=== PATIENT | female | born 1970 | race Caucasian/White ===

== ENCOUNTER 2021-12-05 17:36 | Inpatient (IN) ==
[2021-12-05] MEDS ORDERED: IOPAMIDOL 100 ML BOTTLE IV ONE (17:37)
[2021-12-05] MEDS ORDERED: 0.9 % SODIUM CHLORIDE 1,000 ML IV ONE (17:59)
[2021-12-05] MEDS ORDERED: ONDANSETRON 4 MG/2 ML VIAL IV ONE (17:59)
--- NOTE | 2021-12-05 18:01 | Emergency Department Note ---
Abdominal Pain HPI General Chief Complaint: Abdominal Pain Stated Complaint: cold flu Time Seen by Provider: 12/05/21 17:58 Source: patient Mode of arrival: ambulatory Limitations: no limitations History of Present Illness HPI Narrative: Narrative: Patient is a 51-year-old female that comes into the emergency department today accompanied with her son. Patient reports that 2 weeks ago she started to notice abdominal bloating, diffuse abdominal pain that she describes as aching sensation, nausea, and diarrhea of loose brown stool. She denies melena or hematochezia. She has not had any vomiting. She denies fevers or chills. She has not had chest pain, cough, shortness of breath, or difficulty breathing. Over the last week she has noticed that her skin and eyes have turned yellow. She denies any changes with urine output. She denies any headache, weakness, or confusion. She does report taking all of her regular medications. She does drink 3 hard alcohol drinks a day. She reports her last drink was 2 days ago. She denies having any alcohol withdrawal symptoms, however her family reports that she does have alcohol withdrawal symptoms when she does not drink. Related Data Home Medications Medication Instructions Recorded Confirmed Krill Oil 300 mg PO QDAY 12/06/17 04/08/21 bupropion HCl 150 mg tablet,12 hr 150 mg PO BID tab 12/06/17 04/08/21 sustained-release ibuprofen 200 mg tablet 200 mg PO .COMPLEX 12/06/17 04/08/21 lansoprazole 30 mg capsule,delayed 30 mg PO QDAY cap 12/06/17 04/08/21 release losartan 50 mg-hydrochlorothiazide 1 tab PO QDAY 12/06/17 04/08/21 12.5 mg tablet magnesium oxide 500 mg capsule See Rx Instructions PO QDAY cap 12/06/17 04/08/21 multivitamin See Rx Instructions PO .COMPLEX 12/06/17 04/08/21 folic acid 400 mcg tablet 400 mcg PO QDAY 12/26/17 04/08/21 cyclobenzaprine 10 mg tablet 10 mg PO QDAY tab 03/10/21 04/08/21 diclofenac sodium 1 % topical gel 2 g TOPICAL QID 03/10/21 04/08/21 (Arthritis Pain (diclofenac)) hydrochlorothiazide 12.5 mg tablet 12.5 mg PO QAM 03/10/21 04/08/21 metoprolol succinate 50 mg 50 mg PO QDAY 03/10/21 04/08/21 tablet,extended release 24 hr naproxen sodium 220 mg capsule 440 mg PO BID PRN cap 03/10/21 04/08/21 (Aleve) soy isofla-blk cohosh-mag bark PO 03/10/21 04/08/21 [Estroven] tramadol 50 mg tablet 50 mg PO Q6H PRN 03/10/21 04/08/21 trazodone 50 mg tablet 50 mg PO QHS PRN 03/10/21 04/08/21 turmeric PO BID 03/10/21 04/08/21 Previous Rx's Medication Instructions Recorded ondansetron 4 mg disintegrating 4 mg PO Q4-6HP PRN #10 tab 07/09/20 tablet prednisone 20 mg tablet 40 mg PO QDAY #10 tab 07/21/21 Allergies Allergy/AdvReac Type Severity Reaction Status Date / Time rizatriptan [From Maxalt] AdvReac Mild felt weird Verified 12/06/21 07:38 Review of Systems ROS ROS Narrative: Narrative: All systems ED: reviewed and negative except as stated. [facility] Narrative Patient History Narrative: Narrative: Medical/Surgical/Family History All Active Problems (Updated 12/05/21 @ 20:31 by NYA Bradley) Alcoholic cirrhosis of liver with ascites (Acute) Hyponatremia (Acute) History of tobacco use (Chronic) Insomnia (Chronic) Lumbar radiculopathy (Chronic) Chronic pain (Chronic) Disorder of gallbladder (Chronic) Gastroenteritis (Acute) Acute dehydration (Acute) Elevated aldolase level (Acute) Paresthesia (Acute) Back pain (Acute) Polyarthralgia (Chronic) Rheumatoid factor positive (Chronic) Elevated liver enzymes (Chronic) Steatosis of liver (Chronic) Arthritis (Chronic) Arthralgia (Chronic) Hormonal disorder (Chronic) Anxiety (Chronic) Heartburn (Chronic) Weight loss (Chronic) Indigestion (Chronic) Abdominal pain (Chronic) HTN (hypertension) (Chronic) GERD without esophagitis (Chronic) Generalized anxiety disorder (Chronic) Depression (Chronic) Fatigue (Chronic) Feeling poorly (Chronic) Dysphagia (Chronic) Headache (Chronic) Joint pain (Chronic) Lack of appetite (Chronic) Nausea & vomiting (Acute) Rheumatoid arthritis (Chronic) Medical History Abdominal pain Acute dehydration Anxiety Arthralgia Arthritis Back pain Chronic pain Depression Disorder of gallbladder Dysphagia Elevated aldolase level Elevated liver enzymes Fatigue Feeling poorly Gastroenteritis Generalized anxiety disorder GERD without esophagitis Headache Heartburn History of tobacco use 30 year use - quit 2014 Hormonal disorder hormonal changes HTN (hypertension) Indigestion Insomnia Joint pain Lack of appetite Low back pain Lumbar radiculopathy Nausea & vomiting Paresthesia Polyarthralgia Rheumatoid arthritis Rheumatoid factor positive Steatosis of liver Weight loss Surgical History History of esophagogastroduodenoscopy (EGD) (11/22/17) History of laparoscopic cholecystectomy (02/09/18) Family History Mother Malignant neoplasm of lung Hypertension Alcohol abuse Sister Malignant neoplasm of lung Alcohol abuse Hypertension Father Alcohol abuse Social History Smoking Status: Former smoker Alcohol Intake Frequency: holiday/special occasion only Substance Use: does not use Exam Narrative Narrative: Narrative: General Limitations: no limitations General appearance: Present alert and in no apparent distress Eye Eye: Present EOMI and scleral icterus ENT ENT: Present normal oropharynx and mucous membranes moist Neck Neck: Present normal inspection and full ROM; Absent lymphadenopathy Chest Chest: Present normal inspection and symmetric chest wall rise Respiratory Respiratory: Present normal lung sounds bilaterally; Absent respiratory distress , rales/crackles or accessory muscle use Cardiovascular Cardiovascular: Present regular rate, normal rhythm and normal heart sounds; Absent systolic murmur or diastolic murmur Adbominal Abdominal: Present soft, distention, tenderness (Diffuse mild abdominal tenderness in all 4 quadrants.), normal bowel sounds, organomegaly (Hepatomegaly.) and ascites; Absent rebound, rigidity, mass, pulsatile mass or hernia Extremities Extremities: Present normal inspection, full ROM and normal capillary refill; Absent tenderness or cyanosis Back Back: Present normal inspection and full ROM Neurological Neurological: Present alert and oriented X3 Psychiatric Psychiatric: Present normal affect and normal mood Skin Skin: Present warm (WNL), dry and other (Jaundiced skin to the face and upper extremities.) Course Vital Signs Vital signs: Vital Signs Temperature 97.9 F 12/05/21 17:37 Pulse Rate 128 H 12/05/21 17:37 Respiratory Rate 18 02/05/22 17:37 Blood Pressure 100/68 02/05/22 17:37 Pulse Oximetry (%) 98 12/05/21 17:37 Temperature 98.3 F 12/06/21 08:01 Pulse Rate 122 H 12/06/21 08:01 Respiratory Rate 16 12/06/21 08:01 Blood Pressure 114/96 12/06/21 08:01 Pulse Oximetry (%) 97 12/06/21 08:01 MDM MDM Narrative Medical decision making narrative: Narrative: 51-year-old female that comes into the emergency department today with abdominal distention, pain, and jaundiced. She does drink alcohol. Her alcohol level today is elevated. Acetaminophen level normal. She does have tachycardia and received 1 L normal saline today. Creatinine level 1.6 and bilirubin is 10.8. AST 117. Alkaline phos 755. Patient's sodium is 116. Patient's white count today 17.9. Hemoglobin 11.1 and hematocrit 30.1. Concern of SBP and patient will need to have paracentesis. Ordered blood cultures today. Ordered 1 g Rocephin today in the emergency department to be given. Alcohol level today 0.244. Patient does not appear to show any signs of alcohol withdrawal syndrome. Acetaminophen level is normal. Hepatitis panel negative. Abdominal CT of abdomen and pelvis with contrast was read by direct radiology today and impression shows: 1. Fatty infiltration of liver. Slight nodularity of liver consistent with cirrhosis. Hypoattenuation in the lateral right lobe of liver which could represent a mass. This is not fully evaluated. Recommend perhaps an MRI or multiphase CT. 2. Moderate ascites in the abdomen and pelvis. 3. No evidence of intestinal obstruction. No ileus or enteritis. Moderate fecal debris in colon. Cholecystectomy was noted with no significant dilation of common bile duct. I was able to speak with hospitalist, Dr. Rhodes today about this patient. He does agree to admit patient to [facility] to the PCU. He did recommend drawing a CBC manual differential and a procalcitonin. Will order the urinalysis as this has not been collected yet. Patient will be admitted to [facility] today for the liver cirrhosis, hyponatremia, and concern of potential SBP. Lab Data Lab results reviewed: Yes I reviewed the patient's lab results. Result diagrams: 12/06/21 05:56 12/06/21 05:56 Labs: Lab Results 12/05/21 12/05/21 12/05/21 Range/Units 17:58 17:58 17:59 WBC 17.9 H (4.5-11.0) K/mcL RBC 3.33 L (3.59-5.38) M/mcL Hgb 11.1 L (11.2-15.7) g/dL Hct 30.1 L (34.1-44.9) % POC Hct (36-48) % MCV 90.4 (80.0-100.0) fL MCH 33.3 (26.0-34.0) pg MCHC 36.9 H (31.0-36.0) g/dL RDW 14.7 H (11.5-14.5) % Plt Count 214 (140-440) K/mcL MPV 9.8 (7.4-10.4) fL Neut % (Auto) 70.3 (38.0-78.0) % Lymph % (Auto) 21.1 (15.5-49.0) % [place] % (Auto) 7.9 (1.0-12.0) % Eos % (Auto) 0.4 (0.0-7.0) % Baso % (Auto) 0.3 (0.0-2.0) % Lymph # (Auto) 3.78 (1.50-4.80) K/mcL [place] # (Auto) 1.41 H (0.10-0.90) K/mcL Eos # (Auto) 0.07 (0.00-0.70) K/mcL Baso # (Auto) 0.06 (0.00-0.30) K/mcL Seg Neutrophils % (38-78) % Band Neutrophils % (0-10) % Lymphocytes % (15-49) % Monocytes % (Manual) (1-12) % Eosinophils % (Manual) (0-7) % Absolute Neutrophils 12.58 H (1.80-8.00) K/mcL Nucleated RBCs (0-0) % Platelet Estimate (Normal) RBC Morphology (Normal) Anisocytosis (None Seen) PT 18.0 H (11.9-14.5) sec INR 1.4 H (0.9-1.1) VBG Lactic Acid (0.5-2.0) mmol/L POC Sodium (133-145) mEq/L Sodium 116 L* (133-145) mmol/L POC Potassium (3.3-5.1) mEql/L Potassium 3.2 L (3.3-5.1) mmol/L POC Chloride (96-108) mEq/L Chloride 73 L (96-108) mmol/L Carbon Dioxide 24 (22-30) mmol/L POC Total CO2 (22-30) mmol/L Anion Gap 19.0 H (8.0-16.0) POC BUN (6-20) mg/dL BUN 6 (6-20) mg/dL Creatinine TNP POC Creatinine 1.6 H (0.6-1.2) mg/dL GFR Calculation TNP Glucose 105 (70-105) mg/dL POC Glucose (70-105) mg/dL Osmolality (280-300) mOSM/kg Uric Acid (2.5-8.0) mg/dL Calcium 7.9 L (8.6-10.4) mg/dL POC WB Ioniz Calcium (1.16-1.32) mmEq/L Total Bilirubin 10.8 H (0.1-1.0) mg/dL Direct Bilirubin (<0.3) mg/dL AST 117 H (<32) U/L ALT 33 (<40) U/L Alkaline Phosphatase 755 H (39-117) U/L Ammonia (11-51) umol/L Total Protein 5.9 (5.9-8.4) gm/dL Albumin 2.4 L (3.2-5.2) gm/dL Globulin 3.5 (2.2-3.7) gm/dL Albumin/Globulin Ratio 0.7 L (1.0-2.3) Procalcitonin (<0.10) ng/mL Urine Color Urine Appearance (Clear) Urine pH (5.0-9.0) Ur Specific [place] (1.000-1.035) Urine Protein (Negative) mg/dL Urine Glucose (UA) (Negative) mg/dL Urine Ketones (Negative) mg/dL Urine Occult Blood (Negative) tevin/mcL Urine Nitrate (Negative) Urine Bilirubin (Negative) mg/dL Urine Urobilinogen mg/dL Ur Leukocyte Esterase (Negative) /uL Urine RBC (0-3) /hpf Urine WBC (0-4) /hpf Ur Squamous Epith Cells (0-4) /hpf Urine Bacteria (0) /hpf Urine Mucus (None) /hpf Urine Yeast (Budding) (None) /hpf Ur Culture Indicated? Urine Osmolality (80-1000) mOSM/kg Ur Random Sodium mmol/L Acetaminophen ug/mL Ethyl Alcohol (<0.010) gm/dL Hepatitis A IgM Ab (Non-Reactive) Hep Bs Antigen (Negative) Hep B Core IgM Ab (Non-Reactive) Hepatitis C Antibody (Non-Reactive) 12/05/21 12/05/21 12/05/21 Range/Units 17:59 17:59 18:00 WBC (4.5-11.0) K/mcL RBC (3.59-5.38) M/mcL Hgb (11.2-15.7) g/dL Hct (34.1-44.9) % POC Hct (36-48) % MCV (80.0-100.0) fL MCH (26.0-34.0) pg MCHC (31.0-36.0) g/dL RDW (11.5-14.5) % Plt Count (140-440) K/mcL MPV (7.4-10.4) fL Neut % (Auto) (38.0-78.0) % Lymph % (Auto) (15.5-49.0) % [place] % (Auto) (1.0-12.0) % Eos % (Auto) (0.0-7.0) % Baso % (Auto) (0.0-2.0) % Lymph # (Auto) (1.50-4.80) K/mcL [place] # (Auto) (0.10-0.90) K/mcL Eos # (Auto) (0.00-0.70) K/mcL Baso # (Auto) (0.00-0.30) K/mcL Seg Neutrophils % (38-78) % Band Neutrophils % (0-10) % Lymphocytes % (15-49) % Monocytes % (Manual) (1-12) % Eosinophils % (Manual) (0-7) % Absolute Neutrophils (1.80-8.00) K/mcL Nucleated RBCs (0-0) % Platelet Estimate (Normal) RBC Morphology (Normal) Anisocytosis (None Seen) PT (11.9-14.5) sec INR (0.9-1.1) VBG Lactic Acid (0.5-2.0) mmol/L POC Sodium (133-145) mEq/L Sodium (133-145) mmol/L POC Potassium (3.3-5.1) mEql/L Potassium (3.3-5.1) mmol/L POC Chloride (96-108) mEq/L Chloride (96-108) mmol/L Carbon Dioxide (22-30) mmol/L POC Total CO2 (22-30) mmol/L Anion Gap (8.0-16.0) POC BUN (6-20) mg/dL BUN (6-20) mg/dL Creatinine POC Creatinine (0.6-1.2) mg/dL GFR Calculation Glucose (70-105) mg/dL POC Glucose (70-105) mg/dL Osmolality (280-300) mOSM/kg Uric Acid (2.5-8.0) mg/dL Calcium (8.6-10.4) mg/dL POC WB Ioniz Calcium (1.16-1.32) mmEq/L Total Bilirubin (0.1-1.0) mg/dL Direct Bilirubin (<0.3) mg/dL AST (<32) U/L ALT (<40) U/L Alkaline Phosphatase (39-117) U/L Ammonia 173 H (11-51) umol/L Total Protein (5.9-8.4) gm/dL Albumin (3.2-5.2) gm/dL Globulin (2.2-3.7) gm/dL Albumin/Globulin Ratio (1.0-2.3) Procalcitonin (<0.10) ng/mL Urine Color Urine Appearance (Clear) Urine pH (5.0-9.0) Ur Specific [place] (1.000-1.035) Urine Protein (Negative) mg/dL Urine Glucose (UA) (Negative) mg/dL Urine Ketones (Negative) mg/dL Urine Occult Blood (Negative) tevin/mcL Urine Nitrate (Negative) Urine Bilirubin (Negative) mg/dL Urine Urobilinogen mg/dL Ur Leukocyte Esterase (Negative) /uL Urine RBC (0-3) /hpf Urine WBC (0-4) /hpf Ur Squamous Epith Cells (0-4) /hpf Urine Bacteria (0) /hpf Urine Mucus (None) /hpf Urine Yeast (Budding) (None) /hpf Ur Culture Indicated? Urine Osmolality (80-1000) mOSM/kg Ur Random Sodium mmol/L Acetaminophen ug/mL Ethyl Alcohol 0.244 H (<0.010) gm/dL Hepatitis A IgM Ab Non-reactive (Non-Reactive) Hep Bs Antigen Negative (Negative) Hep B Core IgM Ab Non-reactive (Non-Reactive) Hepatitis C Antibody Non-reactive (Non-Reactive) 12/05/21 12/05/21 12/05/21 Range/Units 18:00 18:00 18:01 WBC TNP (4.5-11.0) K/mcL RBC TNP (3.59-5.38) M/mcL Hgb TNP (11.2-15.7) g/dL Hct TNP (34.1-44.9) % POC Hct (36-48) % MCV TNP (80.0-100.0) fL MCH TNP (26.0-34.0) pg MCHC TNP (31.0-36.0) g/dL RDW TNP (11.5-14.5) % Plt Count TNP (140-440) K/mcL MPV TNP (7.4-10.4) fL Neut % (Auto) (38.0-78.0) % Lymph % (Auto) (15.5-49.0) % [place] % (Auto) (1.0-12.0) % Eos % (Auto) (0.0-7.0) % Baso % (Auto) (0.0-2.0) % Lymph # (Auto) (1.50-4.80) K/mcL [place] # (Auto) (0.10-0.90) K/mcL Eos # (Auto) (0.00-0.70) K/mcL Baso # (Auto) (0.00-0.30) K/mcL Seg Neutrophils % 73 (38-78) % Band Neutrophils % 1 (0-10) % Lymphocytes % 16 (15-49) % Monocytes % (Manual) 9 (1-12) % Eosinophils % (Manual) 1 (0-7) % Absolute Neutrophils (1.80-8.00) K/mcL Nucleated RBCs 1 H (0-0) % Platelet Estimate Normal (Normal) RBC Morphology Abnormal A (Normal) Anisocytosis 1+ A (None Seen) PT (11.9-14.5) sec INR (0.9-1.1) VBG Lactic Acid (0.5-2.0) mmol/L POC Sodium (133-145) mEq/L Sodium (133-145) mmol/L POC Potassium (3.3-5.1) mEql/L Potassium (3.3-5.1) mmol/L POC Chloride (96-108) mEq/L Chloride (96-108) mmol/L Carbon Dioxide (22-30) mmol/L POC Total CO2 (22-30) mmol/L Anion Gap (8.0-16.0) POC BUN (6-20) mg/dL BUN (6-20) mg/dL Creatinine POC Creatinine (0.6-1.2) mg/dL GFR Calculation Glucose (70-105) mg/dL POC Glucose (70-105) mg/dL Osmolality (280-300) mOSM/kg Uric Acid (2.5-8.0) mg/dL Calcium (8.6-10.4) mg/dL POC WB Ioniz Calcium (1.16-1.32) mmEq/L Total Bilirubin (0.1-1.0) mg/dL Direct Bilirubin (<0.3) mg/dL AST (<32) U/L ALT (<40) U/L Alkaline Phosphatase (39-117) U/L Ammonia (11-51) umol/L Total Protein (5.9-8.4) gm/dL Albumin (3.2-5.2) gm/dL Globulin (2.2-3.7) gm/dL Albumin/Globulin Ratio (1.0-2.3) Procalcitonin 0.53 H (<0.10) ng/mL Urine Color Urine Appearance (Clear) Urine pH (5.0-9.0) Ur Specific [place] (1.000-1.035) Urine Protein (Negative) mg/dL Urine Glucose (UA) (Negative) mg/dL Urine Ketones (Negative) mg/dL Urine Occult Blood (Negative) tevin/mcL Urine Nitrate (Negative) Urine Bilirubin (Negative) mg/dL Urine Urobilinogen mg/dL Ur Leukocyte Esterase (Negative) /uL Urine RBC (0-3) /hpf Urine WBC (0-4) /hpf Ur Squamous Epith Cells (0-4) /hpf Urine Bacteria (0) /hpf Urine Mucus (None) /hpf Urine Yeast (Budding) (None) /hpf Ur Culture Indicated? Urine Osmolality (80-1000) mOSM/kg Ur Random Sodium mmol/L Acetaminophen < 5.0 ug/mL Ethyl Alcohol (<0.010) gm/dL Hepatitis A IgM Ab (Non-Reactive) Hep Bs Antigen (Negative) Hep B Core IgM Ab (Non-Reactive) Hepatitis C Antibody (Non-Reactive) 12/05/21 12/05/21 12/05/21 Range/Units 21:40 21:40 21:40 WBC (4.5-11.0) K/mcL RBC (3.59-5.38) M/mcL Hgb (11.2-15.7) g/dL Hct (34.1-44.9) % POC Hct 38 (36-48) % MCV (80.0-100.0) fL MCH (26.0-34.0) pg MCHC (31.0-36.0) g/dL RDW (11.5-14.5) % Plt Count (140-440) K/mcL MPV (7.4-10.4) fL Neut % (Auto) (38.0-78.0) % Lymph % (Auto) (15.5-49.0) % [place] % (Auto) (1.0-12.0) % Eos % (Auto) (0.0-7.0) % Baso % (Auto) (0.0-2.0) % Lymph # (Auto) (1.50-4.80) K/mcL [place] # (Auto) (0.10-0.90) K/mcL Eos # (Auto) (0.00-0.70) K/mcL Baso # (Auto) (0.00-0.30) K/mcL Seg Neutrophils % (38-78) % Band Neutrophils % (0-10) % Lymphocytes % (15-49) % Monocytes % (Manual) (1-12) % Eosinophils % (Manual) (0-7) % Absolute Neutrophils (1.80-8.00) K/mcL Nucleated RBCs (0-0) % Platelet Estimate (Normal) RBC Morphology (Normal) Anisocytosis (None Seen) PT (11.9-14.5) sec INR (0.9-1.1) VBG Lactic Acid (0.5-2.0) mmol/L POC Sodium 120 L (133-145) mEq/L Sodium (133-145) mmol/L POC Potassium 3.2 L (3.3-5.1) mEql/L Potassium (3.3-5.1) mmol/L POC Chloride 78 L (96-108) mEq/L Chloride (96-108) mmol/L Carbon Dioxide (22-30) mmol/L POC Total CO2 27 (22-30) mmol/L Anion Gap (8.0-16.0) POC BUN 4 L (6-20) mg/dL BUN (6-20) mg/dL Creatinine POC Creatinine 1.6 H (0.6-1.2) mg/dL GFR Calculation Glucose (70-105) mg/dL POC Glucose 84 (70-105) mg/dL Osmolality 311 H (280-300) mOSM/kg Uric Acid 6.1 (2.5-8.0) mg/dL Calcium (8.6-10.4) mg/dL POC WB Ioniz Calcium 0.89 L (1.16-1.32) mmEq/L Total Bilirubin (0.1-1.0) mg/dL Direct Bilirubin (<0.3) mg/dL AST (<32) U/L ALT (<40) U/L Alkaline Phosphatase (39-117) U/L Ammonia (11-51) umol/L Total Protein (5.9-8.4) gm/dL Albumin (3.2-5.2) gm/dL Globulin (2.2-3.7) gm/dL Albumin/Globulin Ratio (1.0-2.3) Procalcitonin (<0.10) ng/mL Urine Color Yellow Urine Appearance Clear (Clear) Urine pH 6.0 (5.0-9.0) Ur Specific [place] <= 1.005 (1.000-1.035) Urine Protein Negative (Negative) mg/dL Urine Glucose (UA) Negative (Negative) mg/dL Urine Ketones Negative (Negative) mg/dL Urine Occult Blood Moderate A (Negative) tevin/mcL Urine Nitrate Negative (Negative) Urine Bilirubin Negative (Negative) mg/dL Urine Urobilinogen Normal mg/dL Ur Leukocyte Esterase Negative (Negative) /uL Urine RBC 0 (0-3) /hpf Urine WBC 0 (0-4) /hpf Ur Squamous Epith Cells 2 (0-4) /hpf Urine Bacteria None (0) /hpf Urine Mucus Few A (None) /hpf Urine Yeast (Budding) Few A (None) /hpf Ur Culture Indicated? Yes Urine Osmolality 26 L (80-1000) mOSM/kg Ur Random Sodium 10 mmol/L Acetaminophen ug/mL Ethyl Alcohol (<0.010) gm/dL Hepatitis A IgM Ab (Non-Reactive) Hep Bs Antigen (Negative) Hep B Core IgM Ab (Non-Reactive) Hepatitis C Antibody (Non-Reactive) 12/05/21 12/05/21 Range/Units 21:40 22:16 WBC (4.5-11.0) K/mcL RBC (3.59-5.38) M/mcL Hgb (11.2-15.7) g/dL Hct (34.1-44.9) % POC Hct (36-48) % MCV (80.0-100.0) fL MCH (26.0-34.0) pg MCHC (31.0-36.0) g/dL RDW (11.5-14.5) % Plt Count (140-440) K/mcL MPV (7.4-10.4) fL Neut % (Auto) (38.0-78.0) % Lymph % (Auto) (15.5-49.0) % [place] % (Auto) (1.0-12.0) % Eos % (Auto) (0.0-7.0) % Baso % (Auto) (0.0-2.0) % Lymph # (Auto) (1.50-4.80) K/mcL [place] # (Auto) (0.10-0.90) K/mcL Eos # (Auto) (0.00-0.70) K/mcL Baso # (Auto) (0.00-0.30) K/mcL Seg Neutrophils % (38-78) % Band Neutrophils % (0-10) % Lymphocytes % (15-49) % Monocytes % (Manual) (1-12) % Eosinophils % (Manual) (0-7) % Absolute Neutrophils (1.80-8.00) K/mcL Nucleated RBCs (0-0) % Platelet Estimate (Normal) RBC Morphology (Normal) Anisocytosis (None Seen) PT (11.9-14.5) sec INR (0.9-1.1) VBG Lactic Acid 5.8 H* (0.5-2.0) mmol/L POC Sodium (133-145) mEq/L Sodium (133-145) mmol/L POC Potassium (3.3-5.1) mEql/L Potassium (3.3-5.1) mmol/L POC Chloride (96-108) mEq/L Chloride (96-108) mmol/L Carbon Dioxide (22-30) mmol/L POC Total CO2 (22-30) mmol/L Anion Gap (8.0-16.0) POC BUN (6-20) mg/dL BUN (6-20) mg/dL Creatinine POC Creatinine (0.6-1.2) mg/dL GFR Calculation Glucose (70-105) mg/dL POC Glucose (70-105) mg/dL Osmolality (280-300) mOSM/kg Uric Acid (2.5-8.0) mg/dL Calcium (8.6-10.4) mg/dL POC WB Ioniz Calcium (1.16-1.32) mmEq/L Total Bilirubin (0.1-1.0) mg/dL Direct Bilirubin 7.1 H (<0.3) mg/dL AST (<32) U/L ALT (<40) U/L Alkaline Phosphatase (39-117) U/L Ammonia (11-51) umol/L Total Protein (5.9-8.4) gm/dL Albumin (3.2-5.2) gm/dL Globulin (2.2-3.7) gm/dL Albumin/Globulin Ratio (1.0-2.3) Procalcitonin (<0.10) ng/mL Urine Color Urine Appearance (Clear) Urine pH (5.0-9.0) Ur Specific [place] (1.000-1.035) Urine Protein (Negative) mg/dL Urine Glucose (UA) (Negative) mg/dL Urine Ketones (Negative) mg/dL Urine Occult Blood (Negative) tevin/mcL Urine Nitrate (Negative) Urine Bilirubin (Negative) mg/dL Urine Urobilinogen mg/dL Ur Leukocyte Esterase (Negative) /uL Urine RBC (0-3) /hpf Urine WBC (0-4) /hpf Ur Squamous Epith Cells (0-4) /hpf Urine Bacteria (0) /hpf Urine Mucus (None) /hpf Urine Yeast (Budding) (None) /hpf Ur Culture Indicated? Urine Osmolality (80-1000) mOSM/kg Ur Random Sodium mmol/L Acetaminophen ug/mL Ethyl Alcohol (<0.010) gm/dL Hepatitis A IgM Ab (Non-Reactive) Hep Bs Antigen (Negative) Hep B Core IgM Ab (Non-Reactive) Hepatitis C Antibody (Non-Reactive) ED POC Tests ED POC Tests: SEGUN - SARS Antigen Negative EKG Data EKG #1: EKG attestation: Yes I reviewed and interpreted this EKG. and Yes There are no EKG findings of acute coronary syndrome EKG shows normal: sinus rhythm Rate: tachycardia Discharge Plan Patient/Caregiver Discharge Instructions Pt seen by HYDROGEN TREATER/PA only: No Clinical Impression: Alcoholic cirrhosis of liver with ascites, Hyponatremia Patient Disposition: Xfer As Inpt ([facility] [place] Condition: Fair Discharge Date/Time: 12/05/21 23:26 Discharge Location: [facility]
[2021-12-05 18:21] LABS: POC Creatinine 1.6 mg/dL (0.6-1.2)
[2021-12-05 19:18] LABS: Alcohol,Blood 0.244 gm/dL (<0.010); INR 1.4 (0.9-1.1)
[2021-12-05 19:30] LABS: Basophils # (Auto) 0.06 K/mcL (0.00-0.30); Basophils % (Auto) 0.3 % (0.0-2.0); Eosinophils # (Auto) 0.07 K/mcL (0.00-0.70); Eosinophils % (Auto) 0.4 % (0.0-7.0); Hematocrit 30.1 % (34.1-44.9); Hemoglobin 11.1 g/dL (11.2-15.7); Lymphocytes # (Auto) 3.78 K/mcL (1.50-4.80); Lymphocytes % (Auto) 21.1 % (15.5-49.0); Mean Cell Volume 90.4 fL (80.0-100.0); Mean Corpuscular HGB Conc 36.9 g/dL (31.0-36.0); Mean Platelet Volume 9.8 fL (7.4-10.4); Monocytes # (Auto) 1.41 K/mcL (0.10-0.90); Monocytes % (Auto) 7.9 % (1.0-12.0); Neutrophils % (Auto) 70.3 % (38.0-78.0); Platelet Count 214 K/mcL (140-440); RBC 3.33 M/mcL (3.59-5.38); Red Cell Distribution Width 14.7 % (11.5-14.5); WBC 17.9 K/mcL (4.5-11.0)
[2021-12-05 19:33] LABS: ALT/SGPT 33 U/L (<40); AST/SGOT 117 U/L (<32); Albumin 2.4 gm/dL (3.2-5.2); Albumin/Globulin Ratio 0.7 (1.0-2.3); Alkaline Phosphatase 755 U/L (39-117); Bilirubin,Total 10.8 mg/dL (0.1-1.0); Blood Urea Nitrogen 6 mg/dL (6-20); Calcium 7.9 mg/dL (8.6-10.4); Carbon Dioxide 24 mmol/L (22-30); Chloride 73 mmol/L (96-108); Globulin 3.5 gm/dL (2.2-3.7); Glucose 105 mg/dL (70-105)
[2021-12-05 19:48] LABS: Hepatitis B Surface Antigen Negative (Negative); Hepatitis C Virus Antibody Non-Reactive (Non-Reactive)
[2021-12-05] MEDS ORDERED: cefTRIAXone 1 GM VIAL IV ONE (20:04)
[2021-12-05] MEDS ORDERED: THIAMINE 100 MG in 0.9 % SODIUM CHLORIDE 50 ML IV ONE (22:02)
--- NOTE | 2021-12-05 22:07 | Internal Med History&Physical ---
HPI History of Present Illness Patient information: Note initiated : 12/05/21 at 9:49 pm Service Date, if different from initiated Date: [] Patient: Berkley Elizalde a 51 y/o F admitted on for cold flu. Chief Complaint: [] History of present illness: Ms. Elizalde is a 51 year old F To the hospital with generalized malaise and weakness and abdominal bloating over the past couple weeks. She had some headaches nausea and loose stools. Denies hematemesis or melena. No vomiting. Denies fever chills. No cough shortness of breath or chest pain. Per family has noticed her distended abdomen and more significantly her skin color change in eye color change to yellow. She is a chronic alcohol user and admitted to 3 hard drinks per day to the PA in the ED but family says she drinks more than that. Family also reported that she does have withdrawal symptoms when she does not drink. She does not carry a diagnosis of cirrhosis. In the ED her bilirubin was 10. CT abdomen pelvis did not show any biliary dilation but did show fatty infiltration and nodularity, moderate ascites. INR was 1.4 Sodium was 116 Leukocytosis. Alcohol level 244 Ammonia 173 and an elevated AST Review of Systems: Pertinent positives as above. Denies fever/chills//vomiting/chest pain/cough/dyspnea. Remaining 10 point review of system reviewed negative PFSH PFSH All Active Problems (Updated 12/05/21 @ 20:31 by NYA Bradley) Alcoholic cirrhosis of liver with ascites (Acute) Hyponatremia (Acute) History of tobacco use (Chronic) Insomnia (Chronic) Lumbar radiculopathy (Chronic) Chronic pain (Chronic) Disorder of gallbladder (Chronic) Gastroenteritis (Acute) Acute dehydration (Acute) Elevated aldolase level (Acute) Paresthesia (Acute) Back pain (Acute) Polyarthralgia (Chronic) Rheumatoid factor positive (Chronic) Elevated liver enzymes (Chronic) Steatosis of liver (Chronic) Arthritis (Chronic) Arthralgia (Chronic) Hormonal disorder (Chronic) Anxiety (Chronic) Heartburn (Chronic) Weight loss (Chronic) Indigestion (Chronic) Abdominal pain (Chronic) HTN (hypertension) (Chronic) GERD without esophagitis (Chronic) Generalized anxiety disorder (Chronic) Depression (Chronic) Fatigue (Chronic) Feeling poorly (Chronic) Dysphagia (Chronic) Headache (Chronic) Joint pain (Chronic) Lack of appetite (Chronic) Nausea & vomiting (Acute) Rheumatoid arthritis (Chronic) Medical History Abdominal pain Acute dehydration Anxiety Arthralgia Arthritis Back pain Chronic pain Depression Disorder of gallbladder Dysphagia Elevated aldolase level Elevated liver enzymes Fatigue Feeling poorly Gastroenteritis Generalized anxiety disorder GERD without esophagitis Headache Heartburn History of tobacco use 30 year use - quit 2014 Hormonal disorder hormonal changes HTN (hypertension) Indigestion Insomnia Joint pain Lack of appetite Low back pain Lumbar radiculopathy Nausea & vomiting Paresthesia Polyarthralgia Rheumatoid arthritis Rheumatoid factor positive Steatosis of liver Weight loss Surgical History History of esophagogastroduodenoscopy (EGD) (11/22/17) History of laparoscopic cholecystectomy (02/09/18) Family History Mother Malignant neoplasm of lung Hypertension Alcohol abuse Sister Malignant neoplasm of lung Alcohol abuse Hypertension Father Alcohol abuse Social History (Updated 03/27/21 @ 11:21 by Corin Hackett) marital status: education level: college occupational status: 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: 2 children smoking status: Former smoker alcohol intake frequency: holiday/special occasion only substance use type: does not use MEDS/ALLERGIES Home Medications and Allergies Home Medications Medication Instructions Recorded Confirmed Type Krill Oil 300 mg PO QDAY 12/06/17 04/08/21 History bupropion HCl 150 mg tablet,12 hr 150 mg PO BID tab 12/06/17 04/08/21 History sustained-release ibuprofen 200 mg tablet 200 mg PO .COMPLEX 12/06/17 04/08/21 History lansoprazole 30 mg capsule,delayed 30 mg PO QDAY cap 12/06/17 04/08/21 History release losartan 50 mg-hydrochlorothiazide 1 tab PO QDAY 12/06/17 04/08/21 History 12.5 mg tablet magnesium oxide 500 mg capsule See Rx Instructions PO QDAY cap 12/06/17 04/08/21 History multivitamin See Rx Instructions PO .COMPLEX 12/06/17 04/08/21 History folic acid 400 mcg tablet 400 mcg PO QDAY 12/26/17 04/08/21 History ondansetron 4 mg disintegrating 4 mg PO Q4-6HP PRN #10 tab 07/09/20 04/08/21 Rx tablet cyclobenzaprine 10 mg tablet 10 mg PO QDAY tab 03/10/21 04/08/21 History diclofenac sodium 1 % topical gel 2 g TOPICAL QID 03/10/21 04/08/21 History (Arthritis Pain (diclofenac)) hydrochlorothiazide 12.5 mg tablet 12.5 mg PO QAM 03/10/21 04/08/21 History metoprolol succinate 50 mg 50 mg PO QDAY 03/10/21 04/08/21 History tablet,extended release 24 hr naproxen sodium 220 mg capsule 440 mg PO BID PRN cap 03/10/21 04/08/21 History (Aleve) soy isofla-blk cohosh-mag bark PO 03/10/21 04/08/21 History [Estroven] tramadol 50 mg tablet 50 mg PO Q6H PRN 03/10/21 04/08/21 History trazodone 50 mg tablet 50 mg PO QHS PRN 03/10/21 04/08/21 History turmeric PO BID 03/10/21 04/08/21 History prednisone 20 mg tablet 40 mg PO QDAY #10 tab 07/21/21 Rx Allergies Allergy/AdvReac Type Severity Reaction Status Date / Time rizatriptan [From [facility]] Allergy Unknown felt weird Verified 04/08/21 10:39 EXAM Constitutional Vitals: Temp Pulse Resp BP Pulse Ox 97.9 F 117 H 18 111/83 97 12/05/21 17:37 12/05/21 21:28 12/05/21 17:37 12/05/21 21:15 12/05/21 21:28 Exam: General: Alert, Awake, No acute Distress Eyes/N/T: EOMI, PERRL, scleral icterus Head/Neck: neck supple, normocephalic atraumatic CV: Tacky but regular, No murmurs, normal s1/s2 Pulm: Clear b/l, no wheezing/rhonchi/rales Abd: soft, mildly distended and mild tenderness to palpation analyzed, +BS x4 Ext: no clubbing/cyanosis/edema Neuro: Alert, no focal deficits, moves all extremities, CN 2-12 grossly intact, symmetrical strength b/l upper/lower, sensations intact b/l upper/lower Skin: warm/dry DATA Data Completed and Pending Labs: Labs from last 24 hours 12/05/21 12/05/21 12/05/21 18:01 18:00 18:00 WBC Pending RBC Pending Hgb Pending Hct Pending MCV Pending MCH Pending MCHC Pending RDW Pending Plt Count Pending MPV Pending Neut % (Auto) Lymph % (Auto) Republic % (Auto) Eos % (Auto) Baso % (Auto) Lymph # (Auto) Republic # (Auto) Eos # (Auto) Baso # (Auto) Absolute Neutrophils Platelet Estimate Pending RBC Morphology Pending PT INR Sodium Potassium Chloride Carbon Dioxide Anion Gap BUN Creatinine POC Creatinine GFR Calculation Glucose Calcium Total Bilirubin AST ALT Alkaline Phosphatase Ammonia Total Protein Albumin Globulin Albumin/Globulin Ratio Procalcitonin Pending Acetaminophen < 5.0 Ethyl Alcohol Hepatitis A IgM Ab Hep Bs Antigen Hep B Core IgM Ab Hepatitis C Antibody 12/05/21 12/05/21 12/05/21 18:00 17:59 17:59 WBC RBC Hgb Hct MCV MCH MCHC RDW Plt Count MPV Neut % (Auto) Lymph % (Auto) Republic % (Auto) Eos % (Auto) Baso % (Auto) Lymph # (Auto) Republic # (Auto) Eos # (Auto) Baso # (Auto) Absolute Neutrophils Platelet Estimate RBC Morphology PT INR Sodium Potassium Chloride Carbon Dioxide Anion Gap BUN Creatinine POC Creatinine GFR Calculation Glucose Calcium Total Bilirubin AST ALT Alkaline Phosphatase Ammonia 173 H Total Protein Albumin Globulin Albumin/Globulin Ratio Procalcitonin Acetaminophen Ethyl Alcohol 0.244 H Hepatitis A IgM Ab Non-reactive Hep Bs Antigen Negative Hep B Core IgM Ab Non-reactive Hepatitis C Antibody Non-reactive 12/05/21 12/05/21 12/05/21 17:59 17:58 17:58 WBC 17.9 H RBC 3.33 L Hgb 11.1 L Hct 30.1 L MCV 90.4 MCH 33.3 MCHC 36.9 H RDW 14.7 H Plt Count 214 MPV 9.8 Neut % (Auto) 70.3 Lymph % (Auto) 21.1 Republic % (Auto) 7.9 Eos % (Auto) 0.4 Baso % (Auto) 0.3 Lymph # (Auto) 3.78 Republic # (Auto) 1.41 H Eos # (Auto) 0.07 Baso # (Auto) 0.06 Absolute Neutrophils 12.58 H Platelet Estimate RBC Morphology PT 18.0 H INR 1.4 H Sodium 116 L* Potassium 3.2 L Chloride 73 L Carbon Dioxide 24 Anion Gap 19.0 H BUN 6 Creatinine TNP POC Creatinine 1.6 H GFR Calculation TNP Glucose 105 Calcium 7.9 L Total Bilirubin 10.8 H AST 117 H ALT 33 Alkaline Phosphatase 755 H Ammonia Total Protein 5.9 Albumin 2.4 L Globulin 3.5 Albumin/Globulin Ratio 0.7 L Procalcitonin Acetaminophen Ethyl Alcohol Hepatitis A IgM Ab Hep Bs Antigen Hep B Core IgM Ab Hepatitis C Antibody A/P Narrative A/P Narrative: A: *Hyponatremia: 2/2 cirrhosis *Acute alcoholic hepatitis: Diminished function score = 34 *Cirrhosis, alcoholic: w/mild coagulopathy & hyperbilirubinemia & elevated ammonia -MELD=27(20%mortality), Child-Mendez=class C (45%/35%) *Alcohol abuse: High risk for withdrawal *Leukocytosis: No source of infection found yet, versus reactive *Hypokalemia: *Coagulopathy *Depression: *GERD: *Chronic pain: P: -3%/desmopressin, f/u sodium -paracentesis in AM -prednisolone 40mg x28 days, followed by 16-day taper -CIWA protocol, vitamins, prn benzo -liver u/s with doppler -lactulose, f/u ammonia -UA/pct pending, f/u wbc -lasix/aldactone prior to d/c -f/u closely with GI/prescription benefit specialist -Home medication reconciliation -ppx: Lovenox(after paracentesis)/home PPI Full code Time Spent With Patient Time: Total time spent is greater than 50% in coordination of care (as documented) at patient's floor/unit and/or counseling patient:
[2021-12-05 22:08] LABS: Anisocytosis 1+ (None Seen); Band Neutrophils % 1 % (0-10); Eosinophils % (Manual) 1 % (0-7); Lymphocytes % 16 % (15-49); Monocytes % (Manual) 9 % (1-12); Nucleated Red Blood Cells 1 % (0-0); Platelet Estimate NORMAL (Normal); RBC Morphology ABNORMAL (Normal); Segmented Neutrophils % 73 % (38-78)
[2021-12-05 22:41] LABS: Appearance,Urine Clear (Clear); Bilirubin,Urine Negative (Negative); Color,Urine Yellow; Culture Indicated,Urine Yes; Glucose,Urine (UA) Negative (Negative); Ketones,Urine Negative (Negative); Leukocyte Esterase,Urine Negative /uL (Negative); Mucus,Urine FEW /hpf; Nitrate,Urine Negative (Negative); Osmolality,Urine 26 mOSM/kg (80-1000); Protein,Urine Negative (Negative); Specific Gravity,Urine <= 1.005 (1.000-1.035); Urine Blood Moderate ery/mcL (Negative); Urine Budding Yeast FEW /hpf; Urine RBC 0 /hpf (0-3); Urine Squamous Epithelial Cell 2 /hpf (0-4); Urine WBC 0 /hpf (0-4); Urobilinogen,Urine Normal
[2021-12-05 22:44] LABS: POC Calcium, Ionized 0.89 mmEq/L (1.16-1.32); POC Creatinine 1.6 mg/dL (0.6-1.2); POC Potassium 3.2 mEql/L (3.3-5.1)
[2021-12-05] MEDS ORDERED: 0.9 % SODIUM CHLORIDE 500 ML IV ONE (22:52)
[2021-12-05 22:59] LABS: Uric Acid 6.1 mg/dL (2.5-8.0)
[2021-12-05 23:00] LABS: Sodium, Urine Random 10 mmol/L
[2021-12-05] MEDS ORDERED: cefTRIAXone 2 GM in DEXTROSE 5% IN WATER 50 ML IV SCH (23:00)
[2021-12-05] MEDS: 0.9 % SODIUM CHLORIDE 10 ML SYRINGE IV SCH (23:30)
[2021-12-05] MEDS ORDERED: SODIUM CHLORIDE 3 % 500 ML IV SCH (23:32)
[2021-12-05] MEDS ORDERED: LORazepam 2 MG/ML VIAL IV PRN (23:32)
[2021-12-05] MEDS ORDERED: MAGNESIUM SULFATE 2 GM/50 ML BAG IV PRN (23:32)
[2021-12-05] MEDS ORDERED: LACTULOSE 20 GM/30 ML ORAL.SOL PO SCH (23:32)
[2021-12-05] MEDS ORDERED: POTASSIUM CHLORIDE 20 MEQ TABLET PO PRN ×2 (23:32)
[2021-12-05] MEDS ORDERED: ONDANSETRON 4 MG/2 ML VIAL IV PRN (23:32)
[2021-12-05] MEDS ORDERED: METOCLOPRAMIDE 10 MG/2 ML VIAL IV PRN (23:32)
[2021-12-05] MEDS ORDERED: IPRATROPIUM/ALBUTEROL 3 ML AMPUL.NEB NEB PRN (23:32)
[2021-12-05] MEDS ORDERED: POTASSIUM CHLORIDE 20 MEQ TABLET PO ONE (23:32)
[2021-12-05] MEDS ORDERED: POTASSIUM CHLORIDE 40 MEQ in DEXTROSE 5% IN WATER 500 ML IV PRN (23:32)
[2021-12-06] MEDS ORDERED: POTASSIUM CHLORIDE 20 MEQ TABLET PO ONE (00:23)
[2021-12-06] MEDS ORDERED: cefTRIAXone 2 GM VIAL ONE (00:23)
[2021-12-06] MEDS ORDERED: LACTULOSE 20 GM/30 ML ORAL.SOL ONE (00:24)
[2021-12-06] MEDS ORDERED: cefTRIAXone 1 GM VIAL ONE (01:01)
[2021-12-06] MEDS: 0.9 % SODIUM CHLORIDE 10 ML SYRINGE IV SCH ×7 (01:15→20:26)
[2021-12-06] MEDS: DESMOPRESSIN ACETATE 1 MCG in 0.9 % SODIUM CHLORIDE 50 ML IV SCH ×3 (01:21→13:45)
[2021-12-06] MEDS: prednisoLONE 15 MG/5 ML ORAL SOL PO SCH ×2 (02:09→09:00)
[2021-12-06] MEDS ORDERED: ONDANSETRON 4 MG/2 ML VIAL ONE (02:26)
[2021-12-06 02:30] LABS: POC Blood Urea Nitrogen 5 mg/dL (6-20); POC CO2 25 mmol/L (22-30); POC Calcium, Ionized 0.78 mmEq/L (1.16-1.32); POC Chloride 80 mEq/L (96-108); POC Creatinine 1.4 mg/dL (0.6-1.2); POC Glucose, Random 79 mg/dL (70-105); POC Hematocrit 37 % (36-48); POC Potassium 2.9 mEql/L (3.3-5.1); POC Sodium 122 mEq/L (133-145)
[2021-12-06] MEDS ORDERED: POTASSIUM CHLORIDE 20 MEQ/10 ML VIAL IV ONE (03:24)
--- NOTE | 2021-12-06 03:33 | Cat Scan Report ---
CLINICAL INFORMATION: Abdominal pain, bloating and jaundice COMPARISON: None. TECHNIQUE: Following enteric contrast, 80 cc of Isovue-370 were injected intravenously, and 60 seconds later, 0.625 mm helical slices were obtained from the mid heart through the subtrochanteric regions. Following reconstruction, 2.5 mm sagittal, coronal and axial reformatted images were processed and reviewed at bone, lung and soft tissue windows. Five minutes later, 0.625 mm helical slices were obtained from the mid heart through the kidneys and viewed at soft tissue windows.The exam was performed using radiation dose optimization techniques including, but not limited to, automated exposure control, adjustment of the mA and/or kV according to patient size and use of iterative reconstruction technique. FINDINGS: The lung bases show small left pleural effusion and scattered subsegmental atelectasis and/or scarring. No nodules. The visualized heart is grossly normal. Abdominal images show severe diffuse fatty infiltration of the liver which is moderately enlarged-18 cm in vertical dimension at midclavicular line. The attenuation pattern is also inhomogeneous with slight cortical irregularity suggestive of cirrhosis. Multiple extraordinarily vague low-attenuation lesions scattered throughout the periphery of the liver which are difficult to characterize given the fatty background. The largest is 3.5 cm in the inferior hepatic lobe. There is a 3 cm homogeneous fat-containing lesion in the man hepatis region. These could potentially represent metastases from unknown primary carcinoma. The infrahepatic IVC is markedly constricted suggesting surrounding fibrosis from hepatic cirrhosis. Moderate varices are seen in the periesophageal and perigastric region with mild varices in the splenic region. Moderate ascites is predominantly located in the pelvic region. The gallbladder is surgically absent. The intrahepatic and common hepatic ducts are normal caliber. The common bile duct is mildly dilated-8 mm. A extremely vague 22 mm low-attenuation lesion in the medial pancreatic head may represent a cyst or mass. The pancreatic duct is normal caliber. Both kidneys, adrenal glands, spleen and aorta including aortic branches are normal in size configuration and attenuation without focal lesion. There is no free air or adenopathy. Pelvic images show urinary bladder is collapsed due to ascites. Slightly retroverted uterus is normal postmenopausal size 6.7 x 3.1 cm. There is moderate thickening of the endometrium measures 14 mm. Bone windows show no focal osseous lesions. There is congestion of the anterior epidural veins throughout the lumbar spine. IMPRESSION: 1. Hepatomegaly with severe hepatic steatosis. Probable cirrhosis featuring extrinsic compression infrahepatic IVC, moderate varices in the paraesophageal and gastric region with mild varices in the perisplenic region. There is also moderate ascites. 2. Scattered vague low-attenuation foci in the periphery of the liver are difficult to characterize given the severe fatty background. This may merely represent more concentrated region of fat or metastatic disease from unknown primary carcinoma. A 2.9 cm lipoma is seen in the man hepatis region. Suggest abdominal MRI/MRCP to better characterize the liver. 3. Straightly magnetic 2.2 cm low-attenuation lesion in the medial pancreatic head may represent a cyst or mass or mass. This will also be best evaluated with abdominal MRI. 4. Mild endometrial thickening. If the patient is premenopausal, this may be within normal limits. If postmenopausal, this would be considered abnormal. Please correlate with pelvic ultrasound. 5. Small left pleural effusion. Interpreted and Authenticated by: Adam Meehan 12/06/21
[2021-12-06] MEDS: chlordiazePOXIDE 25 MG CAPSULE PO PRN ×2 (05:41→10:29)
[2021-12-06] MEDS ORDERED: chlordiazePOXIDE 25 MG CAPSULE PO ONE ×2 (05:43→05:44)
[2021-12-06 08:04] LABS: Hemoglobin 10.1 g/dL (11.2-15.7); Mean Corpuscular HGB Conc 36.1 g/dL (31.0-36.0); Mean Platelet Volume 10.1 fL (7.4-10.4); Platelet Count 192 K/mcL (140-440); RBC 2.98 M/mcL (3.59-5.38); Red Cell Distribution Width 15.4 % (11.5-14.5); WBC 15.5 K/mcL (4.5-11.0)
[2021-12-06] MEDS ORDERED: ALBUMIN HUMAN 25 GM/100 ML BAG IV ONE (08:08)
--- NOTE | 2021-12-06 08:12 | Internal Med Progress Note ---
SUBJECTIVE Subjective Patient information: Note initiated : 12/06/21 at 8:03 am Service Date, if different from initiated Date: [] Patient: Berkley Elizalde 51 y/o F admitted on 12/05/21 for cold flu. Chief Complaint: [] Interval history: History of present illness: Ms. Elizalde is a 51 year old F To the hospital with generalized malaise and weakness and abdominal bloating over the past couple weeks. She had some headaches nausea and loose stools. Denies hematemesis or melena. No vomiting. Denies fever chills. No cough shortness of breath or chest pain. Per family has noticed her distended abdomen and more significantly her skin color change in eye color change to yellow. She is a chronic alcohol user and admitted to 3 hard drinks per day to the PA in the ED but family says she drinks more than that. Family also reported that she does have withdrawal symptoms when she does not drink. She does not carry a diagnosis of cirrhosis. In the ED her bilirubin was 10. CT abdomen pelvis did not show any biliary dilation but did show fatty infiltration and nodularity, moderate ascites. INR was 1.4 Sodium was 116 Leukocytosis. Alcohol level 244 Ammonia 173 and an elevated AST 2/6 No overnight event or new complaints. Patient denies any vomiting overnight. Does have some diarrhea. Headache Leukocytosis but no bandemia. Procalcitonin mildly elevated but difficult to interpret in liver failure, same with lactate level. INR stable Continue antibiotics until paracentesis done. Review of Systems: denies fever/chills/vomiting/chest pain/cough/dyspnea. Otherwise see above. Constitutional Vitals: Vital Signs Temp Pulse Resp BP Pulse Ox 98.2 F 119 H 13 119/89 96 12/06/21 04:01 12/06/21 06:01 12/06/21 06:01 12/06/21 06:01 12/06/21 06:01 Period Temp Pulse Resp BP Sys/Hutton Pulse Ox Last 24 Hr 97.6 F-98.2 F 113-128 13-21 97-121/68-90 91-100 Intake and Output 12/05/21 12/06/21 12/06/21 21:59 05:59 13:59 Intake Total 1864.25 Output Total 275 Balance 1589.25 Weight 58.967 kg 68.719 kg Intake & Output: Intake & Output 12/05/21 12/06/21 12/06/21 21:59 05:59 13:59 Intake Total 1864.25 Output Total 275 Balance 1589.25 Weight 58.967 kg 68.719 kg Intake: IV 1644.25 Sodium Chloride 0.9% 1,000 ml @ 1000 Wide Open IV BOLUS ONE Rx#: [id number] Sodium Chloride 0.9% 500 ml @ 500 Wide Open IV BOLUS ONE Rx#: [id number] Ddavp 1 Mcg In Sodium Chloride 50.25 0.9% 50 ml @ 200 mls/hr IV Q6 DAVID Rx#:[id number] Potassium Chloride 40 Meq In 43 Dextrose 5% in Water 500 ml @ 130 mls/hr IV UD PRN Rx#: [id number] Vitamin B1 100 mg In Sodium 51 Chloride 0.9% 50 ml @ 50 mls/hr IV ONCE ONE Rx#:[id number] Oral 220 Output: Void Amount 75 Urine/Stool Mix 200 Other: Urine Appearance Clear Urine Color [place] Stool Size Small Small Stool Color Yellow Yellow Green Green Pale Stool Consistency Watery Watery # Bowel Movements 1 1 # of times incontinent of 1 0 Bowels Exam: General: Alert, Awake, No acute Distress Eyes/N/T: EOMI, scleral icterus Head/Neck: neck supple, CV: Tacky but regular, No murmurs, Pulm: Clear b/l, no wheezing/rhonchi/rales Abd: soft, mildly distended and mild tenderness to palpation generalized, +BS x4 Ext: no clubbing/cyanosis/edema Neuro: Alert, no focal deficits, moves all extremities, Skin: warm/dry OBJ DATA Labs CBC & Chem 7: 12/06/21 05:56 12/06/21 05:56 Labs: Abnormal Lab Results 12/06/21 12/06/21 12/06/21 06:05 06:05 02:15 WBC RBC Hgb Hct MCHC RDW Thomas # (Auto) Absolute Neutrophils Nucleated RBCs RBC Morphology Anisocytosis PT INR VBG Lactic Acid 5.0 H* POC Sodium 122 L Sodium POC Potassium 2.9 L* Potassium POC Chloride 80 L Chloride Anion Gap POC BUN 5 L POC Creatinine 1.4 H Osmolality Calcium POC WB Ioniz Calcium 0.78 L Total Bilirubin Direct Bilirubin AST Alkaline Phosphatase Ammonia 64 H Albumin Albumin/Globulin Ratio Procalcitonin Urine Occult Blood Urine Mucus Urine Yeast (Budding) Urine Osmolality Ethyl Alcohol 12/05/21 12/05/21 12/05/21 22:16 21:40 21:40 WBC RBC Hgb Hct MCHC RDW Thomas # (Auto) Absolute Neutrophils Nucleated RBCs RBC Morphology Anisocytosis PT INR VBG Lactic Acid 5.8 H* POC Sodium 120 L Sodium POC Potassium 3.2 L Potassium POC Chloride 78 L Chloride Anion Gap POC BUN 4 L POC Creatinine 1.6 H Osmolality 311 H Calcium POC WB Ioniz Calcium 0.89 L Total Bilirubin Direct Bilirubin 7.1 H AST Alkaline Phosphatase Ammonia Albumin Albumin/Globulin Ratio Procalcitonin Urine Occult Blood Urine Mucus Urine Yeast (Budding) Urine Osmolality Ethyl Alcohol 12/05/21 12/05/21 12/05/21 21:40 21:40 18:00 WBC RBC Hgb Hct MCHC RDW Thomas # (Auto) Absolute Neutrophils Nucleated RBCs RBC Morphology Anisocytosis PT INR VBG Lactic Acid POC Sodium Sodium POC Potassium Potassium POC Chloride Chloride Anion Gap POC BUN POC Creatinine Osmolality Calcium POC WB Ioniz Calcium Total Bilirubin Direct Bilirubin AST Alkaline Phosphatase Ammonia Albumin Albumin/Globulin Ratio Procalcitonin 0.53 H Urine Occult Blood Moderate A Urine Mucus Few A Urine Yeast (Budding) Few A Urine Osmolality 26 L Ethyl Alcohol 12/05/21 12/05/21 12/05/21 18:00 17:59 17:59 WBC RBC Hgb Hct MCHC RDW Thomas # (Auto) Absolute Neutrophils Nucleated RBCs 1 H RBC Morphology Abnormal A Anisocytosis 1+ A PT INR VBG Lactic Acid POC Sodium Sodium POC Potassium Potassium POC Chloride Chloride Anion Gap POC BUN POC Creatinine Osmolality Calcium POC WB Ioniz Calcium Total Bilirubin Direct Bilirubin AST Alkaline Phosphatase Ammonia 173 H Albumin Albumin/Globulin Ratio Procalcitonin Urine Occult Blood Urine Mucus Urine Yeast (Budding) Urine Osmolality Ethyl Alcohol 0.244 H 12/05/21 12/05/21 12/05/21 17:59 17:58 17:58 WBC 17.9 H RBC 3.33 L Hgb 11.1 L Hct 30.1 L MCHC 36.9 H RDW 14.7 H Thomas # (Auto) 1.41 H Absolute Neutrophils 12.58 H Nucleated RBCs RBC Morphology Anisocytosis PT 18.0 H INR 1.4 H VBG Lactic Acid POC Sodium Sodium 116 L* POC Potassium Potassium 3.2 L POC Chloride Chloride 73 L Anion Gap 19.0 H POC BUN POC Creatinine 1.6 H Osmolality Calcium 7.9 L POC WB Ioniz Calcium Total Bilirubin 10.8 H Direct Bilirubin AST 117 H Alkaline Phosphatase 755 H Ammonia Albumin 2.4 L Albumin/Globulin Ratio 0.7 L Procalcitonin Urine Occult Blood Urine Mucus Urine Yeast (Budding) Urine Osmolality Ethyl Alcohol Meds: Medications Albuterol/Ipratropium (Ipratropium/Albuterol 3 Ml Ampul.Neb) 3 ml NEB Q4HP PRN PRN Reason: Shortness Of Breath Chlordiazepoxide HCl (Chlordiazepoxide 25 Mg Capsule) 50 mg PO Q4HP PRN PRN Reason: Alcohol Withdrawal Last Admin: 12/06/21 05:41 Dose: 50 mg Documented by: Folic Acid (Folic Acid 1 Mg Tablet) 1 mg PO DAILY DAVID Potassium Chloride 40 meq/ (Dextrose) 520 mls @ 130 mls/hr IV UD PRN PRN Reason: Potassium < 3 Last Infusion: 12/06/21 03:40 Dose: 75 mls/hr Documented by: Magnesium Sulfate (Magnesium Sulfate) 2 gm in 50 mls @ 50 mls/hr IV UD PRN PRN Reason: Magnesium </= 1.6 Thiamine HCl 100 mg/ Sodium (Chloride) 51 mls @ 50 mls/hr IV DAILY DAVID Sodium Chloride (Sodium Chloride 3%) 500 mls @ 20 mls/hr IV ONCE DAVID Desmopressin Acetate 1 mcg/ (Sodium Chloride) 50.25 mls @ 200 mls/hr IV Q6 DAVID Stop: 12/06/21 18:16 Last Infusion: 12/06/21 01:57 Dose: Infused Documented by: Ceftriaxone Sodium 2 gm/ (Dextrose) 50 mls @ 100 mls/hr IV Q24H DAVID; Protocol Iron Carb/Multivit/Benson/Folic Acid (Multivit,Ther Iron,Ca,Fa & Min 1 Tablet) 1 tab PO DAILY DAVID Lactulose (Lactulose 20 Gm/30 Ml Oral.Josefina) 30 gm PO TID DAVID Last Admin: 12/06/21 01:10 Dose: 30 gm Documented by: Lorazepam (Lorazepam 2 Mg/Ml Vial) 0 mg IV Q4HP PRN; Protocol PRN Reason: Alcohol Withdrawal Metoclopramide HCl (Metoclopramide 10 Mg/2 Ml Vial) 10 mg IV Q6HP PRN PRN Reason: Nausea And Vomiting Ondansetron HCl (Ondansetron 4 Mg/2 Ml Vial) 4 mg IV Q4HP PRN PRN Reason: Nausea And Vomiting Last Admin: 12/06/21 02:21 Dose: 4 mg Documented by: Oxycodone HCl (Oxycodone Hcl 5 Mg Tablet) 5 mg PO Q4HP PRN; Protocol PRN Reason: Per Pain Protocol Pantoprazole Sodium (Pantoprazole 40 Mg Tablet) 40 mg PO QAMAC DAVID Potassium Chloride (Potassium Chloride 20 Meq Tablet) 40 meq PO UD PRN PRN Reason: Potssium is 3-3.5 Potassium Chloride (Potassium Chloride 20 Meq Tablet) 40 meq PO UD PRN PRN Reason: Potassium < 3 Prednisone (Prednisolone 15 Mg/5 Ml Oral Josefina) 40 mg PO DAILY [facility] Last Admin: 12/06/21 02:09 Dose: 40 mg Documented by: Sodium Chloride (0.9 % Sodium Chloride 10 Ml Syringe) 10 ml IV Q8 DAVID Last Admin: 12/06/21 06:42 Dose: Not Given Documented by: Sodium Chloride (0.9 % Sodium Chloride 10 Ml Syringe) 10 ml IV Q8 DAVID A/P Narrative A/P Narrative: A: *Hyponatremia: suspect intravascularly dry, but underlying cirrhosis *Acute alcoholic hepatitis: Diminished function score = 34 -INR 1.4 stable *Cirrhosis, alcoholic: w/mild coagulopathy & hyperbilirubinemia & elevated ammonia -MELD=27(20%mortality), Child-Mendez=class C (45%/35%) -LAcate and Procalcitonin not reliable in Liver dz *Alcohol abuse: High risk for withdrawal *Volume depletion: *Leukocytosis: No Bandemia, No source of infection found yet, versus reactive. cont abx until paracentesis *Hypokalemia: *Coagulopathy *Depression: *GERD: *Chronic pain: P: -3%(hold)/desmopressin, f/u sodium -paracentesis & liver u/s with doppler -Abx until peritoneal fluid analysis and Gram stain done -prednisolone 40mg x28 days, followed by 16-day taper -CIWA protocol, vitamins, prn benzo -MRCP on tuesday -f/u wbc, BC -lasix/aldactone prior to d/c -f/u closely with GI/automation qtp tester and needs EGD -Home medication reconciliation -ppx: Lovenox(after paracentesis)/home PPI Full code Time Spent With Patient Time: Total time spent is greater than 50% in coordination of care (as documented) at patient's floor/unit and/or counseling patient: QUALITY VTE Deep Vein Thrombosis/Pulmonary Embolism Present on Admission: No
[2021-12-06 08:13] LABS: INR 1.4 (0.9-1.1)
[2021-12-06 08:44] LABS: ALT/SGPT 32 U/L (<40); AST/SGOT 114 U/L (<32); Albumin 2.4 gm/dL (3.2-5.2); Albumin/Globulin Ratio 0.9 (1.0-2.3); Alkaline Phosphatase 681 U/L (39-117); Bilirubin,Direct 6.9 mg/dL (<0.3); Bilirubin,Total 9.6 mg/dL (0.1-1.0); Blood Urea Nitrogen 6 mg/dL (6-20); Calcium 7.5 mg/dL (8.6-10.4); Carbon Dioxide 20 mmol/L (22-30); Chloride 83 mmol/L (96-108); Globulin 2.8 gm/dL (2.2-3.7); Glomerular Filtration Rate 74; Glucose 110 mg/dL (70-105); Lactate Dehydrogenase 441 U/L (135-225); Phosphorous 2.6 mg/dL (2.5-4.5); Triglycerides 169 mg/dL (<150); Uric Acid 5.9 mg/dL (2.5-8.0)
[2021-12-06] MEDS: THIAMINE 100 MG in 0.9 % SODIUM CHLORIDE 50 ML IV SCH (09:00)
[2021-12-06] MEDS: oxyCODONE HCL 5 MG TABLET PO PRN (09:50)
[2021-12-06] MEDS: LACTULOSE 20 GM/30 ML ORAL.SOL PO SCH ×3 (10:00→20:11)
[2021-12-06] MEDS: METOPROLOL TARTRATE 25 MG TABLET PO SCH ×2 (10:30→20:12)
[2021-12-06] MEDS: PANTOPRAZOLE 40 MG TABLET PO SCH (10:30)
[2021-12-06] MEDS: MULTIVIT,THER IRON,CA,FA & MIN 1 TABLET PO SCH (10:30)
[2021-12-06] MEDS: FOLIC ACID 1 MG TABLET PO SCH (10:30)
[2021-12-06 12:06] LABS: Anisocytosis 1+ (None Seen); Basophilic Stippling RARE (None Seen); Lymphocytes % 5 % (15-49); Monocytes % (Manual) 1 % (1-12); Platelet Estimate NORMAL (Normal); Polychromasia FEW (None Seen); RBC Morphology ABNORMAL (Normal); Segmented Neutrophils % 94 % (38-78)
[2021-12-06 12:39] LABS: POC Blood Urea Nitrogen 4 mg/dL (6-20); POC CO2 25 mmol/L (22-30); POC Calcium, Ionized 0.95 mmEq/L (1.16-1.32); POC Chloride 83 mEq/L (96-108); POC Creatinine 1.1 mg/dL (0.6-1.2); POC Glucose, Random 171 mg/dL (70-105); POC Hematocrit 32 % (36-48); POC Potassium 3.8 mEql/L (3.3-5.1); POC Sodium 122 mEq/L (133-145)
[2021-12-06] MEDS ORDERED: SODIUM CHLORIDE 3 % 500 ML IV SCH (13:00)
--- NOTE | 2021-12-06 13:59 | Ultrasound Report ---
Ultrasound-guided paracentesis CLINICAL INFORMATION: Moderate ascites likely related cirrhosis Technique: The procedure and risks including possibility of bleeding, infection, bowel and parenchymal organ perforation were explained the patient. He understood and wished to proceed. Multiple Coil Winder scanning demonstrated Ascites in the right lower quadrant which was free of bowel. The skin was marked, prepped and locally anesthetized 1% lidocaine to the level of the parietal peritoneum using a 25-gauge needle. A 18-gauge ReferBrighteh needle was then placed under sonographic guidance into the ascites and 1.8 mm of simple appearing ascites was aspirated and sent for requested studies. The needle was removed. Postprocedure scanning shows minimal residual ascites. No apparent complication - patient tolerated procedure well. IMPRESSION: Successful ultrasound-guided paracentesis yielding 1.8 mm of simple appearing transudative ascites. Fluid was sent to the laboratory for requested studies. Postprocedure scanning shows only minimal residual fluid. Patient tolerated procedure well without apparent complication Interpreted and Authenticated by: Adam Meehan 12/06/21
[2021-12-06] MEDS ORDERED: LORazepam 1 MG TABLET PO PRN (14:07)
[2021-12-06] MEDS ORDERED: NAPROXEN 250 MG TABLET PO PRN (14:09)
[2021-12-06 14:38] LABS: LDH,Peritoneal Fluid 43 U/L; Total Protein,Peritoneal Fluid 0.4 gm/dL
--- NOTE | 2021-12-06 15:32 | Ultrasound Report ---
CLINICAL INFORMATION: Cirrhosis COMPARISON: None. FINDINGS: The liver is markedly enlarged with a vertical measured 21 cm. It is severely hyperechoic compatible with fatty change. Severe hyperechogenicity precludes evaluation of discrete focal lesions. Moderate ascites noted IMPRESSION: Moderate hepatomegaly with marked fatty change in the liver. No definite lesions in the peripheral liver although sensitivity is quite limited. Suggest: abdominal MRI with gadolinium for better liver evaluation including excluding metastases Interpreted and Authenticated by: Adam Meehan 12/06/21
[2021-12-06] MEDS: cefTRIAXone 2 GM in DEXTROSE 5% IN WATER 50 ML IV SCH (16:00)
[2021-12-06 16:14] LABS: POC Blood Urea Nitrogen 5 mg/dL (6-20); POC CO2 27 mmol/L (22-30); POC Chloride 83 mEq/L (96-108); POC Glucose, Random 141 mg/dL (70-105); POC Hematocrit 33 % (36-48); POC Potassium 3.8 mEql/L (3.3-5.1); POC Sodium 123 mEq/L (133-145)
[2021-12-06] MEDS ORDERED: SODIUM CHLORIDE 3 % 500 ML IV ONE (17:15)
[2021-12-06] MEDS: traZODone HCL 50 MG TABLET PO SCH (20:27)
[2021-12-06 20:47] LABS: Mesothelial,Peritoneal Fluid 36 %; Monocyte,Peritoneal Fluid 21 %; Neutrophils,Peritoneal Fluid 1 %; Nucleated Cel,Peritoneal Fluid 63 /cumm; RBC,Peritoneal Fluid <50,000 /cumm
[2021-12-06 22:35] LABS: POC Blood Urea Nitrogen 5 mg/dL (6-20); POC CO2 29 mmol/L (22-30); POC Calcium, Ionized 0.97 mmEq/L (1.16-1.32); POC Chloride 82 mEq/L (96-108); POC Creatinine 0.9 mg/dL (0.6-1.2); POC Glucose, Random 135 mg/dL (70-105); POC Hematocrit 34 % (36-48); POC Potassium 3.4 mEql/L (3.3-5.1); POC Sodium 125 mEq/L (133-145)
[2021-12-07 00:29] LABS: POC Blood Urea Nitrogen 6 mg/dL (6-20); POC CO2 29 mmol/L (22-30); POC Calcium, Ionized 0.91 mmEq/L (1.16-1.32); POC Chloride 83 mEq/L (96-108); POC Creatinine 0.9 mg/dL (0.6-1.2); POC Glucose, Random 145 mg/dL (70-105); POC Hematocrit 35 % (36-48); POC Potassium 3.8 mEql/L (3.3-5.1); POC Sodium 125 mEq/L (133-145)
[2021-12-07] MEDS: 0.9 % SODIUM CHLORIDE 10 ML SYRINGE IV SCH ×5 (04:24→20:19)
[2021-12-07 06:56] LABS: Basophils # (Auto) 0.02 K/mcL (0.00-0.30); Basophils % (Auto) 0.1 % (0.0-2.0); Eosinophils # (Auto) 0 K/mcL (0.00-0.70); Eosinophils % (Auto) 0 % (0.0-7.0); Hematocrit 28.2 % (34.1-44.9); Hemoglobin 10.2 g/dL (11.2-15.7); Lymphocytes # (Auto) 1.71 K/mcL (1.50-4.80); Lymphocytes % (Auto) 9.3 % (15.5-49.0); Mean Cell Volume 95.9 fL (80.0-100.0); Mean Corpuscular HGB Conc 36.2 g/dL (31.0-36.0); Mean Platelet Volume 9.8 fL (7.4-10.4); Monocytes # (Auto) 1.53 K/mcL (0.10-0.90); Monocytes % (Auto) 8.3 % (1.0-12.0); Neutrophils % (Auto) 82.3 % (38.0-78.0); Platelet Count 179 K/mcL (140-440); RBC 2.94 M/mcL (3.59-5.38); Red Cell Distribution Width 15.9 % (11.5-14.5); WBC 18.4 K/mcL (4.5-11.0)
[2021-12-07 07:09] LABS: INR 1.7 (0.9-1.1); Prothrombin Time 20.3 sec (11.9-14.5)
[2021-12-07 07:18] LABS: ALT/SGPT 29 U/L (<40); AST/SGOT 99 U/L (<32); Albumin 2.5 gm/dL (3.2-5.2); Albumin/Globulin Ratio 0.8 (1.0-2.3); Alkaline Phosphatase 652 U/L (39-117); Bilirubin,Direct 6.3 mg/dL (<0.3); Bilirubin,Total 9.9 mg/dL (0.1-1.0); Blood Urea Nitrogen 6 mg/dL (6-20); Calcium 7.7 mg/dL (8.6-10.4); Carbon Dioxide 26 mmol/L (22-30); Chloride 84 mmol/L (96-108); Globulin 3.2 gm/dL (2.2-3.7); Glomerular Filtration Rate 100; Glucose 128 mg/dL (70-105); Lactate Dehydrogenase 494 U/L (135-225); Phosphorous 1.6 mg/dL (2.5-4.5); Triglycerides 159 mg/dL (<150); Uric Acid 5.3 mg/dL (2.5-8.0)
--- NOTE | 2021-12-07 07:42 | Internal Med Progress Note ---
SUBJECTIVE Subjective Patient information: Note initiated : 12/07/21 at 7:37 am Service Date, if different from initiated Date: [] Patient: Berkley Elizalde 51 y/o F admitted on 12/05/21 for cold flu. Chief Complaint: [] Interval history: History of present illness: Ms. Elizalde is a 51 year old F To the hospital with generalized malaise and weakness and abdominal bloating over the past couple weeks. She had some headaches nausea and loose stools. Denies hematemesis or melena. No vomiting. Denies fever chills. No cough shortness of breath or chest pain. Per family has noticed her distended abdomen and more significantly her skin color change in eye color change to yellow. She is a chronic alcohol user and admitted to 3 hard drinks per day to the PA in the ED but family says she drinks more than that. Family also reported that she does have withdrawal symptoms when she does not drink. She does not carry a diagnosis of cirrhosis. In the ED her bilirubin was 10. CT abdomen pelvis did not show any biliary dilation but did show fatty infiltration and nodularity, moderate ascites. INR was 1.4 Sodium was 116 Leukocytosis. Alcohol level 244 Ammonia 173 and an elevated AST 2/6 No overnight event or new complaints. Patient denies any vomiting overnight. Does have some diarrhea. Headache Leukocytosis but no bandemia. Procalcitonin mildly elevated but difficult to interpret in liver failure, same with lactate level. INR stable Continue antibiotics until paracentesis done. 12/07 Abdomen feels better after the paracentesis. Fluid analysis indicative of portal hypertension Still working on hyponatremia. Increased WBC likely secondary to steroids. Review of Systems: denies fever/chills/vomiting/chest pain/cough/dyspnea. Otherwise see above. Constitutional Vitals: Vital Signs Temp Pulse Resp BP Pulse Ox 97.6 F 122 H 11 L 95/69 97 12/07/21 04:34 12/06/21 08:01 12/07/21 06:03 12/07/21 06:03 12/07/21 06:03 Period Temp Pulse Resp BP Sys/Hutton Pulse Ox Last 24 Hr 97.3 F-98.9 F 122 6-30 94-114/63-96 92-98 Intake and Output 12/06/21 12/07/21 12/07/21 21:59 05:59 13:59 Intake Total 50 44 Output Total 250 100 Balance -200 -56 Weight 72.121 kg Intake & Output: Intake & Output 12/06/21 12/07/21 12/07/21 21:59 05:59 13:59 Intake Total 50 44 Output Total 250 100 Balance -200 -56 Weight 72.121 kg Intake: IV 50 44 Sodium Chloride 3% 500 ml @ 20 44 mls/hr IV ONCE ONE Rx#: [id number] Rocephin 2 gm In Dextrose 5% in 50 Water 50 ml @ 100 mls/hr IV Q24H [facility] Rx#:[id number] Output: Urine/Stool Mix 250 100 Other: Meal Dinner Percent of Meal Consumed 25% Feeding Ability Independent Stool Color Brown Stool Consistency Liquid # Bowel Movements 1 # of times incontinent of 0 Bowels Exam: General: Alert, Awake, No acute Distress Eyes/N/T: EOMI, scleral icterus Head/Neck: neck supple, CV: Tacky but regular, No murmurs, Pulm: Clear b/l, no wheezing/rhonchi/rales Abd: soft, less distended, +BS x4 Ext: no clubbing/cyanosis/edema Neuro: Alert, no focal deficits, moves all extremities, Skin: warm/dry OBJ DATA Labs CBC & Chem 7: 12/07/21 05:34 12/07/21 05:33 Labs: Abnormal Lab Results 12/07/21 12/07/21 12/07/21 05:34 05:34 05:33 WBC 18.4 H RBC 2.94 L Hgb 10.2 L Hct 28.2 L POC Hct MCH 34.7 H MCHC 36.2 H RDW 15.9 H Neut % (Auto) 82.3 H Lymph % (Auto) 9.3 L Woods # (Auto) 1.53 H Seg Neutrophils % Lymphocytes % Absolute Neutrophils 15.16 H Nucleated RBCs RBC Morphology Polychromasia Basophilic Stippling Anisocytosis PT 20.3 H INR 1.7 H VBG Lactic Acid POC Sodium Sodium 122 L POC Potassium Potassium POC Chloride Chloride 84 L Carbon Dioxide Anion Gap POC BUN POC Creatinine Glucose 128 H POC Glucose Osmolality Calcium 7.7 L POC WB Ioniz Calcium Phosphorus 1.6 L Total Bilirubin 9.9 H Direct Bilirubin 6.3 H GGT 654 H AST 99 H Alkaline Phosphatase 652 H Ammonia Lactate Dehydrogenase 494 H Total Protein 5.7 L Albumin 2.5 L Albumin/Globulin Ratio 0.8 L Triglycerides 159 H Procalcitonin Urine Occult Blood Urine Mucus Urine Yeast (Budding) Urine Osmolality Ethyl Alcohol 12/07/21 12/06/21 12/06/21 00:16 22:23 16:05 WBC RBC Hgb Hct POC Hct 35 L 34 L 33 L MCH MCHC RDW Neut % (Auto) Lymph % (Auto) Woods # (Auto) Seg Neutrophils % Lymphocytes % Absolute Neutrophils Nucleated RBCs RBC Morphology Polychromasia Basophilic Stippling Anisocytosis PT INR VBG Lactic Acid POC Sodium 125 L 125 L 123 L Sodium POC Potassium Potassium POC Chloride 83 L 82 L 83 L Chloride Carbon Dioxide Anion Gap POC BUN 5 L 5 L POC Creatinine Glucose POC Glucose 145 H 135 H 141 H Osmolality Calcium POC WB Ioniz Calcium 0.91 L 0.97 L 0.90 L Phosphorus Total Bilirubin Direct Bilirubin GGT AST Alkaline Phosphatase Ammonia Lactate Dehydrogenase Total Protein Albumin Albumin/Globulin Ratio Triglycerides Procalcitonin Urine Occult Blood Urine Mucus Urine Yeast (Budding) Urine Osmolality Ethyl Alcohol 12/06/21 12/06/21 12/06/21 12:18 06:05 06:05 WBC RBC Hgb Hct POC Hct 32 L MCH MCHC RDW Neut % (Auto) Lymph % (Auto) Woods # (Auto) Seg Neutrophils % Lymphocytes % Absolute Neutrophils Nucleated RBCs RBC Morphology Polychromasia Basophilic Stippling Anisocytosis PT INR VBG Lactic Acid 5.0 H* POC Sodium 122 L Sodium POC Potassium Potassium POC Chloride 83 L Chloride Carbon Dioxide Anion Gap POC BUN 4 L POC Creatinine Glucose POC Glucose 171 H Osmolality Calcium POC WB Ioniz Calcium 0.95 L Phosphorus Total Bilirubin Direct Bilirubin GGT AST Alkaline Phosphatase Ammonia Lactate Dehydrogenase Total Protein Albumin Albumin/Globulin Ratio Triglycerides Procalcitonin 0.43 H Urine Occult Blood Urine Mucus Urine Yeast (Budding) Urine Osmolality Ethyl Alcohol 12/06/21 12/06/21 12/06/21 06:05 06:05 05:56 WBC RBC Hgb Hct POC Hct MCH MCHC RDW Neut % (Auto) Lymph % (Auto) Woods # (Auto) Seg Neutrophils % Lymphocytes % Absolute Neutrophils Nucleated RBCs RBC Morphology Polychromasia Basophilic Stippling Anisocytosis PT 18.0 H INR 1.4 H VBG Lactic Acid POC Sodium Sodium 120 L POC Potassium Potassium POC Chloride Chloride 83 L Carbon Dioxide 20 L Anion Gap 17.0 H POC BUN POC Creatinine Glucose 110 H POC Glucose Osmolality Calcium 7.5 L POC WB Ioniz Calcium Phosphorus Total Bilirubin 9.6 H Direct Bilirubin 6.9 H GGT 681 H AST 114 H Alkaline Phosphatase 681 H Ammonia 64 H Lactate Dehydrogenase 441 H Total Protein 5.2 L Albumin 2.4 L Albumin/Globulin Ratio 0.9 L Triglycerides 169 H Procalcitonin Urine Occult Blood Urine Mucus Urine Yeast (Budding) Urine Osmolality Ethyl Alcohol 12/06/21 12/06/21 12/05/21 05:56 02:15 22:16 WBC 15.5 H RBC 2.98 L Hgb 10.1 L Hct 28.0 L POC Hct MCH MCHC 36.1 H RDW 15.4 H Neut % (Auto) Lymph % (Auto) Woods # (Auto) Seg Neutrophils % 94 H Lymphocytes % 5 L Absolute Neutrophils Nucleated RBCs RBC Morphology Abnormal A Polychromasia Few A Basophilic Stippling Rare A Anisocytosis 1+ A PT INR VBG Lactic Acid 5.8 H* POC Sodium 122 L Sodium POC Potassium 2.9 L* Potassium POC Chloride 80 L Chloride Carbon Dioxide Anion Gap POC BUN 5 L POC Creatinine 1.4 H Glucose POC Glucose Osmolality Calcium POC WB Ioniz Calcium 0.78 L Phosphorus Total Bilirubin Direct Bilirubin GGT AST Alkaline Phosphatase Ammonia Lactate Dehydrogenase Total Protein Albumin Albumin/Globulin Ratio Triglycerides Procalcitonin Urine Occult Blood Urine Mucus Urine Yeast (Budding) Urine Osmolality Ethyl Alcohol 12/05/21 12/05/21 12/05/21 21:40 21:40 21:40 WBC RBC Hgb Hct POC Hct MCH MCHC RDW Neut % (Auto) Lymph % (Auto) Woods # (Auto) Seg Neutrophils % Lymphocytes % Absolute Neutrophils Nucleated RBCs RBC Morphology Polychromasia Basophilic Stippling Anisocytosis PT INR VBG Lactic Acid POC Sodium 120 L Sodium POC Potassium 3.2 L Potassium POC Chloride 78 L Chloride Carbon Dioxide Anion Gap POC BUN 4 L POC Creatinine 1.6 H Glucose POC Glucose Osmolality 311 H Calcium POC WB Ioniz Calcium 0.89 L Phosphorus Total Bilirubin Direct Bilirubin GGT AST Alkaline Phosphatase Ammonia Lactate Dehydrogenase Total Protein Albumin Albumin/Globulin Ratio Triglycerides Procalcitonin Urine Occult Blood Moderate A Urine Mucus Few A Urine Yeast (Budding) Few A Urine Osmolality 26 L Ethyl Alcohol 12/05/21 12/05/21 12/05/21 18:00 18:00 17:59 WBC RBC Hgb Hct POC Hct MCH MCHC RDW Neut % (Auto) Lymph % (Auto) Woods # (Auto) Seg Neutrophils % Lymphocytes % Absolute Neutrophils Nucleated RBCs 1 H RBC Morphology Abnormal A Polychromasia Basophilic Stippling Anisocytosis 1+ A PT INR VBG Lactic Acid POC Sodium Sodium POC Potassium Potassium POC Chloride Chloride Carbon Dioxide Anion Gap POC BUN POC Creatinine Glucose POC Glucose Osmolality Calcium POC WB Ioniz Calcium Phosphorus Total Bilirubin Direct Bilirubin GGT AST Alkaline Phosphatase Ammonia Lactate Dehydrogenase Total Protein Albumin Albumin/Globulin Ratio Triglycerides Procalcitonin 0.53 H Urine Occult Blood Urine Mucus Urine Yeast (Budding) Urine Osmolality Ethyl Alcohol 0.244 H 12/05/21 12/05/21 12/05/21 17:59 17:59 17:58 WBC RBC Hgb Hct POC Hct MCH MCHC RDW Neut % (Auto) Lymph % (Auto) Woods # (Auto) Seg Neutrophils % Lymphocytes % Absolute Neutrophils Nucleated RBCs RBC Morphology Polychromasia Basophilic Stippling Anisocytosis PT 18.0 H INR 1.4 H VBG Lactic Acid POC Sodium Sodium 116 L* POC Potassium Potassium 3.2 L POC Chloride Chloride 73 L Carbon Dioxide Anion Gap 19.0 H POC BUN POC Creatinine 1.6 H Glucose POC Glucose Osmolality Calcium 7.9 L POC WB Ioniz Calcium Phosphorus Total Bilirubin 10.8 H Direct Bilirubin GGT AST 117 H Alkaline Phosphatase 755 H Ammonia 173 H Lactate Dehydrogenase Total Protein Albumin 2.4 L Albumin/Globulin Ratio 0.7 L Triglycerides Procalcitonin Urine Occult Blood Urine Mucus Urine Yeast (Budding) Urine Osmolality Ethyl Alcohol 12/05/21 12/05/21 17:58 10:36 WBC 17.9 H RBC 3.33 L Hgb 11.1 L Hct 30.1 L POC Hct MCH MCHC 36.9 H RDW 14.7 H Neut % (Auto) Lymph % (Auto) Woods # (Auto) 1.41 H Seg Neutrophils % Lymphocytes % Absolute Neutrophils 12.58 H Nucleated RBCs RBC Morphology Polychromasia Basophilic Stippling Anisocytosis PT INR VBG Lactic Acid POC Sodium Sodium POC Potassium Potassium POC Chloride Chloride Carbon Dioxide Anion Gap POC BUN POC Creatinine Glucose POC Glucose Osmolality Calcium POC WB Ioniz Calcium Phosphorus Total Bilirubin Direct Bilirubin 7.1 H GGT AST Alkaline Phosphatase Ammonia Lactate Dehydrogenase Total Protein Albumin Albumin/Globulin Ratio Triglycerides Procalcitonin Urine Occult Blood Urine Mucus Urine Yeast (Budding) Urine Osmolality Ethyl Alcohol Meds: Medications Albuterol/Ipratropium (Ipratropium/Albuterol 3 Ml Ampul.Neb) 3 ml NEB Q4HP PRN PRN Reason: Shortness Of Breath Chlordiazepoxide HCl (Chlordiazepoxide 25 Mg Capsule) 50 mg PO Q4HP PRN PRN Reason: Alcohol Withdrawal Last Admin: 12/06/21 10:29 Dose: 50 mg Documented by: Duloxetine HCl (Duloxetine 30 Mg Capsule) 60 mg PO DAILY [facility] Folic Acid (Folic Acid 1 Mg Tablet) 1 mg PO DAILY [facility] Last Admin: 12/06/21 10:30 Dose: 1 mg Documented by: Potassium Chloride 40 meq/ (Dextrose) 520 mls @ 130 mls/hr IV UD PRN PRN Reason: Potassium < 3 Last Infusion: 12/06/21 10:20 Dose: Infused Documented by: Magnesium Sulfate (Magnesium Sulfate) 2 gm in 50 mls @ 50 mls/hr IV UD PRN PRN Reason: Magnesium </= 1.6 Thiamine HCl 100 mg/ Sodium (Chloride) 51 mls @ 50 mls/hr IV DAILY [facility] Last Infusion: 12/06/21 10:05 Dose: Infused Documented by: Ceftriaxone Sodium 2 gm/ (Dextrose) 50 mls @ 100 mls/hr IV Q24H [facility]; Protocol Last Infusion: 12/06/21 16:30 Dose: Infused Documented by: Sodium Chloride (Sodium Chloride 3%) 500 mls @ 20 mls/hr IV ONCE ONE Stop: 12/07/21 18:14 Last Infusion: 12/06/21 22:38 Dose: 0 mls/hr Documented by: Iron Carb/Multivit/[place]/Folic Acid (Multivit,Ther Iron,Ca,Fa & Min 1 Tablet) 1 tab PO DAILY [facility] Last Admin: 12/06/21 10:30 Dose: 1 tab Documented by: Lactulose (Lactulose 20 Gm/30 Ml Oral.Josefina) 20 gm PO TID [facility] Last Admin: 12/06/21 20:11 Dose: Not Given Documented by: Lorazepam (Lorazepam 2 Mg/Ml Vial) 0 mg IV Q4HP PRN; Protocol PRN Reason: Alcohol Withdrawal Lorazepam (Lorazepam 1 Mg Tablet) 1 mg PO BIDP PRN PRN Reason: Anxiety Metoclopramide HCl (Metoclopramide 10 Mg/2 Ml Vial) 10 mg IV Q6HP PRN PRN Reason: Nausea And Vomiting Metoprolol Tartrate (Metoprolol Tartrate 25 Mg Tablet) 25 mg PO BID [facility] Last Admin: 12/06/21 20:12 Dose: Not Given Documented by: Naproxen (Naproxen 250 Mg Tablet) 250 mg PO BIDP PRN PRN Reason: Pain Ondansetron HCl (Ondansetron 4 Mg/2 Ml Vial) 4 mg IV Q4HP PRN PRN Reason: Nausea And Vomiting Last Admin: 12/06/21 02:21 Dose: 4 mg Documented by: Oxycodone HCl (Oxycodone Hcl 5 Mg Tablet) 5 mg PO Q4HP PRN; Protocol PRN Reason: Per Pain Protocol Last Admin: 12/06/21 09:50 Dose: 5 mg Documented by: Pantoprazole Sodium (Pantoprazole 40 Mg Tablet) 40 mg PO QAMAC [facility] Last Admin: 12/06/21 10:30 Dose: 40 mg Documented by: Pneumococcal Polyvalent Vaccine (Pneumococcal 23-Paloma P-Sac Vac 0.5 Ml Syringe) 0.5 ml IM .ONCE ONE Stop: 12/07/21 10:01 Potassium Chloride (Potassium Chloride 20 Meq Tablet) 40 meq PO UD PRN PRN Reason: Potssium is 3-3.5 Last Admin: 12/06/21 22:40 Dose: 40 meq Documented by: Potassium Chloride (Potassium Chloride 20 Meq Tablet) 40 meq PO UD PRN PRN Reason: Potassium < 3 Prednisone (Prednisolone 15 Mg/5 Ml Oral Josefina) 40 mg PO DAILY [facility] Last Admin: 12/06/21 09:00 Dose: 40 mg Documented by: Sodium Chloride (0.9 % Sodium Chloride 10 Ml Syringe) 10 ml IV Q8 [facility] Last Admin: 12/07/21 04:24 Dose: Not Given Documented by: Sodium Chloride (0.9 % Sodium Chloride 10 Ml Syringe) 10 ml IV Q8 [facility] Last Admin: 12/07/21 04:24 Dose: Not Given Documented by: Trazodone HCl (Trazodone Hcl 50 Mg Tablet) 50 mg PO QHS [facility] Last Admin: 12/06/21 20:27 Dose: 50 mg Documented by: A/P Narrative A/P Narrative: A: *Hyponatremia: suspect intravascularly dry, but underlying cirrhosis *Acute alcoholic hepatitis: Diminished function score = 34 - *Cirrhosis, alcoholic: w/mild coagulopathy & hyperbilirubinemia & elevated ammonia & Ascites -MELD=27(20%mortality), Child-Mendez=class C (45%/35%) -LAcate and Procalcitonin not reliable in Liver dz -paracentesis (2/6) of 1.8L, SAAG consistent with portal HTN. *Alcohol abuse: High risk for withdrawal *Volume depletion: resolved *Leukocytosis: No Bandemia, No source of infection found. 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
[2021-12-07] MEDS: cefTRIAXone 2 GM in DEXTROSE 5% IN WATER 50 ML IV SCH (09:00)
[2021-12-07] MEDS: THIAMINE 100 MG in 0.9 % SODIUM CHLORIDE 50 ML IV SCH (09:00)
[2021-12-07] MEDS: NEUTRA PHOS 1 PACKET PO SCH ×2 (09:33→20:16)
[2021-12-07] MEDS: ENOXAPARIN 40 MG/0.4 ML SYRINGE SQ SCH (09:33)
[2021-12-07] MEDS: prednisoLONE 15 MG/5 ML ORAL SOL PO SCH (09:33)
[2021-12-07] MEDS: FOLIC ACID 1 MG TABLET PO SCH (09:34)
[2021-12-07] MEDS: LACTULOSE 20 GM/30 ML ORAL.SOL PO SCH ×2 (09:34→20:17)
[2021-12-07] MEDS: MULTIVIT,THER IRON,CA,FA & MIN 1 TABLET PO SCH (09:34)
[2021-12-07] MEDS: PANTOPRAZOLE 40 MG TABLET PO SCH (09:39)
[2021-12-07] MEDS: DULoxetine 30 MG CAPSULE PO SCH (09:42)
[2021-12-07] MEDS: METOPROLOL TARTRATE 25 MG TABLET PO SCH (09:47)
[2021-12-07] MEDS ORDERED: PNEUMOCOCCAL 23-VAL P-SAC VAC 0.5 ML SYRINGE IM ONE (10:00)
--- NOTE | 2021-12-07 12:04 | EKG ---
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 Measurements Intervals [place] Rate: 116 P: 31 NM: 127 QRS: -10 QRSD: 98 T: -5 QT: 377 QTc: 524 Interpretive Statements Sinus tachycardia Delayed R wave progression Borderline T abnormalities, anterior leads Prolonged QT interval Electronically Signed On 12-07-2021 12:03:50 PST by Bindu Jessica D.O. /[id number]/[id number]
--- NOTE | 2021-12-07 12:32 | Internal Med Progress Note ---
SUBJECTIVE Subjective Patient information: Note initiated : 12/08/21 at 12:27 pm Service Date, if different from initiated Date: [] Patient: Berkley Elizalde a 51 y/o F admitted on 12/05/21 for cold flu. Chief Complaint: [] Interval history: History of present illness: Ms. Elizalde is a 51 year old F To the hospital with generalized malaise and weakness and abdominal bloating over the past couple weeks. She had some headaches nausea and loose stools. Denies hematemesis or melena. No vomiting. Denies fever chills. No cough shortness of breath or chest pain. Per family has noticed her distended abdomen and more significantly her skin color change in eye color change to yellow. She is a chronic alcohol user and admitted to 3 hard drinks per day to the PA in the ED but family says she drinks more than that. Family also reported that she does have withdrawal symptoms when she does not drink. She does not carry a diagnosis of cirrhosis. In the ED her bilirubin was 10. CT abdomen pelvis did not show any biliary dilation but did show fatty infiltration and nodularity, moderate ascites. INR was 1.4 Sodium was 116 Leukocytosis. Alcohol level 244 Ammonia 173 and an elevated AST 2/ No overnight event or new complaints. Patient denies any vomiting overnight. Does have some diarrhea. Headache Leukocytosis but no bandemia. Procalcitonin mildly elevated but difficult to interpret in liver failure, same with lactate level. INR stable Continue antibiotics until paracentesis done. 12/07 Abdomen feels better after the paracentesis. Fluid analysis indicative of portal hypertension Still working on hyponatremia. Increased WBC likely secondary to steroids. 12/08 Alert and oriented, sodium level about the same, INR and bilirubin also about the same. Awaiting MRI abdomen report. Physical exam Head: Atraumatic, normal inspection. Eyes: scleral icterus Neck: full ROM Respiratory: no respiratory distress. Cardiovascular: normal rate and rhythm, S1, S2. GI/Abdominal: soft, nontender, no guarding. Extremities: full range of motion, nontender. Neurological: CN II-XII intact, intact motor, intact sensation. Psychiatric: normal mood. Skin: warm, normal color Constitutional Vitals: Vital Signs Temp Pulse Resp BP Pulse Ox 97 F 122 H 14 96/71 95 12/07/21 08:01 12/06/21 08:01 12/07/21 10:11 12/07/21 10:01 12/07/21 10:11 Period Temp Pulse Resp BP Sys/Hutton Pulse Ox Last 24 Hr 97 F-98.9 F 6-30 93-109/63-81 92-98 Intake and Output 12/06/21 12/07/21 12/07/21 21:59 05:59 13:59 Intake Total 50 44 101 Output Total 250 100 Balance -200 -56 101 Weight 72.121 kg Intake & Output: Intake & Output 12/06/21 12/07/21 12/07/21 21:59 05:59 13:59 Intake Total 50 44 101 Output Total 250 100 Balance -200 -56 101 Weight 72.121 kg Intake: IV 50 44 101 Sodium Chloride 3% 500 ml @ 20 44 0 mls/hr IV ONCE ONE Rx#: [id number] Vitamin B1 100 mg In Sodium 51 Chloride 0.9% 50 ml @ 50 mls/hr IV DAILY [facility] Rx#:[id number] Rocephin 2 gm In Dextrose 5% in 50 50 Water 50 ml @ 100 mls/hr IV Q24H [facility] Rx#:[id number] Output: Urine/Stool Mix 250 100 Other: Meal Dinner Percent of Meal Consumed 25% Feeding Ability Independent Stool Color Brown Stool Consistency Liquid # Bowel Movements 1 # of times incontinent of 0 Bowels OBJ DATA Labs CBC & Chem 7: 12/08/21 04:04 12/08/21 07:54 Labs: Abnormal Lab Results 12/07/21 12/07/21 12/07/21 10:56 05:34 05:34 WBC 18.4 H RBC 2.94 L Hgb 10.2 L Hct 28.2 L POC Hct MCH 34.7 H MCHC 36.2 H RDW 15.9 H Neut % (Auto) 82.3 H Lymph % (Auto) 9.3 L [place] # (Auto) 1.53 H Seg Neutrophils % Lymphocytes % Absolute Neutrophils 15.16 H Nucleated RBCs RBC Morphology Polychromasia Basophilic Stippling Anisocytosis PT 20.3 H INR 1.7 H VBG Lactic Acid POC Sodium Sodium 126 L POC Potassium Potassium POC Chloride Chloride Carbon Dioxide Anion Gap POC BUN POC Creatinine Glucose POC Glucose Osmolality Calcium POC WB Ioniz Calcium Phosphorus Total Bilirubin Direct Bilirubin GGT AST Alkaline Phosphatase Ammonia Lactate Dehydrogenase Total Protein Albumin Albumin/Globulin Ratio Triglycerides Procalcitonin Urine Occult Blood Urine Mucus Urine Yeast (Budding) Urine Osmolality Ethyl Alcohol 12/07/21 12/07/21 12/06/21 05:33 00:16 22:23 WBC RBC Hgb Hct POC Hct 35 L 34 L MCH MCHC RDW Neut % (Auto) Lymph % (Auto) [place] # (Auto) Seg Neutrophils % Lymphocytes % Absolute Neutrophils Nucleated RBCs RBC Morphology Polychromasia Basophilic Stippling Anisocytosis PT INR VBG Lactic Acid POC Sodium 125 L 125 L Sodium 122 L POC Potassium Potassium POC Chloride 83 L 82 L Chloride 84 L Carbon Dioxide Anion Gap POC BUN 5 L POC Creatinine Glucose 128 H POC Glucose 145 H 135 H Osmolality Calcium 7.7 L POC WB Ioniz Calcium 0.91 L 0.97 L Phosphorus 1.6 L Total Bilirubin 9.9 H Direct Bilirubin 6.3 H GGT 654 H AST 99 H Alkaline Phosphatase 652 H Ammonia Lactate Dehydrogenase 494 H Total Protein 5.7 L Albumin 2.5 L Albumin/Globulin Ratio 0.8 L Triglycerides 159 H Procalcitonin Urine Occult Blood Urine Mucus Urine Yeast (Budding) Urine Osmolality Ethyl Alcohol 12/06/21 12/06/21 12/06/21 16:05 12:18 06:05 WBC RBC Hgb Hct POC Hct 33 L 32 L MCH MCHC RDW Neut % (Auto) Lymph % (Auto) [place] # (Auto) Seg Neutrophils % Lymphocytes % Absolute Neutrophils Nucleated RBCs RBC Morphology Polychromasia Basophilic Stippling Anisocytosis PT INR VBG Lactic Acid 5.0 H* POC Sodium 123 L 122 L Sodium POC Potassium Potassium POC Chloride 83 L 83 L Chloride Carbon Dioxide Anion Gap POC BUN 5 L 4 L POC Creatinine Glucose POC Glucose 141 H 171 H Osmolality Calcium POC WB Ioniz Calcium 0.90 L 0.95 L Phosphorus Total Bilirubin Direct Bilirubin GGT AST Alkaline Phosphatase Ammonia Lactate Dehydrogenase Total Protein Albumin Albumin/Globulin Ratio Triglycerides Procalcitonin Urine Occult Blood Urine Mucus Urine Yeast (Budding) Urine Osmolality Ethyl Alcohol 12/06/21 12/06/21 12/06/21 06:05 06:05 06:05 WBC RBC Hgb Hct POC Hct MCH MCHC RDW Neut % (Auto) Lymph % (Auto) [place] # (Auto) Seg Neutrophils % Lymphocytes % Absolute Neutrophils Nucleated RBCs RBC Morphology Polychromasia Basophilic Stippling Anisocytosis PT 18.0 H INR 1.4 H VBG Lactic Acid POC Sodium Sodium POC Potassium Potassium POC Chloride Chloride Carbon Dioxide Anion Gap POC BUN POC Creatinine Glucose POC Glucose Osmolality Calcium POC WB Ioniz Calcium Phosphorus Total Bilirubin Direct Bilirubin GGT AST Alkaline Phosphatase Ammonia 64 H Lactate Dehydrogenase Total Protein Albumin Albumin/Globulin Ratio Triglycerides Procalcitonin 0.43 H Urine Occult Blood Urine Mucus Urine Yeast (Budding) Urine Osmolality Ethyl Alcohol 12/06/21 12/06/21 12/06/21 05:56 05:56 02:15 WBC 15.5 H RBC 2.98 L Hgb 10.1 L Hct 28.0 L POC Hct MCH MCHC 36.1 H RDW 15.4 H Neut % (Auto) Lymph % (Auto) [place] # (Auto) Seg Neutrophils % 94 H Lymphocytes % 5 L Absolute Neutrophils Nucleated RBCs RBC Morphology Abnormal A Polychromasia Few A Basophilic Stippling Rare A Anisocytosis 1+ A PT INR VBG Lactic Acid POC Sodium 122 L Sodium 120 L POC Potassium 2.9 L* Potassium POC Chloride 80 L Chloride 83 L Carbon Dioxide 20 L Anion Gap 17.0 H POC BUN 5 L POC Creatinine 1.4 H Glucose 110 H POC Glucose Osmolality Calcium 7.5 L POC WB Ioniz Calcium 0.78 L Phosphorus Total Bilirubin 9.6 H Direct Bilirubin 6.9 H GGT 681 H AST 114 H Alkaline Phosphatase 681 H Ammonia Lactate Dehydrogenase 441 H Total Protein 5.2 L Albumin 2.4 L Albumin/Globulin Ratio 0.9 L Triglycerides 169 H Procalcitonin Urine Occult Blood Urine Mucus Urine Yeast (Budding) Urine Osmolality Ethyl Alcohol 12/05/21 12/05/21 12/05/21 22:16 21:40 21:40 WBC RBC Hgb Hct POC Hct MCH MCHC RDW Neut % (Auto) Lymph % (Auto) [place] # (Auto) Seg Neutrophils % Lymphocytes % Absolute Neutrophils Nucleated RBCs RBC Morphology Polychromasia Basophilic Stippling Anisocytosis PT INR VBG Lactic Acid 5.8 H* POC Sodium 120 L Sodium POC Potassium 3.2 L Potassium POC Chloride 78 L Chloride Carbon Dioxide Anion Gap POC BUN 4 L POC Creatinine 1.6 H Glucose POC Glucose Osmolality 311 H Calcium POC WB Ioniz Calcium 0.89 L Phosphorus Total Bilirubin Direct Bilirubin GGT AST Alkaline Phosphatase Ammonia Lactate Dehydrogenase Total Protein Albumin Albumin/Globulin Ratio Triglycerides Procalcitonin Urine Occult Blood Urine Mucus Urine Yeast (Budding) Urine Osmolality 26 L Ethyl Alcohol 12/05/21 12/05/21 12/05/21 21:40 18:00 18:00 WBC RBC Hgb Hct POC Hct MCH MCHC RDW Neut % (Auto) Lymph % (Auto) [place] # (Auto) Seg Neutrophils % Lymphocytes % Absolute Neutrophils Nucleated RBCs 1 H RBC Morphology Abnormal A Polychromasia Basophilic Stippling Anisocytosis 1+ A PT INR VBG Lactic Acid POC Sodium Sodium POC Potassium Potassium POC Chloride Chloride Carbon Dioxide Anion Gap POC BUN POC Creatinine Glucose POC Glucose Osmolality Calcium POC WB Ioniz Calcium Phosphorus Total Bilirubin Direct Bilirubin GGT AST Alkaline Phosphatase Ammonia Lactate Dehydrogenase Total Protein Albumin Albumin/Globulin Ratio Triglycerides Procalcitonin 0.53 H Urine Occult Blood Moderate A Urine Mucus Few A Urine Yeast (Budding) Few A Urine Osmolality Ethyl Alcohol 12/05/21 12/05/21 12/05/21 17:59 17:59 17:59 WBC RBC Hgb Hct POC Hct MCH MCHC RDW Neut % (Auto) Lymph % (Auto) [place] # (Auto) Seg Neutrophils % Lymphocytes % Absolute Neutrophils Nucleated RBCs RBC Morphology Polychromasia Basophilic Stippling Anisocytosis PT 18.0 H INR 1.4 H VBG Lactic Acid POC Sodium Sodium POC Potassium Potassium POC Chloride Chloride Carbon Dioxide Anion Gap POC BUN POC Creatinine Glucose POC Glucose Osmolality Calcium POC WB Ioniz Calcium Phosphorus Total Bilirubin Direct Bilirubin GGT AST Alkaline Phosphatase Ammonia 173 H Lactate Dehydrogenase Total Protein Albumin Albumin/Globulin Ratio Triglycerides Procalcitonin Urine Occult Blood Urine Mucus Urine Yeast (Budding) Urine Osmolality Ethyl Alcohol 0.244 H 12/05/21 12/05/21 12/05/21 17:58 17:58 10:36 WBC 17.9 H RBC 3.33 L Hgb 11.1 L Hct 30.1 L POC Hct MCH MCHC 36.9 H RDW 14.7 H Neut % (Auto) Lymph % (Auto) [place] # (Auto) 1.41 H Seg Neutrophils % Lymphocytes % Absolute Neutrophils 12.58 H Nucleated RBCs RBC Morphology Polychromasia Basophilic Stippling Anisocytosis PT INR VBG Lactic Acid POC Sodium Sodium 116 L* POC Potassium Potassium 3.2 L POC Chloride Chloride 73 L Carbon Dioxide Anion Gap 19.0 H POC BUN POC Creatinine 1.6 H Glucose POC Glucose Osmolality Calcium 7.9 L POC WB Ioniz Calcium Phosphorus Total Bilirubin 10.8 H Direct Bilirubin 7.1 H GGT AST 117 H Alkaline Phosphatase 755 H Ammonia Lactate Dehydrogenase Total Protein Albumin 2.4 L Albumin/Globulin Ratio 0.7 L Triglycerides Procalcitonin Urine Occult Blood Urine Mucus Urine Yeast (Budding) Urine Osmolality Ethyl Alcohol Meds: Medications Albuterol/Ipratropium (Ipratropium/Albuterol 3 Ml Ampul.Neb) 3 ml NEB Q4HP PRN PRN Reason: Shortness Of Breath Chlordiazepoxide HCl (Chlordiazepoxide 25 Mg Capsule) 50 mg PO Q4HP PRN PRN Reason: Alcohol Withdrawal Last Admin: 12/06/21 10:29 Dose: 50 mg Documented by: Duloxetine HCl (Duloxetine 30 Mg Capsule) 60 mg PO DAILY [facility] Last Admin: 12/07/21 09:42 Dose: 60 mg Documented by: Enoxaparin Sodium (Enoxaparin 40 Mg/0.4 Ml Syringe) 40 mg SQ DAILY [facility] Last Admin: 12/07/21 09:33 Dose: 40 mg Documented by: Famotidine (Famotidine 20 Mg Tablet) 40 mg PO [facility] Folic Acid (Folic Acid 1 Mg Tablet) 1 mg PO DAILY [facility] Last Admin: 12/07/21 09:34 Dose: 1 mg Documented by: Potassium Chloride 40 meq/ (Dextrose) 520 mls @ 130 mls/hr IV UD PRN PRN Reason: Potassium < 3 Last Infusion: 12/06/21 10:20 Dose: Infused Documented by: Magnesium Sulfate (Magnesium Sulfate) 2 gm in 50 mls @ 50 mls/hr IV UD PRN PRN Reason: Magnesium </= 1.6 Thiamine HCl 100 mg/ Sodium (Chloride) 51 mls @ 50 mls/hr IV DAILY [facility] Last Infusion: 12/07/21 10:00 Dose: Infused Documented by: Ceftriaxone Sodium 2 gm/ (Dextrose) 50 mls @ 100 mls/hr IV Q24H [facility]; Protocol Stop: 12/07/21 17:00 Last Infusion: 12/07/21 09:35 Dose: Infused Documented by: Sodium Chloride (Sodium Chloride 3%) 500 mls @ 20 mls/hr IV ONCE ONE Stop: 12/07/21 18:14 Last Infusion: 12/07/21 07:30 Dose: 20 mls/hr Documented by: Iron Carb/Multivit/[place]/Folic Acid (Multivit,Ther Iron,Ca,Fa & Min 1 Tablet) 1 tab PO DAILY [facility] Last Admin: 12/07/21 09:34 Dose: 1 tab Documented by: Lactulose (Lactulose 20 Gm/30 Ml Oral.Josefina) 20 gm PO BID [facility] Last Admin: 12/07/21 09:34 Dose: 20 gm Documented by: Lorazepam (Lorazepam 2 Mg/Ml Vial) 0 mg IV Q4HP PRN; Protocol PRN Reason: Alcohol Withdrawal Lorazepam (Lorazepam 1 Mg Tablet) 1 mg PO BIDP PRN PRN Reason: Anxiety Metoclopramide HCl (Metoclopramide 10 Mg/2 Ml Vial) 10 mg IV Q6HP PRN PRN Reason: Nausea And Vomiting Naproxen (Naproxen 250 Mg Tablet) 250 mg PO BIDP PRN PRN Reason: Pain Ondansetron HCl (Ondansetron 4 Mg/2 Ml Vial) 4 mg IV Q4HP PRN PRN Reason: Nausea And Vomiting Last Admin: 12/06/21 02:21 Dose: 4 mg Documented by: Oxycodone HCl (Oxycodone Hcl 5 Mg Tablet) 5 mg PO Q4HP PRN; Protocol PRN Reason: Per Pain Protocol Last Admin: 12/06/21 09:50 Dose: 5 mg Documented by: Potassium Chloride (Potassium Chloride 20 Meq Tablet) 40 meq PO UD PRN PRN Reason: Potssium is 3-3.5 Last Admin: 12/06/21 22:40 Dose: 40 meq Documented by: Potassium Chloride (Potassium Chloride 20 Meq Tablet) 40 meq PO UD PRN PRN Reason: Potassium < 3 Potassium/Phosphorus/Sodium (Neutra Phos 1 Packet) 2 packet PO BID [facility] Stop: 12/07/21 21:01 Last Admin: 12/07/21 09:33 Dose: 2 packet Documented by: Prednisone (Prednisolone 15 Mg/5 Ml Oral Josefina) 40 mg PO DAILY [facility] Last Admin: 12/07/21 09:33 Dose: 40 mg Documented by: Sodium Chloride (0.9 % Sodium Chloride 10 Ml Syringe) 10 ml IV Q8 [facility] Last Admin: 12/07/21 04:24 Dose: Not Given Documented by: Sodium Chloride (0.9 % Sodium Chloride 10 Ml Syringe) 10 ml IV Q8 [facility] Last Admin: 12/07/21 04:24 Dose: Not Given Documented by: Trazodone HCl (Trazodone Hcl 50 Mg Tablet) 50 mg PO QHS [facility] Last Admin: 12/06/21 20:27 Dose: 50 mg Documented by: A/P Narrative A/P Narrative: Assessment: 51-year-old female with a history of alcohol use disorder admitted for hyponatremia, acute alcoholic hepatitis and new diagnosis of decompensated liver cirrhosis. *Hyponatremia: suspect intravascularly dry, but underlying cirrhosis *Acute alcoholic hepatitis: Diminished function score = 34 - *Cirrhosis, alcoholic: w/mild coagulopathy & hyperbilirubinemia & elevated ammonia & Ascites -MELD=27(20%mortality), Child-Mendez=class C (45%/35%) -LAcate and Procalcitonin not reliable in Liver dz -paracentesis (2/6) of 1.8L, SAAG consistent with portal HTN. *Concern for liver and pancreas masses *Alcohol abuse: High risk for withdrawal *Volume depletion: resolved *Leukocytosis: No Bandemia, No source of infection found. 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
[2021-12-07] MEDS ORDERED: GADOBENATE DIMEGLUMINE 15 ML/VIAL IV ONE (16:24)
[2021-12-07] MEDS: FAMOTIDINE 20 MG TABLET PO SCH (20:17)
[2021-12-07] MEDS: traZODone HCL 50 MG TABLET PO SCH (20:17)
[2021-12-07] MEDS ORDERED: SODIUM CHLORIDE 3 % 500 ML IV PRN (20:20)
[2021-12-08] MEDS ORDERED: SODIUM CHLORIDE 3 % 500 ML IV ONE (02:12)
[2021-12-08 04:51] LABS: Hematocrit 27.9 % (34.1-44.9); Mean Cell Volume 94.6 fL (80.0-100.0); Mean Corpuscular HGB Conc 35.8 g/dL (31.0-36.0); Mean Platelet Volume 10.6 fL (7.4-10.4); Platelet Count 137 K/mcL (140-440); RBC 2.95 M/mcL (3.59-5.38); WBC 14.4 K/mcL (4.5-11.0)
[2021-12-08 04:56] LABS: INR 1.8 (0.9-1.1); Prothrombin Time 21.3 sec (11.9-14.5)
[2021-12-08 05:03] LABS: ALT/SGPT 28 U/L (<40); AST/SGOT 99 U/L (<32); Albumin 2.3 gm/dL (3.2-5.2); Albumin/Globulin Ratio 0.8 (1.0-2.3); Alkaline Phosphatase 623 U/L (39-117); Bilirubin,Direct 6.8 mg/dL (<0.3); Bilirubin,Total 9.9 mg/dL (0.1-1.0); Blood Urea Nitrogen 6 mg/dL (6-20); Calcium 7.7 mg/dL (8.6-10.4); Carbon Dioxide 26 mmol/L (22-30); Chloride 90 mmol/L (96-108); Globulin 2.9 gm/dL (2.2-3.7); Glomerular Filtration Rate 105; Glucose 132 mg/dL (70-105); Lactate Dehydrogenase 426 U/L (135-225); Triglycerides 132 mg/dL (<150)
[2021-12-08 05:28] LABS: Anisocytosis 1+ (None Seen); Band Neutrophils % 2 % (0-10); Hypochromasia 1+ (None Seen); Lymphocytes % 4 % (15-49); Monocytes % (Manual) 3 % (1-12); Platelet Estimate DECREASED (Normal); RBC Morphology ABNORMAL (Normal); Reactive Lymphocytes 1 % (0-2); Segmented Neutrophils % 90 % (38-78); Target Cells 1+ (None Seen)
[2021-12-08] MEDS: 0.9 % SODIUM CHLORIDE 10 ML SYRINGE IV SCH ×4 (06:07→20:57)
[2021-12-08] MEDS: THIAMINE 100 MG in 0.9 % SODIUM CHLORIDE 50 ML IV SCH (09:00)
[2021-12-08] MEDS: LACTULOSE 20 GM/30 ML ORAL.SOL PO SCH ×2 (09:22→20:56)
[2021-12-08] MEDS: prednisoLONE 15 MG/5 ML ORAL SOL PO SCH (09:22)
[2021-12-08] MEDS: MULTIVIT,THER IRON,CA,FA & MIN 1 TABLET PO SCH (09:22)
[2021-12-08] MEDS: FOLIC ACID 1 MG TABLET PO SCH (09:22)
[2021-12-08] MEDS: ENOXAPARIN 40 MG/0.4 ML SYRINGE SQ SCH (09:22)
[2021-12-08] MEDS: DULoxetine 30 MG CAPSULE PO SCH (09:28)
--- NOTE | 2021-12-08 15:00 | Magnetic Resonance Report ---
INDICATION: liver/pancreatic lesions COMPARISON: CT abdomen 12/05/2021. Ultrasound-guided liver 12/06/2021 FINDINGS: Multiplanar multisequence MR images of the liver were performed before and after administration of gadolinium. Thin cut T2 imaging through the biliary tree with 3-D rendering of the biliary tree with MRCP protocol. The liver is enlarged and fatty infiltrated. There are several foci of focal fatty sparing in the periphery of the liver as well as adjacent to the winter hepatis. Winter hepatis focal fatty sparing measures 27 mm. No abnormal enhancement within the liver. Small amount of ascites is seen. The visualized kidneys, adrenals, spleen are within normal limits. The patient status post cholecystectomy. Common duct is 8 mm and there is no biliary dilatation. The pancreas itself is normal. The questionable lesion noted on prior CT probably represented partial volume of peripancreatic fat and duodenum. It is not suspicious. IMPRESSION: Fatty liver with several foci of focal fatty sparing without suspicious abnormality. Normal MRCP. Normal pancreas. In particular, no pancreatic head lesion is noted. Interpreted and Authenticated by: Colt Valenzuela M.D. 12/08/21
[2021-12-08] MEDS: FAMOTIDINE 20 MG TABLET PO SCH (20:56)
[2021-12-08] MEDS: traZODone HCL 50 MG TABLET PO SCH (20:56)
[2021-12-09] MEDS: 0.9 % SODIUM CHLORIDE 10 ML SYRINGE IV SCH ×3 (05:09→22:59)
[2021-12-09] MEDS: MULTIVIT,THER IRON,CA,FA & MIN 1 TABLET PO SCH (08:57)
[2021-12-09] MEDS: DULoxetine 30 MG CAPSULE PO SCH (08:57)
[2021-12-09] MEDS: FOLIC ACID 1 MG TABLET PO SCH (08:57)
[2021-12-09] MEDS: THIAMINE 100 MG in 0.9 % SODIUM CHLORIDE 50 ML IV SCH (08:57)
[2021-12-09] MEDS: ENOXAPARIN 40 MG/0.4 ML SYRINGE SQ SCH (08:57)
[2021-12-09] MEDS: prednisoLONE 15 MG/5 ML ORAL SOL PO SCH (08:57)
[2021-12-09 10:19] LABS: Basophils # (Auto) 0.03 K/mcL (0.00-0.30); Basophils % (Auto) 0.2 % (0.0-2.0); Eosinophils # (Auto) 0.02 K/mcL (0.00-0.70); Eosinophils % (Auto) 0.1 % (0.0-7.0); Hematocrit 30.1 % (34.1-44.9); Hemoglobin 10.8 g/dL (11.2-15.7); Lymphocytes # (Auto) 2.61 K/mcL (1.50-4.80); Lymphocytes % (Auto) 14.3 % (15.5-49.0); Mean Corpuscular HGB Conc 35.9 g/dL (31.0-36.0); Monocytes % (Auto) 7.7 % (1.0-12.0); Neutrophils % (Auto) 77.7 % (38.0-78.0); Platelet Count 155 K/mcL (140-440); RBC 3.07 M/mcL (3.59-5.38); WBC 18.2 K/mcL (4.5-11.0)
[2021-12-09 10:31] LABS: INR 1.8 (0.9-1.1); Prothrombin Time 22.2 sec (11.9-14.5)
[2021-12-09 10:55] LABS: ALT/SGPT 32 U/L (<40); AST/SGOT 103 U/L (<32); Albumin 2.5 gm/dL (3.2-5.2); Alkaline Phosphatase 602 U/L (39-117); Bilirubin,Direct 7.6 mg/dL (<0.3); Bilirubin,Total 10.9 mg/dL (0.1-1.0); Blood Urea Nitrogen 7 mg/dL (6-20); Calcium 7.7 mg/dL (8.6-10.4); Carbon Dioxide 27 mmol/L (22-30); Chloride 88 mmol/L (96-108); Globulin 2.6 gm/dL (2.2-3.7); Glucose 152 mg/dL (70-105); Lactate Dehydrogenase 433 U/L (135-225); Phosphorous 1.7 mg/dL (2.5-4.5); Triglycerides 139 mg/dL (<150); Uric Acid 3.3 mg/dL (2.5-8.0)
[2021-12-09] MEDS: LACTULOSE 20 GM/30 ML ORAL.SOL PO SCH ×2 (11:05→21:00)
[2021-12-09] MEDS: NEUTRA PHOS 1 PACKET PO SCH ×2 (11:49→21:00)
--- NOTE | 2021-12-09 15:20 | Internal Med Progress Note ---
SUBJECTIVE Subjective Patient information: Note initiated : 12/09/21 at 3:18 pm Service Date, if different from initiated Date: [] Patient: Berkley Elizalde a 51 y/o F admitted on 12/05/21 for cold flu. Chief Complaint: [] Interval history: History of present illness: Ms. Elizalde is a 51 year old F To the hospital with generalized malaise and weakness and abdominal bloating over the past couple weeks. She had some headaches nausea and loose stools. Denies hematemesis or melena. No vomiting. Denies fever chills. No cough shortness of breath or chest pain. Per family has noticed her distended abdomen and more significantly her skin color change in eye color change to yellow. She is a chronic alcohol user and admitted to 3 hard drinks per day to the PA in the ED but family says she drinks more than that. Family also reported that she does have withdrawal symptoms when she does not drink. She does not carry a diagnosis of cirrhosis. In the ED her bilirubin was 10. CT abdomen pelvis did not show any biliary dilation but did show fatty infiltration and nodularity, moderate ascites. INR was 1.4 Sodium was 116 Leukocytosis. Alcohol level 244 Ammonia 173 and an elevated AST 12/06 No overnight event or new complaints. Patient denies any vomiting overnight. Does have some diarrhea. Headache Leukocytosis but no bandemia. Procalcitonin mildly elevated but difficult to interpret in liver failure, same with lactate level. INR stable Continue antibiotics until paracentesis done. 12/07 Abdomen feels better after the paracentesis. Fluid analysis indicative of portal hypertension Still working on hyponatremia. Increased WBC likely secondary to steroids. 12/08 Alert and oriented, sodium level about the same, INR and bilirubin also about the same. Awaiting MRI abdomen report. 12/09 MRI abdomen did not show any lesions suspicious for malignancy. LFTs slightly increased however the patient is feeling better today overall and working with therapy. Physical exam Head: Atraumatic, normal inspection. Eyes: scleral icterus Neck: full ROM Respiratory: no respiratory distress. Cardiovascular: normal rate and rhythm, S1, S2. GI/Abdominal: soft, nontender, no guarding. Extremities: full range of motion, nontender. Neurological: CN II-XII intact, intact motor, intact sensation. Psychiatric: normal mood. Skin: warm, normal color Constitutional Vitals: Vital Signs Temp Pulse Resp BP Pulse Ox 98.3 F 131 H 42 H 135/75 90 12/09/21 12:43 12/09/21 12:43 12/09/21 12:43 12/09/21 12:43 12/09/21 12:43 Period Temp Pulse Resp BP Sys/[place] Pulse Ox Last 24 Hr 97.1 F-98.3 F 94-131 12-42 111-135/75-92 90-96 Intake and Output 12/09/21 12/09/21 12/09/21 05:59 13:59 21:59 Intake Total 240 321 Output Total 300 Balance -60 321 Intake & Output: Intake & Output 12/09/21 12/09/21 12/09/21 05:59 13:59 21:59 Intake Total 240 321 Output Total 300 Balance -60 321 Intake: IV 51 Sodium Chloride 3% 500 ml @ 20 0 mls/hr IV PRN PRN Rx#: [id number] Vitamin B1 100 mg In Sodium 51 Chloride 0.9% 50 ml @ 50 mls/hr IV DAILY DAVID Rx#:[id number] Oral 240 120 GI Tube Flush 150 Output: Void Amount 25 Urine/Stool Mix 275 Other: Meal Breakfast Percent of Meal Consumed 75% Feeding Ability Independent Stool Size Small Moderate Stool Color Green Brown Blood Tinged Yellow Stool Consistency Loose Liquid # Bowel Movements 1 OBJ DATA Labs CBC & Chem 7: 12/09/21 09:32 12/09/21 09:32 Labs: Abnormal Lab Results 12/09/21 12/09/21 12/09/21 09:32 09:32 09:32 WBC 18.2 H RBC 3.07 L Hgb 10.8 L Hct 30.1 L POC Hct MCH 35.2 H MCHC RDW 18.0 H Plt Count MPV Neut % (Auto) Lymph % (Auto) 14.3 L [place] # (Auto) 1.40 H Seg Neutrophils % Lymphocytes % Absolute Neutrophils 14.15 H Platelet Estimate RBC Morphology Hypochromasia Anisocytosis Target Cells PT 22.2 H INR 1.8 H POC Sodium Sodium 125 L POC Chloride Chloride 88 L POC BUN Creatinine < 0.5 L Glucose 152 H POC Glucose Calcium 7.7 L POC WB Ioniz Calcium Phosphorus 1.7 L Total Bilirubin 10.9 H Direct Bilirubin 7.6 H GGT 664 H AST 103 H Alkaline Phosphatase 602 H Lactate Dehydrogenase 433 H Total Protein 5.1 L Albumin 2.5 L Albumin/Globulin Ratio Triglycerides 12/08/21 12/08/21 12/08/21 15:56 12:32 07:54 WBC RBC Hgb Hct POC Hct MCH MCHC RDW Plt Count MPV Neut % (Auto) Lymph % (Auto) [place] # (Auto) Seg Neutrophils % Lymphocytes % Absolute Neutrophils Platelet Estimate RBC Morphology Hypochromasia Anisocytosis Target Cells PT INR POC Sodium Sodium 128 L 125 L 126 L POC Chloride Chloride POC BUN Creatinine Glucose POC Glucose Calcium POC WB Ioniz Calcium Phosphorus Total Bilirubin Direct Bilirubin GGT AST Alkaline Phosphatase Lactate Dehydrogenase Total Protein Albumin Albumin/Globulin Ratio Triglycerides 12/08/21 12/08/21 12/08/21 04:04 04:04 04:04 WBC 14.4 H RBC 2.95 L Hgb 10.0 L Hct 27.9 L POC Hct MCH MCHC RDW 16.0 H Plt Count 137 L MPV 10.6 H Neut % (Auto) Lymph % (Auto) [place] # (Auto) Seg Neutrophils % 90 H Lymphocytes % 4 L Absolute Neutrophils Platelet Estimate Decreased A RBC Morphology Abnormal A Hypochromasia 1+ A Anisocytosis 1+ A Target Cells 1+ A PT 21.3 H INR 1.8 H POC Sodium Sodium 126 L POC Chloride Chloride 90 L POC BUN Creatinine Glucose 132 H POC Glucose Calcium 7.7 L POC WB Ioniz Calcium Phosphorus 2.0 L Total Bilirubin 9.9 H Direct Bilirubin 6.8 H GGT 638 H AST 99 H Alkaline Phosphatase 623 H Lactate Dehydrogenase 426 H Total Protein 5.2 L Albumin 2.3 L Albumin/Globulin Ratio 0.8 L Triglycerides 12/07/21 12/07/21 12/07/21 19:47 14:00 10:56 WBC RBC Hgb Hct POC Hct MCH MCHC RDW Plt Count MPV Neut % (Auto) Lymph % (Auto) [place] # (Auto) Seg Neutrophils % Lymphocytes % Absolute Neutrophils Platelet Estimate RBC Morphology Hypochromasia Anisocytosis Target Cells PT INR POC Sodium Sodium 126 L 125 L 126 L POC Chloride Chloride POC BUN Creatinine Glucose POC Glucose Calcium POC WB Ioniz Calcium Phosphorus Total Bilirubin Direct Bilirubin GGT AST Alkaline Phosphatase Lactate Dehydrogenase Total Protein Albumin Albumin/Globulin Ratio Triglycerides 12/07/21 12/07/21 12/07/21 05:34 05:34 05:33 WBC 18.4 H RBC 2.94 L Hgb 10.2 L Hct 28.2 L POC Hct MCH 34.7 H MCHC 36.2 H RDW 15.9 H Plt Count MPV Neut % (Auto) 82.3 H Lymph % (Auto) 9.3 L [place] # (Auto) 1.53 H Seg Neutrophils % Lymphocytes % Absolute Neutrophils 15.16 H Platelet Estimate RBC Morphology Hypochromasia Anisocytosis Target Cells PT 20.3 H INR 1.7 H POC Sodium Sodium 122 L POC Chloride Chloride 84 L POC BUN Creatinine Glucose 128 H POC Glucose Calcium 7.7 L POC WB Ioniz Calcium Phosphorus 1.6 L Total Bilirubin 9.9 H Direct Bilirubin 6.3 H GGT 654 H AST 99 H Alkaline Phosphatase 652 H Lactate Dehydrogenase 494 H Total Protein 5.7 L Albumin 2.5 L Albumin/Globulin Ratio 0.8 L Triglycerides 159 H 12/07/21 12/07/21 12/06/21 00:48 00:16 22:23 WBC RBC Hgb Hct POC Hct 35 L 34 L MCH MCHC RDW Plt Count MPV Neut % (Auto) Lymph % (Auto) [place] # (Auto) Seg Neutrophils % Lymphocytes % Absolute Neutrophils Platelet Estimate RBC Morphology Hypochromasia Anisocytosis Target Cells PT INR POC Sodium 125 L 125 L Sodium 124 L POC Chloride 83 L 82 L Chloride POC BUN 5 L Creatinine Glucose POC Glucose 145 H 135 H Calcium POC WB Ioniz Calcium 0.91 L 0.97 L Phosphorus Total Bilirubin Direct Bilirubin GGT AST Alkaline Phosphatase Lactate Dehydrogenase Total Protein Albumin Albumin/Globulin Ratio Triglycerides 12/06/21 16:05 WBC RBC Hgb Hct POC Hct 33 L MCH MCHC RDW Plt Count MPV Neut % (Auto) Lymph % (Auto) [place] # (Auto) Seg Neutrophils % Lymphocytes % Absolute Neutrophils Platelet Estimate RBC Morphology Hypochromasia Anisocytosis Target Cells PT INR POC Sodium 123 L Sodium POC Chloride 83 L Chloride POC BUN 5 L Creatinine Glucose POC Glucose 141 H Calcium POC WB Ioniz Calcium 0.90 L Phosphorus Total Bilirubin Direct Bilirubin GGT AST Alkaline Phosphatase Lactate Dehydrogenase Total Protein Albumin Albumin/Globulin Ratio Triglycerides Meds: Medications Albuterol/Ipratropium (Ipratropium/Albuterol 3 Ml Ampul.Neb) 3 ml NEB Q4HP PRN PRN Reason: Shortness Of Breath Chlordiazepoxide HCl (Chlordiazepoxide 25 Mg Capsule) 50 mg PO Q4HP PRN PRN Reason: Alcohol Withdrawal Last Admin: 12/06/21 10:29 Dose: 50 mg Documented by: Duloxetine HCl (Duloxetine 30 Mg Capsule) 60 mg PO DAILY [facility] Last Admin: 12/09/21 08:57 Dose: 60 mg Documented by: Enoxaparin Sodium (Enoxaparin 40 Mg/0.4 Ml Syringe) 40 mg SQ DAILY [facility] Last Admin: 12/09/21 08:57 Dose: 40 mg Documented by: Famotidine (Famotidine 20 Mg Tablet) 40 mg PO HS [facility] Last Admin: 12/08/21 20:56 Dose: 40 mg Documented by: Folic Acid (Folic Acid 1 Mg Tablet) 1 mg PO DAILY [facility] Last Admin: 12/09/21 08:57 Dose: 1 mg Documented by: Potassium Chloride 40 meq/ (Dextrose) 520 mls @ 130 mls/hr IV UD PRN PRN Reason: Potassium < 3 Last Infusion: 12/06/21 10:20 Dose: Infused Documented by: Magnesium Sulfate (Magnesium Sulfate) 2 gm in 50 mls @ 50 mls/hr IV UD PRN PRN Reason: Magnesium </= 1.6 Thiamine HCl 100 mg/ Sodium (Chloride) 51 mls @ 50 mls/hr IV DAILY [facility] Last Infusion: 12/09/21 11:06 Dose: Infused Documented by: Iron Carb/Multivit/[place]/Folic Acid (Multivit,Ther Iron,Ca,Fa & Min 1 Tablet) 1 tab PO DAILY [facility] Last Admin: 12/09/21 08:57 Dose: 1 tab Documented by: Lactulose (Lactulose 20 Gm/30 Ml Oral.Josefina) 20 gm PO BID [facility] Last Admin: 12/09/21 11:05 Dose: Not Given Documented by: Lorazepam (Lorazepam 2 Mg/Ml Vial) 0 mg IV Q4HP PRN; Protocol PRN Reason: Alcohol Withdrawal Lorazepam (Lorazepam 1 Mg Tablet) 1 mg PO BIDP PRN PRN Reason: Anxiety Metoclopramide HCl (Metoclopramide 10 Mg/2 Ml Vial) 10 mg IV Q6HP PRN PRN Reason: Nausea And Vomiting Ondansetron HCl (Ondansetron 4 Mg/2 Ml Vial) 4 mg IV Q4HP PRN PRN Reason: Nausea And Vomiting Last Admin: 12/06/21 02:21 Dose: 4 mg Documented by: Oxycodone HCl (Oxycodone Hcl 5 Mg Tablet) 5 mg PO Q4HP PRN; Protocol PRN Reason: Per Pain Protocol Last Admin: 12/06/21 09:50 Dose: 5 mg Documented by: Potassium Chloride (Potassium Chloride 20 Meq Tablet) 40 meq PO UD PRN PRN Reason: Potssium is 3-3.5 Last Admin: 12/06/21 22:40 Dose: 40 meq Documented by: Potassium Chloride (Potassium Chloride 20 Meq Tablet) 40 meq PO UD PRN PRN Reason: Potassium < 3 Potassium/Phosphorus/Sodium (Neutra Phos 1 Packet) 2 packet PO BID [facility] Stop: 12/10/21 09:01 Last Admin: 12/09/21 11:49 Dose: 2 packet Documented by: Prednisone (Prednisolone 15 Mg/5 Ml Oral Josefina) 40 mg PO DAILY [facility] Last Admin: 12/09/21 08:57 Dose: 40 mg Documented by: Sodium Chloride (0.9 % Sodium Chloride 10 Ml Syringe) 10 ml IV Q8 [facility] Last Admin: 12/09/21 05:09 Dose: 10 ml Documented by: Trazodone HCl (Trazodone Hcl 50 Mg Tablet) 50 mg PO QHS [facility] Last Admin: 12/08/21 20:56 Dose: 50 mg Documented by: A/P Narrative A/P Narrative: Assessment: 51-year-old female with a history of alcohol use disorder admitted for hyponatremia, severe acute alcoholic hepatitis and new diagnosis of decompensated liver cirrhosis. *Hyponatremia likely secondary to liver cirrhosis *Acute alcoholic hepatitis: Diminished function score = 34 *Cirrhosis, alcoholic: w/mild coagulopathy & hyperbilirubinemia & elevated ammonia & Ascites -MELD=27(20%mortality), Child-Mendez=class C (45%/35%) -LAcate and Procalcitonin not reliable in Liver dz -paracentesis (12/06) of 1.8L, SAAG consistent with portal HTN. *Bright red blood per rectum *Alcohol use disorder *Volume depletion: resolved *Leukocytosis likely secondary to prednisolone *Hypophosphatemia *Coagulopathy *Depression: *GERD: *Chronic pain: P: -prednisolone 40mg x28 days, followed by 16-day taper -CIWA protocol, vitamins, prn benzo -consider lasix/aldactone prior to d/c -monitor for recurrent BRBPR-hemorrhoidal bleed? -replace electrolytes prn -fluid restriction -monitor sodium and LFTs -f/u closely with GI/kitman and needs surveillance EGD -ppx: Lovenox -Full code Time Spent With Patient Time: Total time spent is greater than 50% in coordination of care (as documented) at patient's floor/unit and/or counseling patient: QUALITY VTE Deep Vein Thrombosis/Pulmonary Embolism Present on Admission: No
[2021-12-09] MEDS: oxyCODONE HCL 5 MG TABLET PO PRN (17:56)
[2021-12-09] MEDS: FAMOTIDINE 20 MG TABLET PO SCH (21:00)
[2021-12-09] MEDS: traZODone HCL 50 MG TABLET PO SCH (21:00)
[2021-12-10] MEDS: 0.9 % SODIUM CHLORIDE 10 ML SYRINGE IV SCH ×2 (04:35→15:32)
[2021-12-10 07:04] LABS: Basophils # (Auto) 0.07 K/mcL (0.00-0.30); Basophils % (Auto) 0.3 % (0.0-2.0); Eosinophils # (Auto) 0.07 K/mcL (0.00-0.70); Eosinophils % (Auto) 0.3 % (0.0-7.0); Hematocrit 30.7 % (34.1-44.9); Hemoglobin 10.7 g/dL (11.2-15.7); Lymphocytes # (Auto) 3.59 K/mcL (1.50-4.80); Lymphocytes % (Auto) 17.7 % (15.5-49.0); Mean Cell Volume 98.1 fL (80.0-100.0); Mean Corpuscular HGB Conc 34.9 g/dL (31.0-36.0); Mean Platelet Volume 9.9 fL (7.4-10.4); Monocytes # (Auto) 1.89 K/mcL (0.10-0.90); Monocytes % (Auto) 9.3 % (1.0-12.0); Neutrophils % (Auto) 72.4 % (38.0-78.0); Platelet Count 175 K/mcL (140-440); RBC 3.13 M/mcL (3.59-5.38); Red Cell Distribution Width 18.5 % (11.5-14.5); WBC 20.3 K/mcL (4.5-11.0)
[2021-12-10 07:16] LABS: INR 1.7 (0.9-1.1)
[2021-12-10 07:47] LABS: ALT/SGPT 33 U/L (<40); AST/SGOT 103 U/L (<32); Albumin 2.7 gm/dL (3.2-5.2); Alkaline Phosphatase 589 U/L (39-117); Bilirubin,Total 11.2 mg/dL (0.1-1.0); Blood Urea Nitrogen 8 mg/dL (6-20); Carbon Dioxide 31 mmol/L (22-30); Chloride 88 mmol/L (96-108); Globulin 2.6 gm/dL (2.2-3.7); Glucose 118 mg/dL (70-105)
[2021-12-10] MEDS ORDERED: LACTULOSE 20 GM/30 ML ORAL.SOL PO PRN (08:28)
[2021-12-10] MEDS: LACTULOSE 20 GM/30 ML ORAL.SOL PO SCH ×2 (08:55→15:32)
[2021-12-10] MEDS: ENOXAPARIN 40 MG/0.4 ML SYRINGE SQ SCH (08:56)
[2021-12-10] MEDS: DULoxetine 30 MG CAPSULE PO SCH (08:56)
[2021-12-10] MEDS: THIAMINE 100 MG in 0.9 % SODIUM CHLORIDE 50 ML IV SCH (08:56)
[2021-12-10] MEDS: MULTIVIT,THER IRON,CA,FA & MIN 1 TABLET PO SCH (08:57)
[2021-12-10] MEDS: FOLIC ACID 1 MG TABLET PO SCH (08:57)
[2021-12-10] MEDS: NEUTRA PHOS 1 PACKET PO SCH (09:01)
[2021-12-10] MEDS: prednisoLONE 15 MG/5 ML ORAL SOL PO SCH (11:00)
[2021-12-10] MEDS ORDERED: SPIRONOLACTONE 25 MG TABLET PO SCH (11:25)
[2021-12-10] MEDS ORDERED: FUROSEMIDE 40 MG TABLET PO SCH (11:25)
--- NOTE | 2021-12-10 13:02 | Discharge Summary ---
Discharge Provider Provider Patient information: Note initiated : 12/10/21 at 12:54 pm Service Date, if different from initiated Date: [] Patient: Berkley Elizalde 51 y/o F admitted on 12/05/21 for cold flu. Chief Complaint: [] Date of admission: 12/05/21 23:26 Discharge date: 12/10/21 Primary care physician: Lencho Pandey Consults: 12/05/21 Consult to Physician [CONS] Stat Comment: Consulting Provider: Capo Rhodes Reason For Exam: Physician to Consult Discharge Meds Discharge Medications Home Medications multivitamin 1 tab PO DAILY 12/06/17 [History Confirmed 12/06/21 Last Taken 12/05/21] trazodone 50 mg tablet 50 mg PO QHS 03/10/21 [History Confirmed 12/06/21 Last Taken Unknown] duloxetine 60 mg capsule,delayed release (Cymbalta) 60 mg PO QDAY 12/06/21 [History Confirmed 12/06/21 Last Taken 12/05/21] lansoprazole 30 mg capsule,delayed release (Prevacid) 30 mg PO QDAY 12/06/21 [History Confirmed 12/06/21 Last Taken 12/05/21] furosemide 40 mg tablet 40 mg PO DAILY #60 tab 12/10/21 [Rx Last Taken Unknown] lactulose 20 gram/30 mL oral solution 30 ml PO QIDP PRN #1200 ml 12/10/21 [Rx Last Taken Unknown] prednisolone sodium phosphate 20 mg/5 mL (4 mg/mL) oral solution 40 mg (10 mL) P O QDAY #237 ml 12/10/21 [Rx Last Taken Unknown] spironolactone 25 mg tablet 100 mg PO DAILY #90 tab 12/10/21 [Rx Last Taken Unknown] COURSE Hospital Course Hospital course: Ms. Elizalde is a 51 year old F To the hospital with generalized malaise and weakness and abdominal bloating over the past couple weeks. She had some headaches nausea and loose stools. Denies hematemesis or melena. No vomiting. Denies fever chills. No cough shortness of breath or chest pain. Per family has noticed her distended abdomen and more significantly her skin color change in eye color change to yellow. She is a chronic alcohol user and admitted to 3 hard drinks per day to the PA in the ED but family says she drinks more than that. Family also reported that she does have withdrawal symptoms when she does not drink. She does not carry a diagnosis of cirrhosis. In the ED her bilirubin was 10. CT abdomen pelvis did not show any biliary dilation but did show fatty infiltration and nodularity, moderate ascites. INR was 1.4 Sodium was 116 Leukocytosis. Alcohol level 244 Ammonia 173 and an elevated AST Viral hepatitis panel negative for hepatitis A, B, C. 12/06 No overnight event or new complaints. Patient denies any vomiting overnight. Does have some diarrhea. Headache Leukocytosis but no bandemia. Procalcitonin mildly elevated but difficult to interpret in liver failure, same with lactate level. INR stable Continue antibiotics until paracentesis done. 12/07 Abdomen feels better after the paracentesis. Fluid analysis indicative of portal hypertension Still working on hyponatremia. Increased WBC likely secondary to steroids. 12/08 Alert and oriented, sodium level about the same, INR and bilirubin also about the same. Awaiting MRI abdomen report. 12/09 MRI abdomen did not show any lesions suspicious for malignancy. LFTs slightly increased however the patient is feeling better today overall and working with therapy. 12/10 INR slightly downtrending, bilirubin increased slightly. The patient feels better and overall appears much improved since admission. Started on Lasix and Spironolactone for volume overload secondary to liver cirrhosis. Will discharge on Prednisolone for severe alcoholic hepatitis. Discharged on lactulose for hepatic encephalopathy prevention. Discharged to home with family supervision. Follow up with GI and Addiction Medicine. Post hospital follow up; -Follow up on sodium level, INR, LFTs, renal function and electrolytes. -Evaluate volume status-discharged on lasix 40 mg daily and Spironolactone 100 mg daily. -Calculate Lille Model score at follow up to risk stratify the patient for acute alcoholic hepatitis. -Referable placed for GI, consider referral to hepatology. -Referral placed for Addiction Medicine. -Encourage alcohol abstinence. Physical exam Head: Atraumatic, normal inspection. Eyes: scleral icteruspresent Neck: full ROM Respiratory: no respiratory distress. Cardiovascular: normal rate and rhythm, S1, S2. GI/Abdominal: soft, nontender, no guarding. Extremities: bilateral lower extremity 2+ pitting edema, full range of motion, nontender. Neurological: CN II-XII intact, intact motor, intact sensation. Psychiatric: normal mood. Skin: warm, normal color Discharge diagnosis: Severe alcoholic hepatitis Time Spent with Patient Time attestation: Total time spent providing and/or coordinating discharge services: EXAM Constitutional Vitals: Temp Pulse Resp BP Pulse Ox 97.4 F 139 H 25 H 108/83 82 L 12/10/21 09:39 12/10/21 10:35 12/10/21 10:35 12/10/21 10:01 12/10/21 10:35 Discharge Data Data Completed and Pending Labs on day of discharge: Labs from last 24 hours 12/10/21 12/10/21 12/10/21 06:17 06:17 06:17 WBC RBC Hgb Hct MCV MCH MCHC RDW Plt Count MPV Neut % (Auto) Lymph % (Auto) [place] % (Auto) Eos % (Auto) Baso % (Auto) Lymph # (Auto) [place] # (Auto) Eos # (Auto) Baso # (Auto) Absolute Neutrophils PT 21.0 H INR 1.7 H Sodium 126 L Potassium 3.7 Chloride 88 L Carbon Dioxide 31 H Anion Gap 7.0 L BUN 8 Creatinine < 0.7 GFR Calculation TNP Glucose 118 H Calcium 8.0 L Total Bilirubin 11.2 H AST 103 H ALT 33 Alkaline Phosphatase 589 H Ammonia 62 H Total Protein 5.3 L Albumin 2.7 L Globulin 2.6 Albumin/Globulin Ratio 1.0 12/10/21 06:17 WBC 20.3 H RBC 3.13 L Hgb 10.7 L Hct 30.7 L MCV 98.1 MCH 34.2 H MCHC 34.9 RDW 18.5 H Plt Count 175 MPV 9.9 Neut % (Auto) 72.4 Lymph % (Auto) 17.7 [place] % (Auto) 9.3 Eos % (Auto) 0.3 Baso % (Auto) 0.3 Lymph # (Auto) 3.59 [place] # (Auto) 1.89 H Eos # (Auto) 0.07 Baso # (Auto) 0.07 Absolute Neutrophils 14.66 H PT INR Sodium Potassium Chloride Carbon Dioxide Anion Gap BUN Creatinine GFR Calculation Glucose Calcium Total Bilirubin AST ALT Alkaline Phosphatase Ammonia Total Protein Albumin Globulin Albumin/Globulin Ratio Preliminary micro results at discharge 12/05/21 22:00 Blood Culture - Preliminary Blood 12/05/21 21:26 Blood Culture - Preliminary Blood Discharge Plan Patient/Caregiver Discharge Instructions Activity: increase activity as tolerated Diet: Low Sodium (2gm) Instructions: Cirrhosis (GEN), Hyponatremia (GEN), Abuse of Alcohol (GEN), Alcoholic Hepatitis (GEN) Prescriptions: New furosemide 40 mg Tablet 40 mg PO DAILY Qty: 60 3RF lactulose 20 gram/30 mL Solution 30 ml PO QIDP PRN (Reason: CONSTIPATION) Qty: 1200 3RF Rx Instructions: Take as needed for 2-3 loose bowel movements per day. prednisolone sodium phosphate 20 mg/5 mL (4 mg/mL) solution 40 mg PO QDAY Qty: 237 1RF Rx Instructions: Take Prednisolone 40 mg daily for 25 more days then decrease to 30 mg daily for 4 days followed by 20 mg daily for 4 days followed by 10 mg daily for 4 days followed by 5 mg daily for 4 days then discontinue. spironolactone 25 mg Tablet 100 mg PO DAILY Qty: 90 4RF Continued multivitamin tablet 1 tab PO DAILY 0RF Label Comments: PO trazodone 50 mg tablet 50 mg PO QHS 0RF lansoprazole [Prevacid] 30 mg Capsule,Delayed Release(Dr/Ec) 30 mg PO QDAY 0RF duloxetine [Cymbalta] 60 mg Capsule,Delayed Release(Dr/Ec) 60 mg PO QDAY 0RF Discontinued naproxen sodium [Aleve] 220 mg capsule 440 mg PO BID PRN (Reason: Pain) 0RF lorazepam [Ativan] 1 mg Tablet 1 mg PO BID PRN (Reason: Anxiety) 0RF Follow Up Plan Follow up with: Lencho Pandey DO [Primary Care Provider] - 12/16/21 3:30 pm Jb Katz MD [Physician] - (A referral has been sent; they will contact you to schedule an appointment.) Sheila Lipscomb DO [Physician] - (Referral for severe alcohol use disorder. ) Patient Disposition: Home, Self-Care Prognosis: Fair Overall status at discharge: patient is progressing back to baseline Discharge Orders: Discharge Order (Routine); Ordered 12/10/21 Ordered By: Antoni BENTON VTE Deep Vein Thrombosis/Pulmonary Embolism Present on Admission: No
== END 2021-12-10 17:20 | disposition home or self-care (01) | DRG 433 ==
LOC: ED 17:36 → ICU 23:26
PROVIDERS: ADMIT Internal Medicine; ATTEND Internal Medicine

== ENCOUNTER 2021-12-30 16:30 | Inpatient (IN) ==
--- NOTE | 2021-12-30 16:51 | Emergency Department Note ---
HPI <Mukul Stern PA-C - Last Filed: 12/30/21 20:14> General Chief complaint: Recheck/Abnormal Lab/Rx Stated complaint: Low sodium Time Seen by Provider: 12/30/21 16:36 Source: patient Mode of arrival: ambulatory Limitations: no limitations History of Present Illness HPI Narrative: Berkley is a 51-year-old female who comes to the emergency department after being evaluated by her primary care provider Dr. Pandey with concerning lab findings for hyponatremia as well as hyperammonemia. The patient does have a history of a cirrhotic liver which she states was recently diagnosed several months ago. She does have a history of recent inpatient hospital stay for alcohol withdrawal and has a history of alcohol use disorder. She denies recent alcohol use and states that she has not been drinking over the past month however there is concern from her family member that this is not accurate. Report of her alcohol use is that she has increased her drinking due to her recent divorce. The patient had labs drawn at her primary care office which resulted in a sodium of 122 as well as an increased ammonia level of 31. She has no history of hepatitis, SIADH, or hepatic encephalopathy. The patient is taking lactulose which she reports that she is sometimes noncompliant with. She is not reporting any increased thirst or polyuria. Patient does have a resting tremor but is not reporting any seizure-like activity. Patient denies fever, nausea, vomiting, or chills. She has no other complaints today no other modifying factors. Related Data Home Medications Medication Instructions Recorded Confirmed multivitamin 1 tab PO DAILY 12/06/17 12/06/21 trazodone 50 mg tablet 50 mg PO QHS 03/10/21 12/06/21 duloxetine 60 mg capsule,delayed 60 mg PO QDAY 12/06/21 12/06/21 release (Cymbalta) lansoprazole 30 mg capsule,delayed 30 mg PO QDAY 12/06/21 12/06/21 release (Prevacid) Previous Rx's Medication Instructions Recorded furosemide 40 mg tablet 40 mg PO DAILY #60 tab 12/10/21 lactulose 20 gram/30 mL oral 30 ml PO QIDP PRN #1200 ml 12/10/21 solution prednisolone sodium phosphate 20 40 mg (10 mL) PO QDAY #237 ml 12/10/21 mg/5 mL (4 mg/mL) oral solution spironolactone 25 mg tablet 100 mg PO DAILY #90 tab 12/10/21 Allergies Allergy/AdvReac Type Severity Reaction Status Date / Time rizatriptan [From Maxalt] AdvReac Mild felt weird Verified 12/30/21 16:35 Review of Systems <Mukul Stern PA-C - Last Filed: 12/30/21 20:14> ROS ROS Narrative: Narrative: PFSH <Mukul Stern PA-C - Last Filed: 12/30/21 20:14> Narrative Patient History Narrative: Narrative: Medical/Surgical/Family History All Active Problems (Updated 12/30/21 @ 20:14 by Mukul Stern PA-C) Alcoholic cirrhosis of liver with ascites (Acute) Hyponatremia (Acute) Abdominal ascites (Acute) Hyponatremia (Acute) Alcoholic hepatitis (Acute) History of tobacco use (Chronic) Insomnia (Chronic) Lumbar radiculopathy (Chronic) Chronic pain (Chronic) Disorder of gallbladder (Chronic) Gastroenteritis (Acute) Acute dehydration (Acute) Elevated aldolase level (Acute) Paresthesia (Acute) Back pain (Acute) Polyarthralgia (Chronic) Rheumatoid factor positive (Chronic) Elevated liver enzymes (Chronic) Steatosis of liver (Chronic) Arthritis (Chronic) Arthralgia (Chronic) Hormonal disorder (Chronic) Anxiety (Chronic) Heartburn (Chronic) Weight loss (Chronic) Indigestion (Chronic) Abdominal pain (Chronic) HTN (hypertension) (Chronic) GERD without esophagitis (Chronic) Generalized anxiety disorder (Chronic) Depression (Chronic) Fatigue (Chronic) Feeling poorly (Chronic) Dysphagia (Chronic) Headache (Chronic) Joint pain (Chronic) Lack of appetite (Chronic) Nausea & vomiting (Acute) Rheumatoid arthritis (Chronic) Medical History Abdominal pain Acute dehydration Anxiety Arthralgia Arthritis Back pain Chronic pain Depression Disorder of gallbladder Dysphagia Elevated aldolase level Elevated liver enzymes Fatigue Feeling poorly Gastroenteritis Generalized anxiety disorder GERD without esophagitis Headache Heartburn History of tobacco use 30 year use - quit 2014 Hormonal disorder hormonal changes HTN (hypertension) Indigestion Insomnia Joint pain Lack of appetite Low back pain Lumbar radiculopathy Nausea & vomiting Paresthesia Polyarthralgia Rheumatoid arthritis Rheumatoid factor positive Steatosis of liver Weight loss Surgical History History of esophagogastroduodenoscopy (EGD) (11/22/17) History of laparoscopic cholecystectomy (02/09/18) Family History Mother Malignant neoplasm of lung Hypertension Alcohol abuse Sister Malignant neoplasm of lung Alcohol abuse Hypertension Father Alcohol abuse Social History Smoking Status: Never smoker Alcohol Intake Frequency: former alcohol drinker Substance Use: does not use Exam <Mukul Stern PA-C - Last Filed: 12/30/21 20:14> Narrative Narrative: Narrative: General Limitations: no limitations General appearance: Present alert and anxious Head Head: Present atraumatic, normocephalic and normal inspection Eye Eye: Present PERRL, EOMI and scleral icterus ENT ENT: Present normal exam, normal oropharynx and mucous membranes moist Neck Neck: Present normal inspection, full ROM and trachea midline Chest Chest: Present normal inspection and symmetric chest wall rise Respiratory Respiratory: Present normal lung sounds bilaterally Cardiovascular Cardiovascular: Present normal rhythm and tachycardia Adbominal Abdominal: Present soft Extremities Extremities: Present normal inspection, full ROM and normal capillary refill Back Back: Present normal inspection and full ROM Neurological Neurological: Present alert, oriented X3 and normal gait Psychiatric Psychiatric: Present normal affect and normal mood Skin Skin: Present warm (WNL), dry and other (Jaundiced) Course <Mukul Stern PA-C - Last Filed: 12/30/21 20:14> Course Course Narrative: 1554: Patient could be suffering from beer potomania or potentially SIADH. IV has been placed. Gentle hydration has been initiated however we are going to run fluid slow as to prevent any type of pontine demyelination. Basic labs have been ordered as well as a urinalysis, osmoles, urine spot sodium. Plan will be to admit to the hospital due to hyponatremia with concern for alcohol withdrawal. Ativan has been ordered both for anxiety and to increase seizure threshold. EKG on my read shows sinus tachycardia with ventricular rate of 121 bpm, no ST elevation or depression, no hyperacute T waves. No evidence of WPW/Brugada/hear t block. 1809: Patient's labs have been reviewed. She does have an elevated white blood cell count but in the absence of fever I do not believe she is suffering from any acute infectious processes. Patient also has elevated bilirubin of 14 as well as worsening hyponatremia with a sodium of 120 and elevated liver enzymes. Despite the patient reporting that she has been abstinent of alcohol for the past month I believe that she is continuing to drink which is worsening her status. Ammonia is 34 which shows improvement over her last inpatient hospital stay down from 60s. We will discuss this patient with the hospitalist. 1924: Report was given to the hospitalist and at this point time he would like us to consult with a GI specialist at a tertiary health care center for advice on management of the patient. Currently there is no on-call GI specialist in the [place] consult with. We are working with the transfer center to obtain consultation with a sales representative aircraft with [facility]. 1949: I had a conversation with Dr. Gray with [facility] in [place] regarding the patient. After reviewing the case with the sales representative aircraft he has advised admission for sodium correction as well as monitoring of the patients magnesium and phosphorus. He believes the route cause of the patients serum sodium problems are due to alcoholic hepatitis. Recommendations were made to treat with Trental 400 mg TID for the next 28 days and he did provide a number [phone] for the patient to call to get established follow up with a GI specialist. At this point in time, I believe the patient should be admitted to the hospital due to severe hyponatremia. I spoke to Dr. Rhodes regarding this patient and he was not sure if Trental was carried in the hospital. He is going to call me back. 2003: Patient to be admitted to Dr. Rhodes. Vital Signs Vital signs: Vital Signs Temperature 36.7 C 12/30/21 16:31 Pulse Rate 120 H 12/30/21 16:31 Respiratory Rate 18 12/30/21 16:31 Blood Pressure 126/91 12/30/21 16:31 Pulse Oximetry (%) 93 12/30/21 16:31 Temperature 37.2 C 12/30/21 23:28 Pulse Rate 82 12/30/21 23:28 Respiratory Rate 24 H 12/30/21 23:28 Blood Pressure 112/68 12/30/21 23:28 Pulse Oximetry (%) 96 12/30/21 23:28 [facility] <Mukul Stern PA-C - Last Filed: 03/02/22 20:14> [facility] Narrative Medical decision making narrative: 51 year old female with history of cirrhotic liver and alcohol use disorder who arrives to the ER from her primary care office due to hyponatremia. Patient has history of inpatient stays due to this. Patient was lost to follow up with GI specialist for treatment of her alcoholic hepatitis. She also has a history of ascites but is without fluid collection on exam today. She was drained 7 days ago. Consult was made with GI specialist at [facility] who advised inpatient stay for hyponatremia and monitoring of electrolytes. Patient to be initiated on Trental for treatment of alcoholic hepatitis. Plan will be to admit the patient for sodium correction and establish follow up with GI in [place]. Patient was given gentle hydration in the ER and ativan for increased seizure threshold. Assessment: Hyponatremia. Alcoholic hepatitis. Treatment: Gentle hydration in the ER. Ativan for anxiety. Patient admitted to the hospital. Lab Data Result diagrams: 12/30/21 16:48 12/30/21 16:47 Labs: Lab Results 12/30/21 12/30/21 12/30/21 Range/Units 16:47 16:47 16:47 WBC (4.5-11.0) K/mcL RBC (3.59-5.38) M/mcL Hgb (11.2-15.7) g/dL Hct (34.1-44.9) % POC Hct (36-48) % MCV (80.0-100.0) fL MCH (26.0-34.0) pg MCHC (31.0-36.0) g/dL RDW (11.5-14.5) % Plt Count (140-440) K/mcL MPV (7.4-10.4) fL Neut % (Auto) (38.0-78.0) % Lymph % (Auto) (15.5-49.0) % Hyde % (Auto) (1.0-12.0) % Eos % (Auto) (0.0-7.0) % Baso % (Auto) (0.0-2.0) % Lymph # (Auto) (1.50-4.80) K/mcL Hyde # (Auto) (0.10-0.90) K/mcL Eos # (Auto) (0.00-0.70) K/mcL Baso # (Auto) (0.00-0.30) K/mcL Absolute Neutrophils (1.80-8.00) K/mcL POC Sodium (133-145) mEq/L Sodium 120 L (133-145) mmol/L POC Potassium (3.3-5.1) mEql/L Potassium 3.8 (3.3-5.1) mmol/L POC Chloride (96-108) mEq/L Chloride 82 L (96-108) mmol/L Carbon Dioxide 23 (22-30) mmol/L POC Total CO2 (22-30) mmol/L Anion Gap 15.0 (8.0-16.0) POC BUN (6-20) mg/dL BUN 8 (6-20) mg/dL Creatinine TNP POC Creatinine (0.6-1.2) mg/dL GFR Calculation TNP Glucose 113 H (70-105) mg/dL POC Glucose (70-105) mg/dL Osmolality 256 L (280-300) mOSM/kg Calcium 8.0 L (8.6-10.4) mg/dL POC WB Ioniz Calcium (1.16-1.32) mmEq/L Phosphorus (2.5-4.5) mg/dL Magnesium (1.6-2.5) mg/dL Total Bilirubin 14.4 H (0.1-1.0) mg/dL AST 105 H (<32) U/L ALT 63 H (<40) U/L Alkaline Phosphatase 415 H (39-117) U/L Ammonia 36 (11-51) umol/L Total Protein 5.7 L (5.9-8.4) gm/dL Albumin 2.8 L (3.2-5.2) gm/dL Globulin 2.9 (2.2-3.7) gm/dL Albumin/Globulin Ratio 1.0 (1.0-2.3) Urine Color Urine Appearance (Clear) Urine pH (5.0-9.0) Ur Specific [place] (1.000-1.035) Urine Protein (Negative) mg/dL Urine Glucose (UA) (Negative) mg/dL Urine Ketones (Negative) mg/dL Urine Occult Blood (Negative) tevin/mcL Urine Nitrate (Negative) Urine Bilirubin (Negative) mg/dL Urine Urobilinogen mg/dL Ur Leukocyte Esterase (Negative) /uL Urine RBC (0-3) /hpf Urine WBC (0-4) /hpf Ur Squamous Epith Cells (0-4) /hpf Urine Bacteria (0) /hpf Urine Mucus (None) /hpf Ur Culture Indicated? Urine Osmolality (80-1000) mOSM/kg Ur Random Sodium mmol/L Ethyl Alcohol < 0.010 (<0.010) gm/dL 12/30/21 12/30/21 12/30/21 Range/Units 16:47 16:48 17:08 WBC 17.1 H (4.5-11.0) K/mcL RBC 3.94 (3.59-5.38) M/mcL Hgb 13.3 (11.2-15.7) g/dL Hct 38.8 (34.1-44.9) % POC Hct (36-48) % MCV 98.5 (80.0-100.0) fL MCH 33.8 (26.0-34.0) pg MCHC 34.3 (31.0-36.0) g/dL RDW 17.2 H (11.5-14.5) % Plt Count 180 (140-440) K/mcL MPV 9.9 (7.4-10.4) fL Neut % (Auto) 86.5 H (38.0-78.0) % Lymph % (Auto) 7.5 L (15.5-49.0) % Hyde % (Auto) 5.4 (1.0-12.0) % Eos % (Auto) 0.4 (0.0-7.0) % Baso % (Auto) 0.2 (0.0-2.0) % Lymph # (Auto) 1.29 L (1.50-4.80) K/mcL Hyde # (Auto) 0.92 H (0.10-0.90) K/mcL Eos # (Auto) 0.07 (0.00-0.70) K/mcL Baso # (Auto) 0.04 (0.00-0.30) K/mcL Absolute Neutrophils 14.78 H (1.80-8.00) K/mcL POC Sodium (133-145) mEq/L Sodium (133-145) mmol/L POC Potassium (3.3-5.1) mEql/L Potassium (3.3-5.1) mmol/L POC Chloride (96-108) mEq/L Chloride (96-108) mmol/L Carbon Dioxide (22-30) mmol/L POC Total CO2 (22-30) mmol/L Anion Gap (8.0-16.0) POC BUN (6-20) mg/dL BUN (6-20) mg/dL Creatinine POC Creatinine (0.6-1.2) mg/dL GFR Calculation Glucose (70-105) mg/dL POC Glucose (70-105) mg/dL Osmolality (280-300) mOSM/kg Calcium (8.6-10.4) mg/dL POC WB Ioniz Calcium (1.16-1.32) mmEq/L Phosphorus 1.9 L (2.5-4.5) mg/dL Magnesium 1.8 (1.6-2.5) mg/dL Total Bilirubin (0.1-1.0) mg/dL AST (<32) U/L ALT (<40) U/L Alkaline Phosphatase (39-117) U/L Ammonia (11-51) umol/L Total Protein (5.9-8.4) gm/dL Albumin (3.2-5.2) gm/dL Globulin (2.2-3.7) gm/dL Albumin/Globulin Ratio (1.0-2.3) Urine Color Urine Appearance (Clear) Urine pH (5.0-9.0) Ur Specific [place] (1.000-1.035) Urine Protein (Negative) mg/dL Urine Glucose (UA) (Negative) mg/dL Urine Ketones (Negative) mg/dL Urine Occult Blood (Negative) etvin/mcL Urine Nitrate (Negative) Urine Bilirubin (Negative) mg/dL Urine Urobilinogen mg/dL Ur Leukocyte Esterase (Negative) /uL Urine RBC (0-3) /hpf Urine WBC (0-4) /hpf Ur Squamous Epith Cells (0-4) /hpf Urine Bacteria (0) /hpf Urine Mucus (None) /hpf Ur Culture Indicated? Urine Osmolality (80-1000) mOSM/kg Ur Random Sodium 10 mmol/L Ethyl Alcohol (<0.010) gm/dL 12/30/21 12/30/21 12/30/21 Range/Units 17:08 17:08 20:19 WBC (4.5-11.0) K/mcL RBC (3.59-5.38) M/mcL Hgb (11.2-15.7) g/dL Hct (34.1-44.9) % POC Hct 44 (36-48) % MCV (80.0-100.0) fL MCH (26.0-34.0) pg MCHC (31.0-36.0) g/dL RDW (11.5-14.5) % Plt Count (140-440) K/mcL MPV (7.4-10.4) fL Neut % (Auto) (38.0-78.0) % Lymph % (Auto) (15.5-49.0) % Hyde % (Auto) (1.0-12.0) % Eos % (Auto) (0.0-7.0) % Baso % (Auto) (0.0-2.0) % Lymph # (Auto) (1.50-4.80) K/mcL Hyde # (Auto) (0.10-0.90) K/mcL Eos # (Auto) (0.00-0.70) K/mcL Baso # (Auto) (0.00-0.30) K/mcL Absolute Neutrophils (1.80-8.00) K/mcL POC Sodium 126 L (133-145) mEq/L Sodium (133-145) mmol/L POC Potassium 3.6 (3.3-5.1) mEql/L Potassium (3.3-5.1) mmol/L POC Chloride 89 L (96-108) mEq/L Chloride (96-108) mmol/L Carbon Dioxide (22-30) mmol/L POC Total CO2 25 (22-30) mmol/L Anion Gap (8.0-16.0) POC BUN 7 (6-20) mg/dL BUN (6-20) mg/dL Creatinine POC Creatinine 0.6 (0.6-1.2) mg/dL GFR Calculation Glucose (70-105) mg/dL POC Glucose 83 (70-105) mg/dL Osmolality (280-300) mOSM/kg Calcium (8.6-10.4) mg/dL POC WB Ioniz Calcium 0.96 L (1.16-1.32) mmEq/L Phosphorus (2.5-4.5) mg/dL Magnesium (1.6-2.5) mg/dL Total Bilirubin (0.1-1.0) mg/dL AST (<32) U/L ALT (<40) U/L Alkaline Phosphatase (39-117) U/L Ammonia (11-51) umol/L Total Protein (5.9-8.4) gm/dL Albumin (3.2-5.2) gm/dL Globulin (2.2-3.7) gm/dL Albumin/Globulin Ratio (1.0-2.3) Urine Color Lani Urine Appearance Clear (Clear) Urine pH 5.5 (5.0-9.0) Ur Specific [place] 1.025 (1.000-1.035) Urine Protein 30 mg/dl A (Negative) mg/dL Urine Glucose (UA) 100 mg/dl A (Negative) mg/dL Urine Ketones 15 mg/dl A (Negative) mg/dL Urine Occult Blood Trace-intact A (Negative) tevin/mcL Urine Nitrate Negative (Negative) Urine Bilirubin Large A (Negative) mg/dL Urine Urobilinogen Normal mg/dL Ur Leukocyte Esterase Negative (Negative) /uL Urine RBC 1 (0-3) /hpf Urine WBC 3 (0-4) /hpf Ur Squamous Epith Cells 12 H (0-4) /hpf Urine Bacteria None (0) /hpf Urine Mucus Many A (None) /hpf Ur Culture Indicated? No Urine Osmolality 642 (80-1000) mOSM/kg Ur Random Sodium mmol/L Ethyl Alcohol (<0.010) gm/dL ED POC Tests ED POC Tests: SEGUN - SARS Antigen Negative Discharge Plan Patient/Caregiver Discharge Instructions Pt seen by OCCUPATIONAL HEALTH NURSE/PA only: Yes Clinical Impression: Hyponatremia Alcoholic hepatitis Qualifiers: Ascites presence: with ascites Qualified Code(s): K70.11 - Alcoholic hepatitis with ascites Patient Disposition: Xfer As Inpt ([facility]) Condition: Good Discharge Date/Time: 12/30/21 21:05
[2021-12-30] MEDS: 0.9 % SODIUM CHLORIDE 1,000 ML IV SCH ×3 (16:53→23:22)
[2021-12-30] MEDS ORDERED: LORazepam 2 MG/ML VIAL IV ONE (16:55)
[2021-12-30 17:26] LABS: Basophils # (Auto) 0.04 K/mcL (0.00-0.30); Basophils % (Auto) 0.2 % (0.0-2.0); Eosinophils # (Auto) 0.07 K/mcL (0.00-0.70); Eosinophils % (Auto) 0.4 % (0.0-7.0); Hematocrit 38.8 % (34.1-44.9); Hemoglobin 13.3 g/dL (11.2-15.7); Lymphocytes # (Auto) 1.29 K/mcL (1.50-4.80); Lymphocytes % (Auto) 7.5 % (15.5-49.0); Mean Cell Volume 98.5 fL (80.0-100.0); Mean Corpuscular HGB Conc 34.3 g/dL (31.0-36.0); Mean Platelet Volume 9.9 fL (7.4-10.4); Monocytes # (Auto) 0.92 K/mcL (0.10-0.90); Monocytes % (Auto) 5.4 % (1.0-12.0); Neutrophils % (Auto) 86.5 % (38.0-78.0); Platelet Count 180 K/mcL (140-440); RBC 3.94 M/mcL (3.59-5.38); Red Cell Distribution Width 17.2 % (11.5-14.5); WBC 17.1 K/mcL (4.5-11.0)
[2021-12-30 18:05] LABS: ALT/SGPT 63 U/L (<40); AST/SGOT 105 U/L (<32); Albumin 2.8 gm/dL (3.2-5.2); Alkaline Phosphatase 415 U/L (39-117); Bilirubin,Total 14.4 mg/dL (0.1-1.0); Blood Urea Nitrogen 8 mg/dL (6-20); Carbon Dioxide 23 mmol/L (22-30); Chloride 82 mmol/L (96-108); Globulin 2.9 gm/dL (2.2-3.7); Glucose 113 mg/dL (70-105)
[2021-12-30 18:23] LABS: Appearance,Urine Clear (Clear); Bilirubin,Urine Large mg/dL (Negative); Color,Urine Amber; Culture Indicated,Urine No; Ketones,Urine 15 mg/dL mg/dL (Negative); Leukocyte Esterase,Urine Negative /uL (Negative); Mucus,Urine MANY /hpf; Nitrate,Urine Negative (Negative); PH,Urine 5.5 (5.0-9.0); Specific Gravity,Urine 1.025 (1.000-1.035); Urine Blood Trace-intact ery/mcL (Negative); Urine RBC 1 /hpf (0-3); Urine Squamous Epithelial Cell 12 /hpf (0-4); Urine WBC 3 /hpf (0-4); Urobilinogen,Urine Normal
[2021-12-30 19:14] LABS: Alcohol, Blood < 10.0 mg/dL; Alcohol,Blood < 0.010 gm/dL (<0.010)
[2021-12-30] MEDS ORDERED: ALBUMIN HUMAN 12.5 GM/50 ML BAG IV ONE (20:08)
[2021-12-30 20:28] LABS: POC Blood Urea Nitrogen 7 mg/dL (6-20); POC CO2 25 mmol/L (22-30); POC Calcium, Ionized 0.96 mmEq/L (1.16-1.32); POC Chloride 89 mEq/L (96-108); POC Creatinine 0.6 mg/dL (0.6-1.2); POC Glucose, Random 83 mg/dL (70-105); POC Hematocrit 44 % (36-48); POC Potassium 3.6 mEql/L (3.3-5.1); POC Sodium 126 mEq/L (133-145)
[2021-12-30 20:38] LABS: Phosphorous 1.9 mg/dL (2.5-4.5)
--- NOTE | 2021-12-30 20:41 | Internal Med History&Physical ---
HPI History of Present Illness Patient information: Note initiated : 12/30/21 at 8:24 pm Service Date, if different from initiated Date: [] Patient: Berkley Elizalde a 51 y/o F admitted on for Low sodium. Chief Complaint: [] History of present illness: Ms. Elizalde is a 51 year old F Admitted a month ago for alcoholic hepatitis and hyponatremia and ascites. She received paracentesis and glucocorticoids for alcoholic hepatitis. Treatment for hyponatremia. Patient was instructed to follow-up closely with catalytic case operator/concrete finishing machine operator but has not been able find catalytic case operator yet. She reported but present today because of follow-up labs which showed a low sodium of 120. She has no new complaints. Case discussed with catalytic case operator [employer] who recommended starting her on Trental correcting her sodium and fluid restricting 1500 cc/day and follow- up closely with GI. Goal here is to improve her sodium as much as possible and have her follow-up closely with GI. If she presents back to the ED for the same thing again before she has seen a catalytic case operator it would be pointless to admit her here as she most certainly needs to see a specialist and should be admitted where they have a catalytic case operator who can subsequently follow her outpatient. In the ED on the and did have a paracentesis in the ED. She denies any alcohol use since last discharge. Review of Systems: Pertinent positives as above. Denies headache/fever/chills/nausea/vomiting/chest or abdominal pain/cough/dyspnea/diarrhea. Many 10 point review of system reviewed negative PFSH PFSH All Active Problems (Updated 12/30/21 @ 20:14 by Mukul Stern PA-C) Alcoholic cirrhosis of liver with ascites (Acute) Hyponatremia (Acute) Abdominal ascites (Acute) Hyponatremia (Acute) Alcoholic hepatitis (Acute) History of tobacco use (Chronic) Insomnia (Chronic) Lumbar radiculopathy (Chronic) Chronic pain (Chronic) Disorder of gallbladder (Chronic) Gastroenteritis (Acute) Acute dehydration (Acute) Elevated aldolase level (Acute) Paresthesia (Acute) Back pain (Acute) Polyarthralgia (Chronic) Rheumatoid factor positive (Chronic) Elevated liver enzymes (Chronic) Steatosis of liver (Chronic) Arthritis (Chronic) Arthralgia (Chronic) Hormonal disorder (Chronic) Anxiety (Chronic) Heartburn (Chronic) Weight loss (Chronic) Indigestion (Chronic) Abdominal pain (Chronic) HTN (hypertension) (Chronic) GERD without esophagitis (Chronic) Generalized anxiety disorder (Chronic) Depression (Chronic) Fatigue (Chronic) Feeling poorly (Chronic) Dysphagia (Chronic) Headache (Chronic) Joint pain (Chronic) Lack of appetite (Chronic) Nausea & vomiting (Acute) Rheumatoid arthritis (Chronic) Medical History Abdominal pain Acute dehydration Anxiety Arthralgia Arthritis Back pain Chronic pain Depression Disorder of gallbladder Dysphagia Elevated aldolase level Elevated liver enzymes Fatigue Feeling poorly Gastroenteritis Generalized anxiety disorder GERD without esophagitis Headache Heartburn History of tobacco use 30 year use - quit 2014 Hormonal disorder hormonal changes HTN (hypertension) Indigestion Insomnia Joint pain Lack of appetite Low back pain Lumbar radiculopathy Nausea & vomiting Paresthesia Polyarthralgia Rheumatoid arthritis Rheumatoid factor positive Steatosis of liver Weight loss Surgical History History of esophagogastroduodenoscopy (EGD) (11/22/17) History of laparoscopic cholecystectomy (02/09/18) Family History Mother Malignant neoplasm of lung Hypertension Alcohol abuse Sister Malignant neoplasm of lung Alcohol abuse Hypertension Father Alcohol abuse Social History (Updated 03/27/21 @ 11:21 by Corin Hackett) marital status: education level: college occupational status: 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: 2 children smoking status: Former smoker alcohol intake frequency: former alcohol drinker substance use type: does not use MEDS/ALLERGIES Home Medications and Allergies Home Medications Medication Instructions Recorded Confirmed Type multivitamin 1 tab PO DAILY 12/06/17 12/06/21 History trazodone 50 mg tablet 50 mg PO QHS 03/10/21 12/06/21 History duloxetine 60 mg capsule,delayed 60 mg PO QDAY 12/06/21 12/06/21 History release (Cymbalta) lansoprazole 30 mg capsule,delayed 30 mg PO QDAY 12/06/21 12/06/21 History release (Prevacid) furosemide 40 mg tablet 40 mg PO DAILY #60 tab 12/10/21 Rx lactulose 20 gram/30 mL oral 30 ml PO QIDP PRN #1200 ml 12/10/21 Rx solution prednisolone sodium phosphate 20 40 mg (10 mL) PO QDAY #237 ml 12/10/21 Rx mg/5 mL (4 mg/mL) oral solution spironolactone 25 mg tablet 100 mg PO DAILY #90 tab 12/10/21 Rx Allergies Allergy/AdvReac Type Severity Reaction Status Date / Time rizatriptan [From Maxalt] AdvReac Mild felt weird Verified 12/30/21 16:35 EXAM Constitutional Vitals: Temp Pulse Resp BP Pulse Ox 98.1 F 119 H 24 H 126/84 97 12/30/21 16:31 12/30/21 20:22 12/30/21 20:22 12/30/21 20:16 12/30/21 20:22 Exam: General: Alert, Awake, No acute Distress Eyes/N/T: EOMI, PERRL, scleral icterus Head/Neck: neck supple, normocephalic atraumatic CV: Tacky but regular, No murmurs, normal s1/s2 Pulm: Clear b/l, no wheezing/rhonchi/rales Abd: soft, mildly distended, nontender, +BS x4 Ext: no clubbing/cyanosis, 3+ b/l LE edema Neuro: Alert, no focal deficits, moves all extremities, CN 2-12 grossly intact, symmetrical strength b/l upper/lower, sensations intact b/l upper/lower Skin: warm/dry, jaundice DATA Data Completed and Pending Labs: Labs from last 24 hours 12/30/21 12/30/21 12/30/21 20:19 17:08 17:08 WBC RBC Hgb Hct POC Hct Pending MCV MCH MCHC RDW Plt Count MPV Neut % (Auto) Lymph % (Auto) [place] % (Auto) Eos % (Auto) Baso % (Auto) Lymph # (Auto) [place] # (Auto) Eos # (Auto) Baso # (Auto) Absolute Neutrophils POC Sodium Pending Sodium POC Potassium Pending Potassium POC Chloride Pending Chloride Carbon Dioxide POC Total CO2 Pending Anion Gap POC BUN Pending BUN Creatinine POC Creatinine Pending GFR Calculation Glucose POC Glucose Pending Osmolality Calcium POC WB Ioniz Calcium Pending Phosphorus Magnesium Total Bilirubin AST ALT Alkaline Phosphatase Ammonia Total Protein Albumin Globulin Albumin/Globulin Ratio Urine Color Lani Urine Appearance Clear Urine pH 5.5 Ur Specific [place] 1.025 Urine Protein 30 mg/dl A Urine Glucose (UA) 100 mg/dl A Urine Ketones 15 mg/dl A Urine Occult Blood Trace-intact A Urine Nitrate Negative Urine Bilirubin Large A Urine Urobilinogen Normal Ur Leukocyte Esterase Negative Urine RBC 1 Urine WBC 3 Ur Squamous Epith Cells 12 H Urine Bacteria None Urine Mucus Many A Ur Culture Indicated? No Urine Osmolality 642 Ur Random Sodium Ethyl Alcohol 12/30/21 12/30/21 12/30/21 17:08 16:48 16:47 WBC 17.1 H RBC 3.94 Hgb 13.3 Hct 38.8 POC Hct MCV 98.5 MCH 33.8 MCHC 34.3 RDW 17.2 H Plt Count 180 MPV 9.9 Neut % (Auto) 86.5 H Lymph % (Auto) 7.5 L [place] % (Auto) 5.4 Eos % (Auto) 0.4 Baso % (Auto) 0.2 Lymph # (Auto) 1.29 L [place] # (Auto) 0.92 H Eos # (Auto) 0.07 Baso # (Auto) 0.04 Absolute Neutrophils 14.78 H POC Sodium Sodium POC Potassium Potassium POC Chloride Chloride Carbon Dioxide POC Total CO2 Anion Gap POC BUN BUN Creatinine POC Creatinine GFR Calculation Glucose POC Glucose Osmolality Calcium POC WB Ioniz Calcium Phosphorus Pending Magnesium Pending Total Bilirubin AST ALT Alkaline Phosphatase Ammonia Total Protein Albumin Globulin Albumin/Globulin Ratio Urine Color Urine Appearance Urine pH Ur Specific [place] Urine Protein Urine Glucose (UA) Urine Ketones Urine Occult Blood Urine Nitrate Urine Bilirubin Urine Urobilinogen Ur Leukocyte Esterase Urine RBC Urine WBC Ur Squamous Epith Cells Urine Bacteria Urine Mucus Ur Culture Indicated? Urine Osmolality Ur Random Sodium 10 Ethyl Alcohol 12/30/21 12/30/21 12/30/21 16:47 16:47 16:47 WBC RBC Hgb Hct POC Hct MCV MCH MCHC RDW Plt Count MPV Neut % (Auto) Lymph % (Auto) [place] % (Auto) Eos % (Auto) Baso % (Auto) Lymph # (Auto) [place] # (Auto) Eos # (Auto) Baso # (Auto) Absolute Neutrophils POC Sodium Sodium 120 L POC Potassium Potassium 3.8 POC Chloride Chloride 82 L Carbon Dioxide 23 POC Total CO2 Anion Gap 15.0 POC BUN BUN 8 Creatinine TNP POC Creatinine GFR Calculation TNP Glucose 113 H POC Glucose Osmolality 256 L Calcium 8.0 L POC WB Ioniz Calcium Phosphorus Magnesium Total Bilirubin 14.4 H AST 105 H ALT 63 H Alkaline Phosphatase 415 H Ammonia 36 Total Protein 5.7 L Albumin 2.8 L Globulin 2.9 Albumin/Globulin Ratio 1.0 Urine Color Urine Appearance Urine pH Ur Specific [place] Urine Protein Urine Glucose (UA) Urine Ketones Urine Occult Blood Urine Nitrate Urine Bilirubin Urine Urobilinogen Ur Leukocyte Esterase Urine RBC Urine WBC Ur Squamous Epith Cells Urine Bacteria Urine Mucus Ur Culture Indicated? Urine Osmolality Ur Random Sodium Ethyl Alcohol < 0.010 A/P Narrative A/P Narrative: A: *Hyponatremia: 2/2 cirrhosis *recent diagnosis Acute alcoholic hepatitis: currently on glucocorticoids *Cirrhosis, alcoholic: w/mild coagulopathy & hyperbilirubinemia & hypoalbuminemia -MELD=27(20%mortality), Child-Mendez=class C (45%/35%) >> from last admission *Alcohol abuse: denies any since last admit *Leukocytosis: chronic, afebrile, nontoxic *Depression: *GERD: will stop *Chronic pain: P: -Per [employer] catalytic case operator >1500cc fluid restrict, Trental 400mg tid [id number] -Albumin/lasix -will d/c home aldactone and just continue lasix -prn paracenteisis -start 16-day prednisolone taper -if persistent hypotension develops will add midodrine -cont home lactulose -f/u closely with GI/concrete finishing machine operator -mery gastroenterologistphone for patient to establish care [phone] -will stop home ppi given increased risk for SBP -Home medication reconciliation -ppx: Lovenox, f/u INR Full code Time Spent With Patient Time: Total time spent is greater than 50% in coordination of care (as documented) at patient's floor/unit and/or counseling patient:
[2021-12-30] MEDS ORDERED: POTASSIUM CHLORIDE 40 MEQ in DEXTROSE 5% IN WATER 500 ML IV PRN (21:43)
[2021-12-30] MEDS ORDERED: MAGNESIUM SULFATE 2 GM/50 ML BAG IV PRN (21:43)
[2021-12-30] MEDS ORDERED: ONDANSETRON 4 MG/2 ML VIAL IV PRN (21:43)
[2021-12-30] MEDS ORDERED: LACTULOSE 20 GM/30 ML ORAL.SOL PO PRN (21:43)
[2021-12-30] MEDS ORDERED: IPRATROPIUM/ALBUTEROL 3 ML AMPUL.NEB NEB PRN (21:43)
[2021-12-30] MEDS ORDERED: POTASSIUM CHLORIDE 20 MEQ TABLET PO PRN ×2 (21:43)
[2021-12-30] MEDS ORDERED: ALBUMIN HUMAN 50 ML IV ONE (22:38)
[2021-12-30] MEDS ORDERED: FUROSEMIDE 40 MG/4 ML VIAL IV ONE (22:43)
[2021-12-30] MEDS ORDERED: NEUTRA PHOS 1 PACKET ONE (22:44)
[2021-12-30] MEDS: NEUTRA PHOS 1 PACKET PO SCH (22:47)
[2021-12-30] MEDS: FUROSEMIDE 40 MG/4 ML VIAL IV SCH (22:47)
[2021-12-30] MEDS: PENTOXIFYLLINE 400 MG TABLET PO SCH (22:47)
[2021-12-30] MEDS: 0.9 % SODIUM CHLORIDE 10 ML SYRINGE IV SCH (22:48)
[2021-12-31] MEDS ORDERED: ALBUMIN HUMAN 12.5 GM/50 ML BAG IV ONE ×2 (00:30→16:00)
[2021-12-31 00:51] LABS: POC Blood Urea Nitrogen 7 mg/dL (6-20); POC CO2 26 mmol/L (22-30); POC Calcium, Ionized 0.87 mmEq/L (1.16-1.32); POC Chloride 89 mEq/L (96-108); POC Creatinine 0.6 mg/dL (0.6-1.2); POC Glucose, Random 144 mg/dL (70-105); POC Hematocrit 48 % (36-48); POC Sodium 124 mEq/L (133-145)
[2021-12-31] MEDS: 0.9 % SODIUM CHLORIDE 10 ML SYRINGE IV SCH ×3 (04:35→20:20)
[2021-12-31 07:14] LABS: INR 1.6 (0.9-1.1); Prothrombin Time 19.4 sec (11.9-14.5)
[2021-12-31 07:21] LABS: ALT/SGPT 49 U/L (<40); AST/SGOT 80 U/L (<32); Albumin 2.9 gm/dL (3.2-5.2); Albumin/Globulin Ratio 1.2 (1.0-2.3); Alkaline Phosphatase 349 U/L (39-117); Bilirubin,Direct 9.2 mg/dL (<0.3); Bilirubin,Total 13.3 mg/dL (0.1-1.0); Blood Urea Nitrogen 6 mg/dL (6-20); Calcium 7.6 mg/dL (8.6-10.4); Carbon Dioxide 25 mmol/L (22-30); Chloride 88 mmol/L (96-108); Globulin 2.4 gm/dL (2.2-3.7); Glucose 104 mg/dL (70-105); Lactate Dehydrogenase 308 U/L (135-225); Phosphorous 2.1 mg/dL (2.5-4.5); Triglycerides 104 mg/dL (<150); Uric Acid 2.6 mg/dL (2.5-8.0)
[2021-12-31] MEDS: ENOXAPARIN 40 MG/0.4 ML SYRINGE SQ SCH (08:49)
[2021-12-31] MEDS: FUROSEMIDE 40 MG/4 ML VIAL IV SCH ×2 (08:50→16:32)
[2021-12-31] MEDS: NEUTRA PHOS 1 PACKET PO SCH ×2 (08:50→20:20)
[2021-12-31] MEDS: PENTOXIFYLLINE 400 MG TABLET PO SCH ×3 (08:51→20:16)
--- NOTE | 2021-12-31 09:07 | Internal Med Progress Note ---
SUBJECTIVE Subjective Patient information: Note initiated : 12/31/21 at 9:03 am Service Date, if different from initiated Date: [] Patient: Berkley Elizalde 51 y/o F admitted on 12/30/21 for Low sodium. Chief Complaint: [] Interval history: Review of Systems: denies headache/fever/chills/nausea/vomiting/chest or abdominal pain/cough/dyspnea/diarrhea. Otherwise see above.Ms. Elizalde is a 51 year old F Admitted a month ago for alcoholic hepatitis and hyponatremia and ascites. She received paracentesis and glucocorticoids for alcoholic hepatitis. Treatment for hyponatremia. Patient was instructed to follow-up closely with plush brusher/diesel powerplant mechanic but has not been able find plush brusher yet. She reported but present today because of follow-up labs which showed a low sodium of 120. She has no new complaints. Case discussed with plush brusher [employer] who recommended starting her on Trental correcting her sodium and fluid restricting 1500 cc/day and follow- up closely with GI. Goal here is to improve her sodium as much as possible and have her follow-up closely with GI. If she presents back to the ED for the same thing again before she has seen a plush brusher it would be pointless to admit her here as she most certainly needs to see a specialist and should be admitted where they have a plush brusher who can subsequently follow her outpatient. In the ED on the and did have a paracentesis in the ED. She denies any alcohol use since last discharge. 3/3 Feeling a little better today. Sodium gradually improving. Potassium mildly low. Review of Systems: denies headache/fever/chills/nausea/vomiting/chest or abdominal pain/cough/dyspnea. Otherwise see above. Constitutional Vitals: Vital Signs Temp Pulse Resp BP Pulse Ox 96.9 F L 119 H 14 124/84 97 12/31/21 08:12 12/31/21 08:12 12/31/21 08:12 12/31/21 08:12 12/31/21 08:12 Period Temp Pulse Resp BP Sys/[place] Pulse Ox Last 24 Hr 96.9 F-98.9 F 82-120 14-32 110-145/68-99 93-99 Intake and Output 12/30/21 12/31/21 12/31/21 21:59 05:59 13:59 Intake Total 1750 550 Output Total 1400 Balance 1750 -850 Weight 67.041 kg Intake & Output: Intake & Output 12/30/21 12/31/21 12/31/21 21:59 05:59 13:59 Intake Total 1750 550 Output Total 1400 Balance 1750 -850 Weight 67.041 kg Intake: IV 1750 350 Sodium Chloride 0.9% 1,000 ml @ 1700 300 500 mls/hr IV .Q2H DAVID Rx#: [id number] Oral 200 Output: Void Amount 1400 Other: Urine Appearance Clear Urine Color Bright Yellow Exam: General: Alert, Awake, No acute Distress Eyes/N/T: EOMI,scleral icterus Head/Neck: neck supple, CV: Tacky but regular, No murmurs, Pulm: Clear b/l, no wheezing/rhonchi/rales Abd: soft, mildly distended, nontender, +BS x4 Ext: no clubbing/cyanosis, 3+ b/l LE edema Neuro: Alert, no focal deficits, moves all extremities, Skin: warm/dry, jaundice OBJ DATA Labs CBC & Chem 7: 12/30/21 16:48 12/31/21 05:12 Labs: Abnormal Lab Results 12/31/21 12/31/21 12/31/21 05:12 05:12 00:40 WBC RDW Neut % (Auto) Lymph % (Auto) Lymph # (Auto) [place] # (Auto) Absolute Neutrophils PT 19.4 H INR 1.6 H POC Sodium 124 L Sodium 123 L Potassium 3.0 L POC Chloride 89 L Chloride 88 L Glucose POC Glucose 144 H Osmolality Calcium 7.6 L POC WB Ioniz Calcium 0.87 L Phosphorus 2.1 L Total Bilirubin 13.3 H Direct Bilirubin 9.2 H GGT 362 H AST 80 H ALT 49 H Alkaline Phosphatase 349 H Lactate Dehydrogenase 308 H Total Protein 5.3 L Albumin 2.9 L Urine Protein Urine Glucose (UA) Urine Ketones Urine Occult Blood Urine Bilirubin Ur Squamous Epith Cells Urine Mucus 12/30/21 12/30/21 12/30/21 20:19 17:08 16:48 WBC 17.1 H RDW 17.2 H Neut % (Auto) 86.5 H Lymph % (Auto) 7.5 L Lymph # (Auto) 1.29 L [place] # (Auto) 0.92 H Absolute Neutrophils 14.78 H PT INR POC Sodium 126 L Sodium Potassium POC Chloride 89 L Chloride Glucose POC Glucose Osmolality Calcium POC WB Ioniz Calcium 0.96 L Phosphorus Total Bilirubin Direct Bilirubin GGT AST ALT Alkaline Phosphatase Lactate Dehydrogenase Total Protein Albumin Urine Protein 30 mg/dl A Urine Glucose (UA) 100 mg/dl A Urine Ketones 15 mg/dl A Urine Occult Blood Trace-intact A Urine Bilirubin Large A Ur Squamous Epith Cells 12 H Urine Mucus Many A 12/30/21 12/30/21 16:47 16:47 WBC RDW Neut % (Auto) Lymph % (Auto) Lymph # (Auto) [place] # (Auto) Absolute Neutrophils PT INR POC Sodium Sodium 120 L Potassium POC Chloride Chloride 82 L Glucose 113 H POC Glucose Osmolality 256 L Calcium 8.0 L POC WB Ioniz Calcium Phosphorus 1.9 L Total Bilirubin 14.4 H Direct Bilirubin GGT AST 105 H ALT 63 H Alkaline Phosphatase 415 H Lactate Dehydrogenase Total Protein 5.7 L Albumin 2.8 L Urine Protein Urine Glucose (UA) Urine Ketones Urine Occult Blood Urine Bilirubin Ur Squamous Epith Cells Urine Mucus Meds: Medications Albuterol/Ipratropium (Ipratropium/Albuterol 3 Ml Ampul.Neb) 3 ml NEB Q4HP PRN PRN Reason: Shortness Of Breath Enoxaparin Sodium (Enoxaparin 40 Mg/0.4 Ml Syringe) 40 mg SQ DAILY [facility] Last Admin: 12/31/21 08:49 Dose: 40 mg Documented by: Furosemide (Furosemide 40 Mg/4 Ml Vial) 40 mg IV BIDD [facility] Last Admin: 12/31/21 08:50 Dose: 40 mg Documented by: Potassium Chloride 40 meq/ (Dextrose) 520 mls @ 130 mls/hr IV UD PRN PRN Reason: Potassium < 3 Magnesium Sulfate (Magnesium Sulfate) 2 gm in 50 mls @ 50 mls/hr IV UD PRN PRN Reason: Magnesium </= 1.6 Lactulose (Lactulose 20 Gm/30 Ml Oral.Josefina) 20 gm PO DAILYP PRN PRN Reason: Constipation Ondansetron HCl (Ondansetron 4 Mg/2 Ml Vial) 4 mg IV Q4HP PRN PRN Reason: Nausea And Vomiting Pentoxifylline (Pentoxifylline 400 Mg Tablet) 400 mg PO TID [facility] Last Admin: 12/31/21 08:51 Dose: 400 mg Documented by: Potassium Chloride (Potassium Chloride 20 Meq Tablet) 40 meq PO UD PRN PRN Reason: Potssium is 3-3.5 Potassium Chloride (Potassium Chloride 20 Meq Tablet) 40 meq PO UD PRN PRN Reason: Potassium < 3 Potassium/Phosphorus/Sodium (Neutra Phos 1 Packet) 2 packet PO BID [facility] Last Admin: 12/31/21 08:50 Dose: 2 packet Documented by: Prednisone (Prednisolone 15 Mg/5 Ml Oral Josefina) 30 mg PO DAILY [facility] Sodium Chloride (0.9 % Sodium Chloride 10 Ml Syringe) 10 ml IV Q8 [facility] Last Admin: 12/31/21 04:35 Dose: 10 ml Documented by: A/P Narrative A/P Narrative: A: *Hyponatremia: 2/2 cirrhosis -improving *recent diagnosis Acute alcoholic hepatitis: currently on glucocorticoids *Cirrhosis, alcoholic: w/mild coagulopathy & hyperbilirubinemia & hypoalbuminemia -MELD=27(20%mortality), Child-Mendez=class C (45%/35%) >> from last admission *Alcohol abuse: denies any since last admit *Hypokaleima/hypophos: *Leukocytosis: chronic, afebrile, nontoxic *Depression: *GERD: will stop *Chronic pain: P: -Per [employer] plush brusher >1500cc fluid restrict, Trental 400mg tid x 28days -Albumin/lasix IV -will d/c home aldactone and just continue lasix -prn paracenteisis -start 16-day prednisolone taper -if persistent hypotension develops will add midodrine -cont home lactulose -f/u closely with GI/diesel powerplant mechanic -mery gastroenterologistphone for patient to establish care [phone] -will stop home ppi given increased risk for SBP -Home medication reconciliation -ppx: Lovenox, f/u INR Full code Time Spent With Patient Time: Total time spent is greater than 50% in coordination of care (as documented) at patient's floor/unit and/or counseling patient:
[2021-12-31] MEDS: prednisoLONE 15 MG/5 ML ORAL SOL PO SCH (10:56)
[2021-12-31] MEDS: POTASSIUM CHLORIDE 20 MEQ TABLET PO SCH ×2 (10:56→17:34)
--- NOTE | 2021-12-31 12:25 | Discharge Summary ---
Discharge Provider Provider Patient information: Note initiated : 12/31/21 at 12:22 pm Service Date, if different from initiated Date: [] Patient: Berkley Elizalde 51 y/o F admitted on 12/30/21 for Low sodium. Chief Complaint: [] Date of admission: 12/30/21 21:05 Discharge date: 01/02/22 Primary care physician: Lencho Pandey Consults: 12/30/21 Consult to Physician [CONS] Stat Comment: Consulting Provider: Capo Rhodes Reason For Exam: Physician to Consult Discharge Meds Discharge Medications Home Medications multivitamin 1 tab PO DAILY 12/06/17 [History Confirmed 01/01/22 Last Taken 12/05/21] trazodone 50 mg tablet 50 mg PO QHS 03/10/21 [History Confirmed 01/01/22 Last Taken Unknown] duloxetine 60 mg capsule,delayed release (Cymbalta) 60 mg PO QDAY 12/06/21 [History Confirmed 01/01/22 Last Taken 12/05/21] furosemide 40 mg tablet 40 mg PO DAILY #60 tab 12/10/21 [Rx Confirmed 01/01/22 Last Taken Unknown] lactulose 20 gram/30 mL oral solution 30 ml PO QIDP PRN #1200 ml 12/10/21 [Rx Confirmed 01/01/22 Last Taken Unknown] pentoxifylline 400 mg tablet,extended release 400 mg PO TID #75 tab 12/31/21 [Rx Last Taken Unknown] prednisolone sodium phosphate 20 mg/5 mL (4 mg/mL) oral solution 40 mg (10 mL) PO QDAY #237 ml 12/31/21 [Rx Last Taken Unknown] potassium chloride 20 mEq oral packet 20 meq PO BID #4 ea 01/02/22 [Rx Last Taken Unknown] sodium di- and monophosphate-potassium phos monobasic 250 mg tablet (T-Cepx-Oyiabgd) 1 tab PO BID #4 tab 01/02/22 [Rx Last Taken Unknown] COURSE Hospital Course Hospital course: Interval history: Review of Systems: denies headache/fever/chills/nausea/vomiting/chest or abdominal pain/cough/dyspnea/diarrhea. Otherwise see above.Ms. Elizalde is a 51 year old F Admitted a month ago for alcoholic hepatitis and hyponatremia and ascites. She received paracentesis and glucocorticoids for alcoholic hepatitis. Treatment for hyponatremia. Patient was instructed to follow-up closely with counseling center manager/broomcorn sorter but has not been able find counseling center manager yet. She reported but present today because of follow-up labs which showed a low sodium of 120. She has no new complaints. Case discussed with counseling center manager [place] who recommended starting her on Trental correcting her sodium and fluid restricting 1500 cc/day and follow-up closely with GI. Goal here is to improve her sodium as much as possible and have her follow-up closely with GI. If she presents back to the ED for the same thing again before she has seen a counseling center manager it would be pointless to admit her here as she most certainly needs to see a specialist and should be admitted where they have a counseling center manager who can subsequently follow her outpatient. In the ED on the and did have a paracentesis in the ED. She denies any alcohol use since last discharge. 3/3 Feeling a little better today. Sodium gradually improving. Potassium mildly low. 3/4 To needs to feel better. Abdomen a little bit more distended. Will get paracentesis before discharge. Instructed to follow-up closely with counseling center manager/broomcorn sorter. Patient high risk for readmission given comorbidities including alcoholic cirrhosis liver disease. If patient presents back to the ED before she is seen by counseling center manager she needs to be transferred where a counseling center manager can see her given her complexity and recurrent admissions related to cirrhosis and need to establish with a counseling center manager. A: *Hyponatremia: 2/2 cirrhosis *recent diagnosis Acute alcoholic hepatitis: currently on glucocorticoids *Cirrhosis, alcoholic: w/mild coagulopathy & hyperbilirubinemia & hypoalbuminemia -MELD=27(20%mortality), Child-Mendez=class C (45%/35%) >> from last admission *Alcohol abuse: denies any since last admit *Hypokaleima/hypophos: *Leukocytosis: chronic, afebrile, nontoxic *Depression: *GERD: will stop *Chronic pain: P: -Per [place] counseling center manager >1500cc fluid restrict, Trental 400mg tid [id number] -will d/c home aldactone and just continue lasix -prn paracenteisis -started 16-day prednisolone taper -cont home lactulose -f/u closely with GI/broomcorn sorter -mery gastroenterologistphone for patient to establish care [phone] -will stop home ppi given increased risk for SBP Discharge diagnosis: Hyponatremia from cirrhosis alcoholic cirrhosis Secondary discharge diagnosis: Chief alcohol abuse electrolyte abnormalities chronic leukocytosis depression GERD chronic pain Time Spent with Patient Time attestation: Total time spent providing and/or coordinating discharge services: Time spent: Greater than 30 minutes EXAM Constitutional Vitals: Temp Pulse Resp BP Pulse Ox 96.9 F L 119 H 14 124/84 97 12/31/21 08:12 12/31/21 08:12 12/31/21 08:12 12/31/21 08:12 12/31/21 08:12 Discharge Data Data Completed and Pending Labs on day of discharge: Labs from last 24 hours 12/31/21 12/31/21 12/31/21 05:12 05:12 00:40 WBC RBC Hgb Hct POC Hct 48 MCV MCH MCHC RDW Plt Count MPV Neut % (Auto) Lymph % (Auto) [place] % (Auto) Eos % (Auto) Baso % (Auto) Lymph # (Auto) [place] # (Auto) Eos # (Auto) Baso # (Auto) Absolute Neutrophils PT 19.4 H INR 1.6 H POC Sodium 124 L Sodium 123 L POC Potassium 4.0 Potassium 3.0 L POC Chloride 89 L Chloride 88 L Carbon Dioxide 25 POC Total CO2 26 Anion Gap 10.0 POC BUN 7 BUN 6 Creatinine TNP POC Creatinine 0.6 GFR Calculation TNP Glucose 104 POC Glucose 144 H Osmolality Uric Acid 2.6 Calcium 7.6 L POC WB Ioniz Calcium 0.87 L Phosphorus 2.1 L Magnesium 1.7 Total Bilirubin 13.3 H Direct Bilirubin 9.2 H GGT 362 H AST 80 H ALT 49 H Alkaline Phosphatase 349 H Ammonia Lactate Dehydrogenase 308 H Total Protein 5.3 L Albumin 2.9 L Globulin 2.4 Albumin/Globulin Ratio 1.2 Triglycerides 104 Urine Color Urine Appearance Urine pH Ur Specific Wing Urine Protein Urine Glucose (UA) Urine Ketones Urine Occult Blood Urine Nitrate Urine Bilirubin Urine Urobilinogen Ur Leukocyte Esterase Urine RBC Urine WBC Ur Squamous Epith Cells Urine Bacteria Urine Mucus Ur Culture Indicated? Urine Osmolality Ur Random Sodium Ethyl Alcohol 12/30/21 12/30/21 12/30/21 20:19 17:08 17:08 WBC RBC Hgb Hct POC Hct 44 MCV MCH MCHC RDW Plt Count MPV Neut % (Auto) Lymph % (Auto) [place] % (Auto) Eos % (Auto) Baso % (Auto) Lymph # (Auto) [place] # (Auto) Eos # (Auto) Baso # (Auto) Absolute Neutrophils PT INR POC Sodium 126 L Sodium POC Potassium 3.6 Potassium POC Chloride 89 L Chloride Carbon Dioxide POC Total CO2 25 Anion Gap POC BUN 7 BUN Creatinine POC Creatinine 0.6 GFR Calculation Glucose POC Glucose 83 Osmolality Uric Acid Calcium POC WB Ioniz Calcium 0.96 L Phosphorus Magnesium Total Bilirubin Direct Bilirubin GGT AST ALT Alkaline Phosphatase Ammonia Lactate Dehydrogenase Total Protein Albumin Globulin Albumin/Globulin Ratio Triglycerides Urine Color Lani Urine Appearance Clear Urine pH 5.5 Ur Specific Wing 1.025 Urine Protein 30 mg/dl A Urine Glucose (UA) 100 mg/dl A Urine Ketones 15 mg/dl A Urine Occult Blood Trace-intact A Urine Nitrate Negative Urine Bilirubin Large A Urine Urobilinogen Normal Ur Leukocyte Esterase Negative Urine RBC 1 Urine WBC 3 Ur Squamous Epith Cells 12 H Urine Bacteria None Urine Mucus Many A Ur Culture Indicated? No Urine Osmolality 642 Ur Random Sodium Ethyl Alcohol 12/30/21 12/30/21 12/30/21 17:08 16:48 16:47 WBC 17.1 H RBC 3.94 Hgb 13.3 Hct 38.8 POC Hct MCV 98.5 MCH 33.8 MCHC 34.3 RDW 17.2 H Plt Count 180 MPV 9.9 Neut % (Auto) 86.5 H Lymph % (Auto) 7.5 L [place] % (Auto) 5.4 Eos % (Auto) 0.4 Baso % (Auto) 0.2 Lymph # (Auto) 1.29 L [place] # (Auto) 0.92 H Eos # (Auto) 0.07 Baso # (Auto) 0.04 Absolute Neutrophils 14.78 H PT INR POC Sodium Sodium POC Potassium Potassium POC Chloride Chloride Carbon Dioxide POC Total CO2 Anion Gap POC BUN BUN Creatinine POC Creatinine GFR Calculation Glucose POC Glucose Osmolality Uric Acid Calcium POC WB Ioniz Calcium Phosphorus 1.9 L Magnesium 1.8 Total Bilirubin Direct Bilirubin GGT AST ALT Alkaline Phosphatase Ammonia Lactate Dehydrogenase Total Protein Albumin Globulin Albumin/Globulin Ratio Triglycerides Urine Color Urine Appearance Urine pH Ur Specific Wing Urine Protein Urine Glucose (UA) Urine Ketones Urine Occult Blood Urine Nitrate Urine Bilirubin Urine Urobilinogen Ur Leukocyte Esterase Urine RBC Urine WBC Ur Squamous Epith Cells Urine Bacteria Urine Mucus Ur Culture Indicated? Urine Osmolality Ur Random Sodium 10 Ethyl Alcohol 0312/30/21 12/30/21 16:47 16:47 16:47 WBC RBC Hgb Hct POC Hct MCV MCH MCHC RDW Plt Count MPV Neut % (Auto) Lymph % (Auto) [place] % (Auto) Eos % (Auto) Baso % (Auto) Lymph # (Auto) [place] # (Auto) Eos # (Auto) Baso # (Auto) Absolute Neutrophils PT INR POC Sodium Sodium 120 L POC Potassium Potassium 3.8 POC Chloride Chloride 82 L Carbon Dioxide 23 POC Total CO2 Anion Gap 15.0 POC BUN BUN 8 Creatinine TNP POC Creatinine GFR Calculation TNP Glucose 113 H POC Glucose Osmolality 256 L Uric Acid Calcium 8.0 L POC WB Ioniz Calcium Phosphorus Magnesium Total Bilirubin 14.4 H Direct Bilirubin GGT AST 105 H ALT 63 H Alkaline Phosphatase 415 H Ammonia 36 Lactate Dehydrogenase Total Protein 5.7 L Albumin 2.8 L Globulin 2.9 Albumin/Globulin Ratio 1.0 Triglycerides Urine Color Urine Appearance Urine pH Ur Specific Wing Urine Protein Urine Glucose (UA) Urine Ketones Urine Occult Blood Urine Nitrate Urine Bilirubin Urine Urobilinogen Ur Leukocyte Esterase Urine RBC Urine WBC Ur Squamous Epith Cells Urine Bacteria Urine Mucus Ur Culture Indicated? Urine Osmolality Ur Random Sodium Ethyl Alcohol < 0.010 Discharge Plan Patient/Caregiver Discharge Instructions Activity: increase activity as tolerated Diet: Regular Diet Instructions: Alcoholic Hepatitis (ED) Activity Restrictions/Additional Instructions: Continue prednisolone taper as per home prescription, currently on 1 more day of the 30mg dose. *Important establish care with a counseling center manager mery SANTOS gastroenterologistphone for patient to establish care [phone] Prescriptions: New pentoxifylline 400 mg Tablet Extended Release 400 mg PO TID Qty: 75 0RF I-Oooh-Lqsabzt 250 mg tablet 1 tab PO BID Qty: 4 0RF potassium chloride 20 mEq packet 20 meq PO BID Qty: 4 0RF Continued multivitamin tablet 1 tab PO DAILY 0RF Label Comments: PO trazodone 50 mg tablet 50 mg PO QHS 0RF duloxetine [Cymbalta] 60 mg Capsule,Delayed Release(Dr/Ec) 60 mg PO QDAY 0RF furosemide 40 mg Tablet 40 mg PO DAILY Qty: 60 3RF lactulose 20 gram/30 mL Solution 30 ml PO QIDP PRN (Reason: CONSTIPATION) Qty: 1200 3RF Rx Instructions: Take as needed for 2-3 loose bowel movements per day. prednisolone sodium phosphate 20 mg/5 mL (4 mg/mL) solution 40 mg PO QDAY Qty: 237 1RF Rx Instructions: 30 mg daily for 2 days followed by 20 mg daily for 4 days followed by 10 mg daily for 4 days followed by 5 mg daily for 4 days then discontinue. Discontinued lansoprazole [Prevacid] 30 mg Capsule,Delayed Release(Dr/Ec) 30 mg PO QDAY 0RF spironolactone 25 mg Tablet 100 mg PO DAILY Qty: 90 4RF Follow Up Plan Follow up with: Lencho Pandey DO [Primary Care Provider] - Patient Disposition: Home, Self-Care Prognosis: Serious Overall status at discharge: patient is progressing back to baseline Discharge Orders: Discharge Order (Routine); Ordered 01/02/22 Ordered By: Capo Rhodes
[2021-12-31 18:02] LABS: Blood Urea Nitrogen 5 mg/dL (6-20); Calcium 7.8 mg/dL (8.6-10.4); Carbon Dioxide 27 mmol/L (22-30); Chloride 85 mmol/L (96-108); Glomerular Filtration Rate 112; Glucose 129 mg/dL (70-105)
[2021-12-31 18:03] LABS: Phosphorous 1.8 mg/dL (2.5-4.5)
[2021-12-31] MEDS ORDERED: POTASSIUM PHOSPHATE 40 MEQ in DEXTROSE 5% IN WATER 500 ML IV ONE (19:18)
[2021-12-31] MEDS ORDERED: POTASSIUM PHOSPHATE 40 MEQ in 0.9 % SODIUM CHLORIDE 500 ML IV ONE (19:21)
[2021-12-31] MEDS ORDERED: SODIUM CHLORIDE 3 % 100 ML IV ONE (19:30)
[2021-12-31] MEDS ORDERED: POTASSIUM PHOSPHATE 66 MEQ/15 ML VIAL IV ONE (20:59)
[2022-01-01] MEDS: 0.9 % SODIUM CHLORIDE 10 ML SYRINGE IV SCH ×3 (05:06→21:07)
[2022-01-01 07:20] LABS: ALT/SGPT 44 U/L (<40); AST/SGOT 70 U/L (<32); Albumin 2.9 gm/dL (3.2-5.2); Albumin/Globulin Ratio 1.3 (1.0-2.3); Alkaline Phosphatase 337 U/L (39-117); Bilirubin,Direct 8.7 mg/dL (<0.3); Bilirubin,Total 12.6 mg/dL (0.1-1.0); Blood Urea Nitrogen 5 mg/dL (6-20); Calcium 7.5 mg/dL (8.6-10.4); Carbon Dioxide 25 mmol/L (22-30); Chloride 91 mmol/L (96-108); Globulin 2.3 gm/dL (2.2-3.7); Glucose 90 mg/dL (70-105); Lactate Dehydrogenase 311 U/L (135-225); Phosphorous 2.2 mg/dL (2.5-4.5); Triglycerides 98 mg/dL (<150); Uric Acid 2.2 mg/dL (2.5-8.0)
[2022-01-01 07:38] LABS: INR 1.6 (0.9-1.1); Prothrombin Time 19.8 sec (11.9-14.5)
[2022-01-01] MEDS ORDERED: ALBUMIN HUMAN 12.5 GM/50 ML BAG IV ONE (08:22)
--- NOTE | 2022-01-01 08:23 | Internal Med Progress Note ---
SUBJECTIVE Subjective Patient information: Note initiated : 01/01/22 at 8:21 am Service Date, if different from initiated Date: [] Patient: Berkley Elizalde 51 y/o F admitted on 12/30/21 for Low sodium. Chief Complaint: [] Interval history: Review of Systems: denies headache/fever/chills/nausea/vomiting/chest or abdominal pain/cough/dyspnea/diarrhea. Otherwise see above.Ms. Elizalde is a 51 year old F Admitted a month ago for alcoholic hepatitis and hyponatremia and ascites. She received paracentesis and glucocorticoids for alcoholic hepatitis. Treatment for hyponatremia. Patient was instructed to follow-up closely with sole blacker/cash reconciliation specialist but has not been able find sole blacker yet. She reported but present today because of follow-up labs which showed a low sodium of 120. She has no new complaints. Case discussed with sole blacker [place] who recommended starting her on Trental correcting her sodium and fluid restricting 1500 cc/day and follow- up closely with GI. Goal here is to improve her sodium as much as possible and have her follow-up closely with GI. If she presents back to the ED for the same thing again before she has seen a sole blacker it would be pointless to admit her here as she most certainly needs to see a specialist and should be admitted where they have a sole blacker who can subsequently follow her outpatient. In the ED on the and did have a paracentesis in the ED. She denies any alcohol use since last discharge. 3/3 Feeling a little better today. Sodium gradually improving. Potassium mildly low. 3/4 Patient continues to feel better. Diuresing well. Still significant electrolyte abnormalities. And still peripheral edema. Likely 1 more day of IV diuresis and electrolyte replacement and probable discharge tomorrow. Sodium improved. Review of Systems: denies headache/fever/chills/nausea/vomiting/chest or abdominal pain/cough/dyspnea. Otherwise see above. Constitutional Vitals: Vital Signs Temp Pulse Resp BP Pulse Ox 97.5 F 115 H 18 118/76 96 01/01/22 03:59 01/01/22 03:59 01/01/22 03:59 01/01/22 03:59 01/01/22 03:59 Period Temp Pulse Resp BP Sys/[place] Pulse Ox Last 24 Hr 96.9 F-98.6 F 32-119 14-20 111-140/75-88 95-99 Intake and Output 12/31/21 01/01/22 01/01/22 21:59 05:59 13:59 Intake Total 782 771.5632 Output Total 1200 1200 Balance -350 -230.9091 Weight 65.453 kg Intake & Output: Intake & Output 12/31/21 01/01/22 01/01/22 21:59 05:59 13:59 Intake Total 467 983.0912 Output Total 1200 1200 Balance -350 -230.9091 Weight 65.453 kg Intake: IV 50 609.0909 Potassium Phosphate 40 Meq In 509.0909 Sodium Chloride 0.9% 500 ml @ 127.273 mls/hr IV ONCE ONE Rx#: [id number] Sodium Chloride 3% 100 ml @ 25 100 mls/hr IV ONCE ONE Rx#: [id number] Oral 400 360 GI Tube Flush 400 Output: Void Amount 1200 1200 Other: Urine Appearance Clear Urine Color Light Lani Light Lani Urine Odor Strong Stool Size Moderate Stool Color Brown Stool Consistency Soft Exam: General: Alert, Awake, No acute Distress Eyes/N/T: EOMI,scleral icterus Head/Neck: neck supple, CV: Tacky but regular, No murmurs, Pulm: Clear b/l, no wheezing/rhonchi/rales Abd: soft, mildly distended, nontender, +BS x4 Ext: no clubbing/cyanosis, 2+ b/l LE edema Neuro: Alert, no focal deficits, moves all extremities, Skin: warm/dry, jaundice OBJ DATA Labs CBC & Chem 7: 12/30/21 16:48 01/01/22 05:19 Labs: Abnormal Lab Results 01/01/22 01/01/22 12/31/21 05:19 05:19 17:04 WBC RDW Neut % (Auto) Lymph % (Auto) Lymph # (Auto) [place] # (Auto) Absolute Neutrophils PT 19.8 H INR 1.6 H POC Sodium Sodium 129 L 124 L Potassium 3.0 L 3.0 L POC Chloride Chloride 91 L 85 L BUN 5 L 5 L Creatinine 0.5 L Glucose 129 H POC Glucose Osmolality Uric Acid 2.2 L Calcium 7.5 L 7.8 L POC WB Ioniz Calcium Phosphorus 2.2 L 1.8 L Magnesium 1.5 L Total Bilirubin 12.6 H Direct Bilirubin 8.7 H GGT 344 H AST 70 H ALT 44 H Alkaline Phosphatase 337 H Lactate Dehydrogenase 311 H Total Protein 5.2 L Albumin 2.9 L Urine Protein Urine Glucose (UA) Urine Ketones Urine Occult Blood Urine Bilirubin Ur Squamous Epith Cells Urine Mucus 12/31/21 12/31/21 12/31/21 05:12 05:12 00:40 WBC RDW Neut % (Auto) Lymph % (Auto) Lymph # (Auto) [place] # (Auto) Absolute Neutrophils PT 19.4 H INR 1.6 H POC Sodium 124 L Sodium 123 L Potassium 3.0 L POC Chloride 89 L Chloride 88 L BUN Creatinine Glucose POC Glucose 144 H Osmolality Uric Acid Calcium 7.6 L POC WB Ioniz Calcium 0.87 L Phosphorus 2.1 L Magnesium Total Bilirubin 13.3 H Direct Bilirubin 9.2 H GGT 362 H AST 80 H ALT 49 H Alkaline Phosphatase 349 H Lactate Dehydrogenase 308 H Total Protein 5.3 L Albumin 2.9 L Urine Protein Urine Glucose (UA) Urine Ketones Urine Occult Blood Urine Bilirubin Ur Squamous Epith Cells Urine Mucus 12/30/21 12/30/21 12/30/21 20:19 17:08 16:48 WBC 17.1 H RDW 17.2 H Neut % (Auto) 86.5 H Lymph % (Auto) 7.5 L Lymph # (Auto) 1.29 L [place] # (Auto) 0.92 H Absolute Neutrophils 14.78 H PT INR POC Sodium 126 L Sodium Potassium POC Chloride 89 L Chloride BUN Creatinine Glucose POC Glucose Osmolality Uric Acid Calcium POC WB Ioniz Calcium 0.96 L Phosphorus Magnesium Total Bilirubin Direct Bilirubin GGT AST ALT Alkaline Phosphatase Lactate Dehydrogenase Total Protein Albumin Urine Protein 30 mg/dl A Urine Glucose (UA) 100 mg/dl A Urine Ketones 15 mg/dl A Urine Occult Blood Trace-intact A Urine Bilirubin Large A Ur Squamous Epith Cells 12 H Urine Mucus Many A 12/30/21 12/30/21 16:47 16:47 WBC RDW Neut % (Auto) Lymph % (Auto) Lymph # (Auto) [place] # (Auto) Absolute Neutrophils PT INR POC Sodium Sodium 120 L Potassium POC Chloride Chloride 82 L BUN Creatinine Glucose 113 H POC Glucose Osmolality 256 L Uric Acid Calcium 8.0 L POC WB Ioniz Calcium Phosphorus 1.9 L Magnesium Total Bilirubin 14.4 H Direct Bilirubin GGT AST 105 H ALT 63 H Alkaline Phosphatase 415 H Lactate Dehydrogenase Total Protein 5.7 L Albumin 2.8 L Urine Protein Urine Glucose (UA) Urine Ketones Urine Occult Blood Urine Bilirubin Ur Squamous Epith Cells Urine Mucus Meds: Medications Albuterol/Ipratropium (Ipratropium/Albuterol 3 Ml Ampul.Neb) 3 ml NEB Q4HP PRN PRN Reason: Shortness Of Breath Enoxaparin Sodium (Enoxaparin 40 Mg/0.4 Ml Syringe) 40 mg SQ DAILY [facility] Last Admin: 12/31/21 08:49 Dose: 40 mg Documented by: Furosemide (Furosemide 40 Mg/4 Ml Vial) 40 mg IV BIDD [facility] Last Admin: 12/31/21 16:32 Dose: 40 mg Documented by: Potassium Chloride 40 meq/ (Dextrose) 520 mls @ 130 mls/hr IV UD PRN PRN Reason: Potassium < 3 Magnesium Sulfate (Magnesium Sulfate) 2 gm in 50 mls @ 50 mls/hr IV UD PRN PRN Reason: Magnesium </= 1.6 Lactulose (Lactulose 20 Gm/30 Ml Oral.Josefina) 20 gm PO DAILYP PRN PRN Reason: Constipation Ondansetron HCl (Ondansetron 4 Mg/2 Ml Vial) 4 mg IV Q4HP PRN PRN Reason: Nausea And Vomiting Pentoxifylline (Pentoxifylline 400 Mg Tablet) 400 mg PO TID [facility] Last Admin: 12/31/21 20:16 Dose: 400 mg Documented by: Potassium Chloride (Potassium Chloride 20 Meq Tablet) 40 meq PO UD PRN PRN Reason: Potssium is 3-3.5 Potassium Chloride (Potassium Chloride 20 Meq Tablet) 40 meq PO UD PRN PRN Reason: Potassium < 3 Potassium Chloride (Potassium Ch[facility] 20 [facility]t) [facility]: 01/01/22 17:31 Last Admin: 12/31/21 17:34 Dose: 40 meq Documented by: Potassium/Phosphorus/Sodium (Neutra Phos 1 Packet) 2 packet PO BID [facility] Last Admin: 12/31/21 20:20 Dose: 2 packet Documented by: Prednisone (Prednisolone 15 Mg/5 Ml Oral Josefina) 30 mg PO DAILY [facility] Stop: 01/03/22 09:01 Last Admin: 12/31/21 10:56 Dose: 30 mg Documented by: Prednisone (Prednisolone 15 Mg/5 Ml Oral Josefina) 20 mg PO DAILY [facility] Stop: 01/07/22 09:01 Prednisone (Prednisolone 15 Mg/5 Ml Oral Josefina) 10 mg PO DAILY [facility] Stop: 01/11/22 09:01 Prednisone (Prednisolone 15 Mg/5 Ml Oral Josefina) 5 mg PO DAILY [facility] Stop: 01/15/22 09:01 Sodium Chloride (0.9 % Sodium Chloride 10 Ml Syringe) 10 ml IV Q8 [facility] Last Admin: 01/01/22 05:06 Dose: 10 ml Documented by: A/P Sebastian A/P Narrative: A: *Hyponatremia: 2/2 cirrhosis -improving *recent diagnosis Acute alcoholic hepatitis: currently on glucocorticoids *Cirrhosis, alcoholic: w/mild coagulopathy & hyperbilirubinemia & hypoal buminemia -MELD=27(20%mortality), Child-Mendez=class C (45%/35%) >> from last admission *Alcohol abuse: denies any since last admit *Volume overload/Peripheral edema: *Hypokaleima/hypophos/hypomag: *Leukocytosis: chronic, afebrile, nontoxic *Depression: *GERD: will stop *Chronic pain: P: -Per [place] sole blacker >1500cc fluid restrict, Trental 400mg tid [id number] -Albumin/lasix IV -will d/c home aldactone and just continue lasix -prn paracenteisis -started 16-day prednisolone taper -Replace electrolytes -if a persistent hypotension develops will add midodrine -cont home lactulose -f/u closely with GI/cash reconciliation specialist -mery gastroenterologistphone for patient to establish care [phone] -will stop home ppi given increased risk for SBP -Home medication reconciliation -ppx: Lovenox, f/u INR Full code Time Spent With Patient Time: Total time spent is greater than 50% in coordination of care (as documented) at patient's floor/unit and/or counseling patient:
[2022-01-01] MEDS ORDERED: MAGNESIUM SULFATE 2 GM/50 ML BAG IV ONE (08:24)
[2022-01-01] MEDS: FUROSEMIDE 40 MG/4 ML VIAL IV SCH ×2 (08:44→16:56)
[2022-01-01] MEDS: POTASSIUM CHLORIDE 20 MEQ TABLET PO SCH ×2 (08:44→16:57)
[2022-01-01] MEDS: ENOXAPARIN 40 MG/0.4 ML SYRINGE SQ SCH (08:45)
[2022-01-01] MEDS: NEUTRA PHOS 1 PACKET PO SCH ×2 (08:45→21:06)
[2022-01-01] MEDS: prednisoLONE 15 MG/5 ML ORAL SOL PO SCH (08:45)
[2022-01-01] MEDS: PENTOXIFYLLINE 400 MG TABLET PO SCH ×3 (08:46→21:06)
[2022-01-01] MEDS ORDERED: POTASSIUM PHOSPHATE 40 MEQ in 0.9 % SODIUM CHLORIDE 500 ML IV ONE (09:00)
[2022-01-01 18:27] LABS: Blood Urea Nitrogen 4 mg/dL (6-20); Calcium 7.5 mg/dL (8.6-10.4); Carbon Dioxide 26 mmol/L (22-30); Chloride 91 mmol/L (96-108); Glomerular Filtration Rate 112; Glucose 119 mg/dL (70-105); Phosphorous 2.4 mg/dL (2.5-4.5)
[2022-01-01] MEDS ORDERED: POTASSIUM CHLORIDE 20 MEQ TABLET PO ONE (18:56)
[2022-01-01] MEDS ORDERED: PHOSPHORUS 250 MG TABLET PO ONE (18:56)
[2022-01-01] MEDS ORDERED: traZODone HCL 50 MG TABLET ONE (22:23)
[2022-01-02] MEDS: 0.9 % SODIUM CHLORIDE 10 ML SYRINGE IV SCH (04:47)
[2022-01-02 07:02] LABS: INR 1.6 (0.9-1.1); Prothrombin Time 19.5 sec (11.9-14.5)
[2022-01-02 07:26] LABS: ALT/SGPT 46 U/L (<40); AST/SGOT 70 U/L (<32); Albumin 3.2 gm/dL (3.2-5.2); Albumin/Globulin Ratio 1.6 (1.0-2.3); Alkaline Phosphatase 356 U/L (39-117); Bilirubin,Direct 8.7 mg/dL (<0.3); Bilirubin,Total 13.2 mg/dL (0.1-1.0); Blood Urea Nitrogen 5 mg/dL (6-20); Calcium 7.9 mg/dL (8.6-10.4); Carbon Dioxide 28 mmol/L (22-30); Chloride 91 mmol/L (96-108); Glucose 112 mg/dL (70-105); Lactate Dehydrogenase 325 U/L (135-225); Phosphorous 1.6 mg/dL (2.5-4.5); Triglycerides 103 mg/dL (<150); Uric Acid 2.3 mg/dL (2.5-8.0)
[2022-01-02] MEDS ORDERED: ALBUMIN HUMAN 12.5 GM/50 ML BAG IV ONE (07:42)
[2022-01-02] MEDS ORDERED: FUROSEMIDE 40 MG/4 ML VIAL IV ONE (07:42)
[2022-01-02] MEDS ORDERED: NEUTRA PHOS 1 PACKET PO ONE (07:43)
[2022-01-02] MEDS ORDERED: PHOSPHORUS 250 MG TABLET PO ONE (07:43)
[2022-01-02] MEDS ORDERED: POTASSIUM PHOSPHATE 40 MEQ in DEXTROSE 5% IN WATER 500 ML IV ONE (07:43)
[2022-01-02] MEDS: ENOXAPARIN 40 MG/0.4 ML SYRINGE SQ SCH (08:13)
[2022-01-02] MEDS: PENTOXIFYLLINE 400 MG TABLET PO SCH (08:14)
[2022-01-02] MEDS: NEUTRA PHOS 1 PACKET PO SCH (08:14)
[2022-01-02] MEDS: prednisoLONE 15 MG/5 ML ORAL SOL PO SCH (08:43)
--- NOTE | 2022-01-02 14:29 | Ultrasound Report ---
History: Cirrhosis with ascites FINDINGS: There is a moderate amount of ascites throughout the abdomen. No mass is identified. The patient had been scheduled for paracentesis. However, she was unwilling to wait for me to arrive in the hospital and she left the hospital against medical advise. She told the technologist that she would come back as an outpatient for the procedure. IMPRESSION: Moderate amount of ascites Interpreted and Authenticated by: Zeyad Shaffer 01/02/22
[2022-01-02] MEDS ORDERED: traZODone HCL 50 MG TABLET PO SCH (21:00)
[2022-01-02] MEDS ORDERED: PANTOPRAZOLE 40 MG TABLET PO SCH (21:00)
[2022-01-04] MEDS ORDERED: prednisoLONE 15 MG/5 ML ORAL SOL PO SCH (09:00)
[2022-01-08] MEDS ORDERED: prednisoLONE 15 MG/5 ML ORAL SOL PO SCH (09:00)
[2022-01-12] MEDS ORDERED: prednisoLONE 15 MG/5 ML ORAL SOL PO SCH (09:00)
== END 2022-01-02 12:45 | disposition home or self-care (01) | DRG 641 ==
LOC: ED 16:30 → MEDSUR 21:05
PROVIDERS: ADMIT Internal Medicine; ATTEND Internal Medicine

== ENCOUNTER 2022-03-03 11:40 | Inpatient (IN) ==
--- NOTE | 2022-03-03 11:51 | Emergency Department Note ---
HPI General Chief complaint: Recheck/Abnormal Lab/Rx Stated complaint: Low Sodium Time Seen by Provider: 03/03/22 11:51 Source: patient Mode of arrival: ambulatory Limitations: no limitations History of Present Illness HPI Narrative: 51-year-old female with past medical history of alcoholic cirrhosis presenting with hyponatremia. Patient had a therapeutic paracentesis yesterday with 3.4 L of fluid removed. Prior to her paracentesis she had labs drawn which came back today showing a sodium level of 112 so she was instructed to come to the ED. On review of records patient has had hyponatremia in the past but usually in the mid to high 120s. She is on lactulose, spironolactone, and furosemide. She denies fever, vomiting, diarrhea, abdominal pain, or urinary complaints. She does not drink alcohol anymore. She has an appointment with Dr. Pollock of GI next week. States she felt much better after the paracentesis and after receiving albumin but states today she just feels a little "off". No other co mplaints at this time. Related Data Home Medications Medication Instructions Recorded Confirmed multivitamin 1 tab PO DAILY 12/06/17 03/03/22 trazodone 50 mg tablet 50 mg PO QHS 03/10/21 03/03/22 duloxetine 60 mg capsule,delayed 60 mg PO QDAY 12/06/21 03/03/22 release (Cymbalta) spironolactone 50 mg tablet 50 mg PO QDAY 02/25/22 03/03/22 cephalexin 500 mg capsule 1 cap PO QID 03/03/22 03/03/22 metoprolol succinate 25 mg 0.5 tab PO QDAY 03/03/22 03/03/22 tablet,extended release 24 hr mirtazapine 15 mg tablet 1 tab PO HS 03/03/22 03/03/22 oxycodone 5 mg tablet 1 tab PO BIDP PRN 03/03/22 03/03/22 Previous Rx's Medication Instructions Recorded furosemide 40 mg tablet 40 mg PO DAILY #60 tab 12/10/21 lactulose 20 gram/30 mL oral 30 ml PO QIDP PRN #1200 ml 12/10/21 solution pentoxifylline 400 mg 400 mg PO TID #75 tab 12/31/21 tablet,extended release potassium chloride 20 mEq oral 20 meq PO BID #4 ea 01/02/22 packet sodium di- and 1 tab PO BID #4 tab 01/02/22 monophosphate-potassium phos monobasic 250 mg tablet ([id number]) Allergies Allergy/AdvReac Type Severity Reaction Status Date / Time rizatriptan [From Maxalt] AdvReac Mild felt weird Verified 03/03/22 11:45 Review of Systems ROS ROS Narrative: Narrative: Constitutional: Denies fever or chills Eyes: Denies vision change ENT ED: Denies throat pain Cardiovascular: Denies chest pain Respiratory: Denies shortness of breath or cough Gastrointestinal: Denies abdominal pain, nausea, vomiting or diarrhea Genitourinary: Denies dysuria or hematuria Musculoskeletal: Denies back pain Integumentary: Denies rash Neurological: Denies headache or weakness Psychiatric: Denies anxiety Hematological/Lymphatic: Reports easy bruising PFSH Narrative Patient History Narrative: Narrative: Medical/Surgical/Family History All Active Problems (Updated 03/03/22 @ 14:20 by Bob Arreola MD) Alcoholic cirrhosis of liver with ascites (Acute) Hyponatremia (Acute) Abdominal ascites (Acute) Hyponatremia (Acute) Alcoholic hepatitis (Acute) Ascites (Acute) Alcoholic cirrhosis of liver (Acute) Hyponatremia (Acute) History of tobacco use (Chronic) Insomnia (Chronic) Lumbar radiculopathy (Chronic) Chronic pain (Chronic) Disorder of gallbladder (Chronic) Gastroenteritis (Acute) Acute dehydration (Acute) Elevated aldolase level (Acute) Paresthesia (Acute) Back pain (Acute) Polyarthralgia (Chronic) Rheumatoid factor positive (Chronic) Elevated liver enzymes (Chronic) Steatosis of liver (Chronic) Arthritis (Chronic) Arthralgia (Chronic) Hormonal disorder (Chronic) Anxiety (Chronic) Heartburn (Chronic) Weight loss (Chronic) Indigestion (Chronic) Abdominal pain (Chronic) HTN (hypertension) (Chronic) GERD without esophagitis (Chronic) Generalized anxiety disorder (Chronic) Depression (Chronic) Fatigue (Chronic) Feeling poorly (Chronic) Dysphagia (Chronic) Headache (Chronic) Joint pain (Chronic) Lack of appetite (Chronic) Nausea & vomiting (Acute) Rheumatoid arthritis (Chronic) Medical History Abdominal pain Acute dehydration Anxiety Arthralgia Arthritis Back pain Chronic pain Depression Disorder of gallbladder Dysphagia Elevated aldolase level Elevated liver enzymes Fatigue Feeling poorly Gastroenteritis Generalized anxiety disorder GERD without esophagitis Headache Heartburn History of tobacco use 30 year use - quit 2014 Hormonal disorder hormonal changes HTN (hypertension) Indigestion Insomnia Joint pain Lack of appetite Low back pain Lumbar radiculopathy Nausea & vomiting Paresthesia Polyarthralgia Rheumatoid arthritis Rheumatoid factor positive Steatosis of liver Weight loss Surgical History History of esophagogastroduodenoscopy (EGD) (11/22/17) History of laparoscopic cholecystectomy (02/09/18) Family History Mother Malignant neoplasm of lung Hypertension Alcohol abuse Sister Malignant neoplasm of lung Alcohol abuse Hypertension Father Alcohol abuse Social History Smoking Status: Former smoker Alcohol Intake Frequency: former alcohol drinker Substance Use: does not use Exam Narrative Narrative: Narrative: General Limitations: no limitations General appearance: Present alert and in no apparent distress Head Head: Present atraumatic and normocephalic Eye Eye: Present normal appearance, PERRL, EOMI and scleral icterus; Absent conjunctival injection ENT ENT: Present normal oropharynx and mucous membranes moist Neck Neck: Present normal inspection, full ROM and trachea midline; Absent lymphadenopathy Chest Chest: Present symmetric chest wall rise Respiratory Respiratory: Present normal lung sounds bilaterally; Absent respiratory distress, wheezes, stridor, accessory muscle use or prolonged expiratory phase Cardiovascular Cardiovascular: Present normal rhythm and tachycardia; Absent systolic murmur or diastolic murmur Adbominal Abdominal: Present soft and ascites; Absent tenderness, guarding, rebound, rigidity, organomegaly or mass Extremities Extremities: Present other (2+ bilateral lower extremity edema to the knees) Back Back: Absent CVA tenderness (R), CVA tenderness (L) or spinous process tenderness Neurological Neurological: Present alert, oriented X3 and CN II-XII intact; Absent motor sensory deficit Psychiatric Psychiatric: Present normal affect and normal mood Skin Skin: Present warm (WNL), dry and other (Jaundiced) Course Consultations Consultation #1: Dr. Lopez, hospitalist Time: 14:00 Vital Signs Vital signs: Vital Signs Temperature 97.0 F 03/03/22 11:42 Pulse Rate 82 03/03/22 11:42 Respiratory Rate 18 03/03/22 11:42 Blood Pressure 93/63 03/03/22 11:42 Pulse Oximetry (%) 99 03/03/22 11:42 Temperature 97.0 F 03/03/22 11:42 Pulse Rate 122 H 03/03/22 15:32 Respiratory Rate 18 03/03/22 15:32 Blood Pressure 99/67 03/03/22 15:32 Pulse Oximetry (%) 98 03/03/22 15:00 MDM MDM Narrative Medical decision making narrative: 51-year-old female presenting with hyponatremia. She chronically has low sodium likely secondary to her cirrhosis but appears to be acutely worse than normal based on her labs from yesterday. She is mildly tachycardic but vital signs are otherwise stable. No abdominal tenderness on exam. 500cc normal saline bolus ordered. EKG with no ischemic changes. Will repeat labs and obtain UA and urine electrolytes. 1410: Labs notable for hyponatremia to 116. She does have a mild leukocytosis to 13.1. She remains tachycardic to the 110s and borderline hypotensive, 90s over 60s. Patient denies any urinary symptoms, cough, fever, or abdominal pain. Low concern for SBP given she has no abdominal tenderness on exam. Patient clinically appears well, resting comfortably in bed, and without complaints. Will further evaluate for underlying infectious process given her tachycardia and mild hypotension. Lactic acid, blood cultures, and chest x-ray ordered. UA is pending. I spoke with Dr. Lopez, hospitalist, who is agreeable with admitting the patient. 1440: UA with no evidence of infection. COVID test is negative. 1520: Lactate mildly elevated to 2.3 in the setting of her known liver disease. CXR shows moderate infiltrate vs atelctasis in the L lower lobe. Additional 500cc bolus and 1g IV rocehpin ordered. 1605: Patient transferred to the floor. Lab Data Lab results reviewed: Yes I reviewed the patient's lab results. Result diagrams: 03/03/22 12:11 03/03/22 12:11 Labs: Lab Results 03/03/22 03/03/22 03/03/22 Range/Units 12:09 12:11 12:11 WBC 13.1 H (4.5-11.0) K/mcL RBC 3.20 L (3.59-5.38) M/mcL Hgb 9.9 L (11.2-15.7) g/dL Hct 27.6 L (34.1-44.9) % POC Hct 33.0 L (36-48) MCV 86.3 (80.0-100.0) fL MCH 30.9 (26.0-34.0) pg MCHC 35.9 (31.0-36.0) g/dL RDW 15.4 H (11.5-14.5) % Plt Count 190 (140-440) K/mcL MPV 9.2 (7.4-10.4) fL Neut % (Auto) 79.2 H (38.0-78.0) % Lymph % (Auto) 11.8 L (15.5-49.0) % Schuyler % (Auto) 8.1 (1.0-12.0) % Eos % (Auto) 0.7 (0.0-7.0) % Baso % (Auto) 0.2 (0.0-2.0) % Lymph # (Auto) 1.54 (1.50-4.80) K/mcL Schuyler # (Auto) 1.06 H (0.10-0.90) K/mcL Eos # (Auto) 0.09 (0.00-0.70) K/mcL Baso # (Auto) 0.02 (0.00-0.30) K/mcL Absolute Neutrophils 10.34 H (1.80-8.00) K/mcL PT (11.9-14.5) sec INR (0.9-1.1) APTT (20.0-37.0) sec VBG Lactic Acid (0.5-2.0) mmol/L POC Sodium 121 L (133-145) Sodium 116 L* (133-145) mmol/L POC Potassium 4.9 (3.3-5.1) Potassium 4.9 (3.3-5.1) mmol/L POC Chloride 91 L (96-108) Chloride 87 L (96-108) mmol/L Carbon Dioxide 17 L (22-30) mmol/L POC Total CO2 21.0 L (22-30) Anion Gap 12.0 (8.0-16.0) POC BUN 32 H (6-20) BUN 29 H (6-20) mg/dL Creatinine 0.8 (0.6-1.1) mg/dL POC Creatinine 1.0 (0.6-1.2) GFR Calculation 85 Glucose 111 H (70-105) mg/dL POC Glucose 112 H (70-105) Osmolality 264 L (280-300) mOSM/kg Calcium 8.4 L (8.6-10.4) mg/dL POC WB Ioniz Calcium 1.12 L (1.16-1.32) Magnesium 2.1 (1.6-2.5) mg/dL Total Bilirubin 3.6 H (0.1-1.0) mg/dL AST 63 H (<32) U/L ALT 26 (<40) U/L Alkaline Phosphatase 242 H (39-117) U/L Total Protein 5.5 L (5.9-8.4) gm/dL Albumin 2.6 L (3.2-5.2) gm/dL Globulin 2.9 (2.2-3.7) gm/dL Albumin/Globulin Ratio 0.9 L (1.0-2.3) Urine Color Urine Appearance (Clear) Urine pH (5.0-9.0) Ur Specific [place] (1.000-1.035) Urine Protein (Negative) mg/dL Urine Glucose (UA) (Negative) mg/dL Urine Ketones (Negative) mg/dL Urine Occult Blood (Negative) mg/dL Urine Nitrate (Negative) Urine Bilirubin (Negative) mg/dL Urine Urobilinogen mg/dL Ur Leukocyte Esterase (Negative) /uL Ur Culture Indicated? Urine Osmolality (80-1000) mOSM/kg Ur Random Creatinine (28.0-217.0) mg/dL Ur Random Sodium mmol/L 03/03/22 03/03/22 03/03/22 Range/Units 12:11 13:42 13:42 WBC (4.5-11.0) K/mcL RBC (3.59-5.38) M/mcL Hgb (11.2-15.7) g/dL Hct (34.1-44.9) % POC Hct (36-48) MCV (80.0-100.0) fL MCH (26.0-34.0) pg MCHC (31.0-36.0) g/dL RDW (11.5-14.5) % Plt Count (140-440) K/mcL MPV (7.4-10.4) fL Neut % (Auto) (38.0-78.0) % Lymph % (Auto) (15.5-49.0) % Schuyler % (Auto) (1.0-12.0) % Eos % (Auto) (0.0-7.0) % Baso % (Auto) (0.0-2.0) % Lymph # (Auto) (1.50-4.80) K/mcL Schuyler # (Auto) (0.10-0.90) K/mcL Eos # (Auto) (0.00-0.70) K/mcL Baso # (Auto) (0.00-0.30) K/mcL Absolute Neutrophils (1.80-8.00) K/mcL PT 18.3 H (11.9-14.5) sec INR 1.5 H (0.9-1.1) APTT 35.8 (20.0-37.0) sec VBG Lactic Acid (0.5-2.0) mmol/L POC Sodium (133-145) Sodium (133-145) mmol/L POC Potassium (3.3-5.1) Potassium (3.3-5.1) mmol/L POC Chloride (96-108) Chloride (96-108) mmol/L Carbon Dioxide (22-30) mmol/L POC Total CO2 (22-30) Anion Gap (8.0-16.0) POC BUN (6-20) BUN (6-20) mg/dL Creatinine (0.6-1.1) mg/dL POC Creatinine (0.6-1.2) GFR Calculation Glucose (70-105) mg/dL POC Glucose (70-105) Osmolality (280-300) mOSM/kg Calcium (8.6-10.4) mg/dL POC WB Ioniz Calcium (1.16-1.32) Magnesium (1.6-2.5) mg/dL Total Bilirubin (0.1-1.0) mg/dL AST (<32) U/L ALT (<40) U/L Alkaline Phosphatase (39-117) U/L Total Protein (5.9-8.4) gm/dL Albumin (3.2-5.2) gm/dL Globulin (2.2-3.7) gm/dL Albumin/Globulin Ratio (1.0-2.3) Urine Color Urine Appearance (Clear) Urine pH (5.0-9.0) Ur Specific [place] (1.000-1.035) Urine Protein (Negative) mg/dL Urine Glucose (UA) (Negative) mg/dL Urine Ketones (Negative) mg/dL Urine Occult Blood (Negative) mg/dL Urine Nitrate (Negative) Urine Bilirubin (Negative) mg/dL Urine Urobilinogen mg/dL Ur Leukocyte Esterase (Negative) /uL Ur Culture Indicated? Urine Osmolality 707 (80-1000) mOSM/kg Ur Random Creatinine 109.2 (28.0-217.0) mg/dL Ur Random Sodium 10 mmol/L 03/03/22 03/03/22 Range/Units 13:42 14:07 WBC (4.5-11.0) K/mcL RBC (3.59-5.38) M/mcL Hgb (11.2-15.7) g/dL Hct (34.1-44.9) % POC Hct (36-48) MCV (80.0-100.0) fL MCH (26.0-34.0) pg MCHC (31.0-36.0) g/dL RDW (11.5-14.5) % Plt Count (140-440) K/mcL MPV (7.4-10.4) fL Neut % (Auto) (38.0-78.0) % Lymph % (Auto) (15.5-49.0) % Schuyler % (Auto) (1.0-12.0) % Eos % (Auto) (0.0-7.0) % Baso % (Auto) (0.0-2.0) % Lymph # (Auto) (1.50-4.80) K/mcL Sch[place]yler # (Auto) (0.10-0.90) K/mcL Eos # (Auto) (0.00-0.70) K/mcL Baso # (Auto) (0.00-0.30) K/mcL Absolute Neutrophils (1.80-8.00) K/mcL PT (11.9-14.5) sec INR (0.9-1.1) APTT (20.0-37.0) sec VBG Lactic Acid 2.3 H (0.5-2.0) mmol/L POC Sodium (133-145) Sodium (133-145) mmol/L POC Potassium (3.3-5.1) Potassium (3.3-5.1) mmol/L POC Chloride (96-108) Chloride (96-108) mmol/L Carbon Dioxide (22-30) mmol/L POC Total CO2 (22-30) Anion Gap (8.0-16.0) POC BUN (6-20) BUN (6-20) mg/dL Creatinine (0.6-1.1) mg/dL POC Creatinine (0.6-1.2) GFR Calculation Glucose (70-105) mg/dL POC Glucose (70-105) Osmolality (280-300) mOSM/kg Calcium (8.6-10.4) mg/dL POC WB Ioniz Calcium (1.16-1.32) Magnesium (1.6-2.5) mg/dL Total Bilirubin (0.1-1.0) mg/dL AST (<32) U/L ALT (<40) U/L Alkaline Phosphatase (39-117) U/L Total Protein (5.9-8.4) gm/dL Albumin (3.2-5.2) gm/dL Globulin (2.2-3.7) gm/dL Albumin/Globulin Ratio (1.0-2.3) Urine Color Lani Urine Appearance Hazy A (Clear) Urine pH 5.0 (5.0-9.0) Ur Specific [place] 1.026 (1.000-1.035) Urine Protein Negative (Negative) mg/dL Urine Glucose (UA) Negative (Negative) mg/dL Urine Ketones Negative (Negative) mg/dL Urine Occult Blood Negative (Negative) mg/dL Urine Nitrate Negative (Negative) Urine Bilirubin Negative (Negative) mg/dL Urine Urobilinogen Negative mg/dL Ur Leukocyte Esterase Negative (Negative) /uL Ur Culture Indicated? No Urine Osmolality (80-1000) mOSM/kg Ur Random Creatinine (28.0-217.0) mg/dL Ur Random Sodium mmol/L ED POC Tests ED POC Tests: SEGUN - SARS Antigen Negative Radiology Data Radiology results reviewed: Yes I reviewed the patient's radiology results. Radiology results narrative: Ordering Physician:Bob Arreola M.D. Date of Service:03/03/22 Procedure(s):XR chest 1V portable CLINICAL INFORMATION: The psychosis and low sodium COMPARISON: None. TECHNIQUE: PA and Lateral views FINDINGS: The heart size, mediastinum and pulmonary vessels are unremarkable. Moderate consolidated atelectasis or, less likely, infiltrate is seen in the left lower lobe-retrocardiac region with a moderate left pleural effusion. The bones and soft tissues are within normal limits. IMPRESSION: Moderate consolidated infiltrate or atelectasis in the left lower lobe (retrocardiac region) with moderate left pleural effusion Interpreted and Authenticated by: Adam Meehan 03/03/22 EKG Data EKG #1: EKG attestation: Yes I reviewed and interpreted this EKG. and Yes There are no EKG findings of acute coronary syndrome EKG results narrative: Sinus rhythm at [address] elevation or depression. QTc is borderline prolonged at 500ms Interpretation: no acute changes Discharge Plan Patient/Caregiver Discharge Instructions Pt seen by FINAL FINISHER/PA only: No Clinical Impression: Hyponatremia Patient Disposition: Xfer As Inpt ([facility]) Discharge Date/Time: 03/03/22 15:51
[2022-03-03] MEDS ORDERED: 0.9 % SODIUM CHLORIDE 500 ML IV ONE ×3 (12:02→15:53)
[2022-03-03 12:12] LABS: POC Calcium, Ionized 1.12 (1.16-1.32); POC Potassium 4.9 (3.3-5.1)
[2022-03-03 13:05] LABS: Basophils # (Auto) 0.02 K/mcL (0.00-0.30); Basophils % (Auto) 0.2 % (0.0-2.0); Eosinophils # (Auto) 0.09 K/mcL (0.00-0.70); Eosinophils % (Auto) 0.7 % (0.0-7.0); Hematocrit 27.6 % (34.1-44.9); Hemoglobin 9.9 g/dL (11.2-15.7); Lymphocytes # (Auto) 1.54 K/mcL (1.50-4.80); Lymphocytes % (Auto) 11.8 % (15.5-49.0); Mean Cell Volume 86.3 fL (80.0-100.0); Mean Corpuscular HGB Conc 35.9 g/dL (31.0-36.0); Mean Platelet Volume 9.2 fL (7.4-10.4); Monocytes # (Auto) 1.06 K/mcL (0.10-0.90); Monocytes % (Auto) 8.1 % (1.0-12.0); Neutrophils % (Auto) 79.2 % (38.0-78.0); Platelet Count 190 K/mcL (140-440); Red Cell Distribution Width 15.4 % (11.5-14.5); WBC 13.1 K/mcL (4.5-11.0)
[2022-03-03 13:26] LABS: ALT/SGPT 26 U/L (<40); AST/SGOT 63 U/L (<32); Albumin 2.6 gm/dL (3.2-5.2); Albumin/Globulin Ratio 0.9 (1.0-2.3); Alkaline Phosphatase 242 U/L (39-117); Bilirubin,Total 3.6 mg/dL (0.1-1.0); Blood Urea Nitrogen 29 mg/dL (6-20); Calcium 8.4 mg/dL (8.6-10.4); Carbon Dioxide 17 mmol/L (22-30); Chloride 87 mmol/L (96-108); Globulin 2.9 gm/dL (2.2-3.7); Glomerular Filtration Rate 85; Glucose 111 mg/dL (70-105)
[2022-03-03 13:43] LABS: INR 1.5 (0.9-1.1); Partial Thromboplastin Time 35.8 sec (20.0-37.0); Prothrombin Time 18.3 sec (11.9-14.5)
[2022-03-03 14:38] LABS: Appearance,Urine HAZY (Clear); Bilirubin,Urine Negative (Negative); Color,Urine AMBER; Culture Indicated,Urine No; Glucose,Urine (UA) Negative (Negative); Ketones,Urine Negative (Negative); Leukocyte Esterase,Urine Negative /uL (Negative); Nitrate,Urine Negative (Negative); Protein,Urine Negative (Negative); Specific Gravity,Urine 1.026 (1.000-1.035); Urine Blood Negative (Negative); Urobilinogen,Urine Negative
[2022-03-03 14:42] LABS: Sodium, Urine Random 10 mmol/L
[2022-03-03 14:43] LABS: Osmolality,Urine 707 mOSM/kg (80-1000)
--- NOTE | 2022-03-03 14:49 | XRay Report ---
CLINICAL INFORMATION: The psychosis and low sodium COMPARISON: None. TECHNIQUE: PA and Lateral views FINDINGS: The heart size, mediastinum and pulmonary vessels are unremarkable. Moderate consolidated atelectasis or, less likely, infiltrate is seen in the left lower lobe-retrocardiac region with a moderate left pleural effusion. The bones and soft tissues are within normal limits. IMPRESSION: Moderate consolidated infiltrate or atelectasis in the left lower lobe (retrocardiac region) with moderate left pleural effusion Interpreted and Authenticated by: Adam Meehan 03/03/22
[2022-03-03] MEDS ORDERED: cefTRIAXone 1 GM VIAL IV ONE ×2 (15:05→16:15)
--- NOTE | 2022-03-03 15:18 | Internal Med History&Physical ---
HPI History of Present Illness Patient information: Note initiated : 03/03/22 at 3:01 pm Service Date, if different from initiated Date: [] Patient: Berkley Elizalde 51 y/o F admitted on for Low Sodium. Chief Complaint: [] History of present illness: Ms. 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 The patient had a therapeutic paracentesis on 03/02/2022 with 3.4 L of fluid removed. Prior to the paracentesis, the patient had labs drawn which showed a sodium level of 112. The patient was told to come to the ED for hyponatremia. In the ED, the patient was found to have a sodium level of 116. Additionally, the patient was tachycardic and hypotensive and had leukocytosis as well as anemia with a hemoglobin of 9.9, last hemoglobin was 10.9 on 02/18/2022. The patient was recently found to have cellulitis of her lower extremities and started on cephalexin. She says that the cellulitis has improved since starting cephalexin. Additionally, the patient says that she has been taking ciprofloxacin for spontaneous bacterial peritonitis prophylaxis. The patient was recently seen by steel tester in [place] working with the [facility] liver transplant service. The patient says that she is currently in the process of being evaluated for liver transplant. The patient has had multiple paracentesis since her diagnosis of decompensated liver cirrhosis earlier this year. In the ED, the patient felt like she was unwell but could not place her finger on the root cause. She thinks that her lower extremity cellulitis has improved on antibiotics. We discussed the plan of care as well as CODE STATUS in detail. The patient wishes to be full code. Review of systems Constitutional: Positive for fatigue, denies fevers. Eyes: no vision changes or pain Cardiovascular: no chest pain, no palpitations Respiratory: no cough or dyspnea Gastrointestinal: Positive for recurring abdominal distention secondary to ascites, currently no abdominal pain, no nausea, vomiting, or diarrhea Genitourinary: no dysuria or difficulty voiding Musculoskeletal: Positive for bilateral lower extremity pain. Integumentary: Positive for bilateral lower extremity edema, redness, warmth. Neurological: no focal weakness or numbness Psychiatric: no anxiety or depression Physical exam General: Chronically ill appearing 51-year-old female in no apparent distress. Head: Atraumatic, normal inspection. Eyes: normal appearance, no scleral icterus. Neck: full ROM Respiratory: no respiratory distress. Cardiovascular: Irregular tachycardia, S1, S2. GI/Abdominal: Distended, soft, nontender, no guarding. Extremities: full range of motion, nontender. Neurological: CN II-XII intact, intact motor, intact sensation. Psychiatric: normal mood. Skin: Bilateral lower extremity redness and warmth with appearance of cellulitis, left lower extremity more impressive than right lower extremity. PFSH PFSH All Active Problems (Updated 03/03/22 @ 14:20 by Bob Arreola MD) Alcoholic cirrhosis of liver with ascites (Acute) Hyponatremia (Acute) Abdominal ascites (Acute) Hyponatremia (Acute) Alcoholic hepatitis (Acute) Ascites (Acute) Alcoholic cirrhosis of liver (Acute) Hyponatremia (Acute) History of tobacco use (Chronic) Insomnia (Chronic) Lumbar radiculopathy (Chronic) Chronic pain (Chronic) Disorder of gallbladder (Chronic) Gastroenteritis (Acute) Acute dehydration (Acute) Elevated aldolase level (Acute) Paresthesia (Acute) Back pain (Acute) Polyarthralgia (Chronic) Rheumatoid factor positive (Chronic) Elevated liver enzymes (Chronic) Steatosis of liver (Chronic) Arthritis (Chronic) Arthralgia (Chronic) Hormonal disorder (Chronic) Anxiety (Chronic) Heartburn (Chronic) Weight loss (Chronic) Indigestion (Chronic) Abdominal pain (Chronic) HTN (hypertension) (Chronic) GERD without esophagitis (Chronic) Generalized anxiety disorder (Chronic) Depression (Chronic) Fatigue (Chronic) Feeling poorly (Chronic) Dysphagia (Chronic) Headache (Chronic) Joint pain (Chronic) Lack of appetite (Chronic) Nausea & vomiting (Acute) Rheumatoid arthritis (Chronic) Medical History Abdominal pain Acute dehydration Anxiety Arthralgia Arthritis Back pain Chronic pain Depression Disorder of gallbladder Dysphagia Elevated aldolase level Elevated liver enzymes Fatigue Feeling poorly Gastroenteritis Generalized anxiety disorder GERD without esophagitis Headache Heartburn History of tobacco use 30 year use - quit 2014 Hormonal disorder hormonal changes HTN (hypertension) Indigestion Insomnia Joint pain Lack of appetite Low back pain Lumbar radiculopathy Nausea & vomiting Paresthesia Polyarthralgia Rheumatoid arthritis Rheumatoid factor positive Steatosis of liver Weight loss Surgical History History of esophagogastroduodenoscopy (EGD) (11/22/17) History of laparoscopic cholecystectomy (02/09/18) Family History Mother Malignant neoplasm of lung Hypertension Alcohol abuse Sister Malignant neoplasm of lung Alcohol abuse Hypertension Father Alcohol abuse Social History (Updated 03/27/21 @ 11:21 by Corin Hackett) marital status: education level: college occupational status: 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: 2 children smoking status: Former smoker alcohol intake frequency: former alcohol drinker substance use type: does not use MEDS/ALLERGIES Home Medications and Allergies Home Medications Medication Instructions Recorded Confirmed Type multivitamin 1 tab PO DAILY 12/06/17 03/03/22 History trazodone 50 mg tablet 50 mg PO QHS 03/10/21 03/03/22 History duloxetine 60 mg capsule,delayed 60 mg PO QDAY 12/06/21 03/03/22 History release (Cymbalta) furosemide 40 mg tablet 40 mg PO DAILY #60 tab 12/10/21 03/03/22 Rx lactulose 20 gram/30 mL oral 30 ml PO QIDP PRN #1200 ml 12/10/21 03/03/22 Rx solution pentoxifylline 400 mg 400 mg PO TID #75 tab 12/31/21 03/03/22 Rx tablet,extended release potassium chloride 20 mEq oral 20 meq PO BID #4 ea 01/02/22 03/03/22 Rx packet sodium di- and 1 tab PO BID #4 tab 01/02/22 03/03/22 Rx monophosphate-potassium phos monobasic 250 mg tablet ([id number]) spironolactone 50 mg tablet 50 mg PO QDAY 02/25/22 03/03/22 History cephalexin 500 mg capsule 1 cap PO QID 03/03/22 03/03/22 History metoprolol succinate 25 mg 0.5 tab PO QDAY 03/03/22 03/03/22 History tablet,extended release 24 hr mirtazapine 15 mg tablet 1 tab PO HS 03/03/22 03/03/22 History oxycodone 5 mg tablet 1 tab PO BIDP PRN 03/03/22 03/03/22 History Allergies Allergy/AdvReac Type Severity Reaction Status Date / Time rizatriptan [From [facility]] AdvReac Mild felt weird Verified 03/03/22 11:45 EXAM Constitutional Vitals: Temp Pulse Resp BP Pulse Ox 97.0 F 120 H 18 111/71 98 03/03/22 11:42 03/03/22 14:59 03/03/22 14:59 03/03/22 14:30 03/03/22 14:59 DATA Data Completed and Pending Labs: Labs from last 24 hours 03/03/22 03/03/22 03/03/22 14:07 13:42 13:42 WBC RBC Hgb Hct POC Hct MCV MCH MCHC RDW Plt Count MPV Neut % (Auto) Lymph % (Auto) [place] % (Auto) Eos % (Auto) Baso % (Auto) Lymph # (Auto) [place] # (Auto) Eos # (Auto) Baso # (Auto) Absolute Neutrophils PT INR APTT VBG Lactic Acid 2.3 H POC Sodium Sodium POC Potassium Potassium POC Chloride Chloride Carbon Dioxide POC Total CO2 Anion Gap POC BUN BUN Creatinine POC Creatinine GFR Calculation Glucose POC Glucose Osmolality Calcium POC WB Ioniz Calcium Magnesium Total Bilirubin AST ALT Alkaline Phosphatase Total Protein Albumin Globulin Albumin/Globulin Ratio Urine Color Lani Urine Appearance Hazy A Urine pH 5.0 Ur Specific [place] 1.026 Urine Protein Negative Urine Glucose (UA) Negative Urine Ketones Negative Urine Occult Blood Negative Urine Nitrate Negative Urine Bilirubin Negative Urine Urobilinogen Negative Ur Leukocyte Esterase Negative Ur Culture Indicated? No Urine Osmolality Ur Random Creatinine 109.2 Ur Random Sodium 03/03/22 03/03/22 03/03/22 13:42 12:11 12:11 WBC RBC Hgb Hct POC Hct MCV MCH MCHC RDW Plt Count MPV Neut % (Auto) Lymph % (Auto) [place] % (Auto) Eos % (Auto) Baso % (Auto) Lymph # (Auto) [place] # (Auto) Eos # (Auto) Baso # (Auto) Absolute Neutrophils PT 18.3 H INR 1.5 H APTT 35.8 VBG Lactic Acid POC Sodium Sodium 116 L* POC Potassium Potassium 4.9 POC Chloride Chloride 87 L Carbon Dioxide 17 L POC Total CO2 Anion Gap 12.0 POC BUN BUN 29 H Creatinine 0.8 POC Creatinine GFR Calculation 85 Glucose 111 H POC Glucose Osmolality 264 L Calcium 8.4 L POC WB Ioniz Calcium Magnesium 2.1 Total Bilirubin 3.6 H AST 63 H ALT 26 Alkaline Phosphatase 242 H Total Protein 5.5 L Albumin 2.6 L Globulin 2.9 Albumin/Globulin Ratio 0.9 L Urine Color Urine Appearance Urine pH Ur Specific [place] Urine Protein Urine Glucose (UA) Urine Ketones Urine Occult Blood Urine Nitrate Urine Bilirubin Urine Urobilinogen Ur Leukocyte Esterase Ur Culture Indicated? Urine Osmolality 707 Ur Random Creatinine Ur Random Sodium 10 03/03/22 03/03/22 12:11 12:09 WBC 13.1 H RBC 3.20 L Hgb 9.9 L Hct 27.6 L POC Hct 33.0 L MCV 86.3 MCH 30.9 MCHC 35.9 RDW 15.4 H Plt Count 190 MPV 9.2 Neut % (Auto) 79.2 H Lymph % (Auto) 11.8 L [place] % (Auto) 8.1 Eos % (Auto) 0.7 Baso % (Auto) 0.2 Lymph # (Auto) 1.54 [place] # (Auto) 1.06 H Eos # (Auto) 0.09 Baso # (Auto) 0.02 Absolute Neutrophils 10.34 H PT INR APTT VBG Lactic Acid POC Sodium 121 L Sodium POC Potassium 4.9 Potassium POC Chloride 91 L Chloride Carbon Dioxide POC Total CO2 21.0 L Anion Gap POC BUN 32 H BUN Creatinine POC Creatinine 1.0 GFR Calculation Glucose POC Glucose 112 H Osmolality Calcium POC WB Ioniz Calcium 1.12 L Magnesium Total Bilirubin AST ALT Alkaline Phosphatase Total Protein Albumin Globulin Albumin/Globulin Ratio Urine Color Urine Appearance Urine pH Ur Specific [place] Urine Protein Urine Glucose (UA) Urine Ketones Urine Occult Blood Urine Nitrate Urine Bilirubin Urine Urobilinogen Ur Leukocyte Esterase Ur Culture Indicated? Urine Osmolality Ur Random Creatinine Ur Random Sodium A/P Narrative A/P Narrative: Assessment: 51-year-old female with a history of recent cellulitis of her lower extremity, chronic hyponatremia, decompensated alcoholic liver cirrhosis complicated by recurrent diuretic resistant ascites requiring frequent therapeutic paracentesis admitted for severe hyponatremia and evidence of sepsis probably secondary to lower extremity cellulitis. The patient was recently started on cephalexin for cellulitis. The patient also had a therapeutic para centesis on 03/02/2022 for 3.4 L of fluid, the patient reportedly received albumin IV following the paracentesis. Urinalysis was not suggestive of UTI. The patient is currently being evaluated for liver transplant candidacy at the [facility]. #Sepsis likely secondary to lower extremity nonpurulent cellulitis #Severe acute on chronic hyponatremia #Acute on chronic anemia #Decompensated alcoholic liver cirrhosis #Malnourishment #History of alcohol use disorder currently in remission Plan -Vancomycin IV and ceftriaxone for now. -IV fluid, follow lactic acid. -Blood cultures x2. -Chest x-ray. -Trend sodium, avoid correction > 8 mmol/L/24 hrs. -Trend hemoglobin, if downtrending then will consider EGD. -Analgesics as needed for lower extremity pain secondary to cellulitis. -Hold home Lasix and spironolactone for now, resume after sepsis physiology has resolved. -Home medication reconciliation, resume important medications unless otherwise specified. -Fluid and sodium restricted diet. -Wound care for lower extremities. -Nutrition consult. -PT consult. -Monitor for recurrent ascites, therapeutic paracentesis as needed. -CODE STATUS: Full -Disposition: Home when stable. Follow-up with hepatology for ongoing evaluation for liver transplant. Time Spent With Patient Time: Total time spent is greater than 50% in coordination of care (as documented) at patient's floor/unit and/or counseling patient:
[2022-03-03] MEDS ORDERED: LACTULOSE 20 GM/30 ML ORAL.SOL PO PRN ×2 (15:53)
[2022-03-03] MEDS ORDERED: ONDANSETRON 4 MG/2 ML VIAL IV PRN (15:53)
[2022-03-03] MEDS ORDERED: VANCOMYCIN PER PHARMACY IV SCH ×2 (15:53→17:15)
[2022-03-03] MEDS ORDERED: SENNOSIDES 1 TABLET PO PRN (15:53)
[2022-03-03] MEDS: VANCOMYCIN 1,000 MG in 0.9 % SODIUM CHLORIDE 250 ML IV SCH (17:29)
[2022-03-03 19:03] LABS: ALT/SGPT 24 U/L (<40); AST/SGOT 65 U/L (<32); Albumin 2.5 gm/dL (3.2-5.2); Albumin/Globulin Ratio 0.9 (1.0-2.3); Alkaline Phosphatase 232 U/L (39-117); Bilirubin,Total 3.3 mg/dL (0.1-1.0); Blood Urea Nitrogen 26 mg/dL (6-20); Calcium 7.8 mg/dL (8.6-10.4); Carbon Dioxide 18 mmol/L (22-30); Chloride 89 mmol/L (96-108); Globulin 2.9 gm/dL (2.2-3.7); Glomerular Filtration Rate 85; Glucose 118 mg/dL (70-105); Lactate Dehydrogenase 381 U/L (135-225); Phosphorous 2.5 mg/dL (2.5-4.5); Triglycerides 71 mg/dL (<150); Uric Acid 4.6 mg/dL (2.5-8.0)
[2022-03-03] MEDS: oxyCODONE HCL 5 MG TABLET PO PRN (20:19)
[2022-03-03] MEDS: MIRTAZAPINE 15 MG TABLET PO SCH (20:20)
[2022-03-03] MEDS: 0.9 % SODIUM CHLORIDE 10 ML SYRINGE IV SCH (20:20)
[2022-03-04 04:35] LABS: Hematocrit 27.2 % (34.1-44.9); Hemoglobin 9.5 g/dL (11.2-15.7); Mean Cell Volume 82.7 fL (80.0-100.0); Mean Corpuscular HGB Conc 34.9 g/dL (31.0-36.0); Mean Platelet Volume 8.8 fL (7.4-10.4); Platelet Count 148 K/mcL (140-440); RBC 3.29 M/mcL (3.59-5.38); Red Cell Distribution Width 15.3 % (11.5-14.5); WBC 12.3 K/mcL (4.5-11.0)
[2022-03-04 04:57] LABS: ALT/SGPT 22 U/L (<40); AST/SGOT 57 U/L (<32); Albumin 2.3 gm/dL (3.2-5.2); Albumin/Globulin Ratio 0.8 (1.0-2.3); Alkaline Phosphatase 216 U/L (39-117); Bilirubin,Direct 1.8 mg/dL (<0.3); Bilirubin,Total 2.9 mg/dL (0.1-1.0); Blood Urea Nitrogen 26 mg/dL (6-20); Calcium 7.8 mg/dL (8.6-10.4); Carbon Dioxide 18 mmol/L (22-30); Chloride 90 mmol/L (96-108); Globulin 2.9 gm/dL (2.2-3.7); Glomerular Filtration Rate 85; Glucose 102 mg/dL (70-105); Lactate Dehydrogenase 335 U/L (135-225); Phosphorous 2.7 mg/dL (2.5-4.5); Triglycerides 65 mg/dL (<150); Uric Acid 4.5 mg/dL (2.5-8.0)
[2022-03-04] MEDS: 0.9 % SODIUM CHLORIDE 10 ML SYRINGE IV SCH ×3 (05:23→21:25)
[2022-03-04 05:24] LABS: Anisocytosis 1+ (None Seen); Eosinophils % (Manual) 3 % (0-7); Lymphocytes % 18 % (15-49); Monocytes % (Manual) 8 % (1-12); Platelet Estimate NORMAL (Normal); RBC Morphology ABNORMAL (Normal); Segmented Neutrophils % 71 % (38-78)
[2022-03-04] MEDS: MULTIVIT,THER IRON,CA,FA & MIN 1 TABLET PO SCH (09:46)
[2022-03-04] MEDS: DULoxetine 30 MG CAPSULE PO SCH ×2 (09:46→10:16)
[2022-03-04] MEDS: cefTRIAXone 2 GM in DEXTROSE 5% IN WATER 50 ML IV SCH (09:47)
[2022-03-04] MEDS: VANCOMYCIN 1,000 MG in 0.9 % SODIUM CHLORIDE 250 ML IV SCH ×2 (10:25→22:01)
[2022-03-04] MEDS: oxyCODONE HCL 5 MG TABLET PO PRN ×2 (10:59→21:17)
[2022-03-04] MEDS ORDERED: MIDODRINE 5 MG TABLET PO PRN ×2 (12:00→16:07)
[2022-03-04] MEDS ORDERED: MIDODRINE 5 MG TABLET PO SCH (12:00)
[2022-03-04] MEDS: PANTOPRAZOLE 40 MG VIAL IV SCH (12:29)
[2022-03-04] MEDS: FUROSEMIDE 40 MG/4 ML VIAL IV SCH ×2 (12:43→16:33)
[2022-03-04] MEDS: PHENobarb/HYOSCY/ATROPINE/SCOP 1 DOSE BOTTLE PO PRN ×2 (12:47→18:57)
--- NOTE | 2022-03-04 15:04 | Internal Med Progress Note ---
SUBJECTIVE Subjective Patient information: Note initiated : 03/04/22 at 3:01 pm Service Date, if different from initiated Date: [] Patient: Berkley Elizalde 51 y/o F admitted on 03/03/22 for Low Sodium. Chief Complaint: [] Interval history: Ms. 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 The patient had a therapeutic paracentesis on 03/02/2022 with 3.4 L of fluid removed. Prior to the paracentesis, the patient had labs drawn which showed a sodium level of 112. The patient was told to come to the ED for hyponatremia. In the ED, the patient was found to have a sodium level of 116. Additionally, the patient was tachycardic and hypotensive and had leukocytosis as well as anemia with a hemoglobin of 9.9, last hemoglobin was 10.9 on 02/18/2022. The patient was recently found to have cellulitis of her lower extremities and started on cephalexin. She says that the cellulitis has improved since starting cephalexin. Additionally, the patient says that she has been taking ciprofloxacin for spontaneous bacterial peritonitis prophylaxis. The patient was recently seen by diesel mechanic apprentice in [place] working with the [facility] liver transplant service. The patient says that she is currently in the process of being evaluated for liver transplant. The patient has had multiple paracentesis since her diagnosis of decompensated liver cirr hosis earlier this year. In the ED, the patient felt like she was unwell but could not place her finger on the root cause. She thinks that her lower extremity cellulitis has improved on antibiotics. We discussed the plan of care as well as CODE STATUS in detail. The patient wishes to be full code. 03/04 Feels better today, serum sodium about the same after 1.5 L of normal saline. Repeat lactic acid normal. Started Lasix 40 mg IV twice daily, following sodium closely. Blood culture showing no growth at day 1, continued vancomycin IV and ceftriaxone.Hemoglobin trend stable. Reviewed prior images, ordered portal vein Doppler and pelvic ultrasound to evaluate for portal vein thrombus and endometrial thickening, respectively. Chest x-ray radiology report impression was moderate consolidated infiltrate or atelectasis in the left lower lobe and moderate left pleural effusion. Physical exam General: Chronically ill appearing 51-year-old female in no apparent distress. Head: Atraumatic, normal inspection. Eyes: normal appearance, no scleral icterus. Neck: full ROM Respiratory: no respiratory distress. Cardiovascular: Regular tachycardia, S1, S2. GI/Abdominal: Distended, soft, nontender, no guarding. Extremities: full range of motion, nontender. Neurological: CN II-XII intact, intact motor, intact sensation. Psychiatric: normal mood. Skin: Bilateral lower extremity redness and warmth with appearance of cellulitis, left lower extremity more impressive than right lower extremity. Constitutional Vitals: Vital Signs Temp Pulse Resp BP Pulse Ox 99.0 F 123 H 16 98/70 98 03/04/22 12:01 03/04/22 13:30 03/04/22 14:00 03/04/22 14:00 03/04/22 14:00 Period Temp Pulse Resp BP Sys/[place] Pulse Ox Last 24 Hr 97.2 F-99.0 F 115-129 12-26 76-122/42-79 95-100 Intake and Output 03/04/22 03/04/22 03/04/22 05:59 13:59 21:59 Intake Total 480 300 Output Total 100 405 Balance 380 -105 Intake & Output: Intake & Output 03/04/22 03/04/22 03/04/22 05:59 13:59 21:59 Intake Total 480 300 Output Total 100 405 Balance 380 -105 Intake: IV 300 Vancomycin 1,000 mg In Sodium 250 Chloride 0.9% 250 ml @ 250 mls/ hr IV Q12H DAVID Rx#:[id number] Rocephin 2 gm In Dextrose 5% in 50 Water 50 ml @ 100 mls/hr IV DAILY DAVID Rx#:[id number] Oral 480 Output: Void Amount 100 5 Urine/Stool Mix 400 Other: Meal Lunch Percent of Meal Consumed 75% Feeding Ability Independent Urine Appearance Clear Clear Urine Color Dark Yellow Pale Urine Odor Strong Stool Size Small Small Stool Color Brown Brown Green Stool Consistency Soft Loose # Bowel Movements 1 OBJ DATA Labs CBC & Chem 7: 03/04/22 12:00 03/04/22 12:09 Labs: Abnormal Lab Results 03/04/22 03/04/22 03/04/22 12:09 12:00 09:58 WBC RBC Hgb 9.8 L Hct POC Hct RDW Neut % (Auto) Lymph % (Auto) [place] # (Auto) Absolute Neutrophils RBC Morphology Anisocytosis PT INR VBG Lactic Acid POC Sodium Sodium 117 L* 118 L* POC Chloride Chloride Carbon Dioxide POC Total CO2 POC BUN BUN Glucose POC Glucose Osmolality Calcium POC WB Ioniz Calcium Total Bilirubin Direct Bilirubin GGT AST Alkaline Phosphatase Lactate Dehydrogenase Total Protein Albumin Albumin/Globulin Ratio Urine Appearance 03/04/22 03/04/22 03/03/22 04:04 04:03 22:15 WBC 12.3 H RBC 3.29 L Hgb 9.5 L Hct 27.2 L POC Hct RDW 15.3 H Neut % (Auto) Lymph % (Auto) [place] # (Auto) Absolute Neutrophils RBC Morphology Abnormal A Anisocytosis 1+ A PT INR VBG Lactic Acid POC Sodium Sodium 117 L* 116 L* POC Chloride Chloride 90 L Carbon Dioxide 18 L POC Total CO2 POC BUN BUN 26 H Glucose POC Glucose Osmolality Calcium 7.8 L POC WB Ioniz Calcium Total Bilirubin 2.9 H Direct Bilirubin 1.8 H GGT 88 H AST 57 H Alkaline Phosphatase 216 H Lactate Dehydrogenase 335 H Total Protein 5.2 L Albumin 2.3 L Albumin/Globulin Ratio 0.8 L Urine Appearance 03/03/22 03/03/22 03/03/22 22:15 16:22 15:53 WBC RBC Hgb 9.9 L 9.6 L Hct POC Hct RDW Neut % (Auto) Lymph % (Auto) [place] # (Auto) Absolute Neutrophils RBC Morphology Anisocytosis PT INR VBG Lactic Acid POC Sodium Sodium 118 L* POC Chloride Chloride 89 L Carbon Dioxide 18 L POC Total CO2 POC BUN BUN 26 H Glucose 118 H POC Glucose Osmolality Calcium 7.8 L POC WB Ioniz Calcium Total Bilirubin 3.3 H Direct Bilirubin 2.0 H GGT 86 H AST 65 H Alkaline Phosphatase 232 H Lactate Dehydrogenase 381 H Total Protein 5.4 L Albumin 2.5 L Albumin/Globulin Ratio 0.9 L Urine Appearance 03/03/22 03/03/22 03/03/22 14:07 13:42 12:11 WBC RBC Hgb Hct POC Hct RDW Neut % (Auto) Lymph % (Auto) [place] # (Auto) Absolute Neutrophils RBC Morphology Anisocytosis PT 18.3 H INR 1.5 H VBG Lactic Acid 2.3 H POC Sodium Sodium POC Chloride Chloride Carbon Dioxide POC Total CO2 POC BUN BUN Glucose POC Glucose Osmolality Calcium POC WB Ioniz Calcium Total Bilirubin Direct Bilirubin GGT AST Alkaline Phosphatase Lactate Dehydrogenase Total Protein Albumin Albumin/Globulin Ratio Urine Appearance Hazy A 03/03/22 03/03/22 03/03/22 12:11 12:11 12:09 WBC 13.1 H RBC 3.20 L Hgb 9.9 L Hct 27.6 L POC Hct 33.0 L RDW 15.4 H Neut % (Auto) 79.2 H Lymph % (Auto) 11.8 L [place] # (Auto) 1.06 H Absolute Neutrophils 10.34 H RBC Morphology Anisocytosis PT INR VBG Lactic Acid POC Sodium 121 L Sodium 116 L* POC Chloride 91 L Chloride 87 L Carbon Dioxide 17 L POC Total CO2 21.0 L POC BUN 32 H BUN 29 H Glucose 111 H POC Glucose 112 H Osmolality 264 L Calcium 8.4 L POC WB Ioniz Calcium 1.12 L Total Bilirubin 3.6 H Direct Bilirubin GGT AST 63 H Alkaline Phosphatase 242 H Lactate Dehydrogenase Total Protein 5.5 L Albumin 2.6 L Albumin/Globulin Ratio 0.9 L Urine Appearance Meds: Medications Belladonna/Phenobarbital (Phenobarb/Hyoscy/Atropine/Scop 1 Dose Bottle) 1 dose PO Q4HP PRN PRN Reason: Dyspepsia Last Admin: 03/04/22 12:47 Dose: 1 dose Documented by: Furosemide (Furosemide 40 Mg/4 Ml Vial) 40 mg IV BIDD [facility] Last Admin: 03/04/22 12:43 Dose: 40 mg Documented by: Ceftriaxone Sodium 2 gm/ (Dextrose) 50 mls @ 100 mls/hr IV DAILY [facility]; Protocol Last Infusion: 03/04/22 10:17 Dose: Infused Documented by: Vancomycin HCl 1,000 mg/ (Sodium Chloride) 250 mls @ 250 mls/hr IV Q12H [facility] Last Infusion: 03/04/22 11:25 Dose: Infused Documented by: Iron Carb/Multivit/[place]/Folic Acid (Multivit,Ther Iron,Ca,Fa & Min 1 Tablet) 1 tab PO DAILY [facility] Last Admin: 03/04/22 09:46 Dose: 1 tab Documented by: Lactulose (Lactulose 20 Gm/30 Ml Oral.Josefina) 10 gm PO DAILYP PRN PRN Reason: Constipation Lactulose (Lactulose 20 Gm/30 Ml Oral.Josefina) 20 gm PO QIDP PRN PRN Reason: CONSTIPATION Midodrine (Midodrine 5 Mg Tablet) 5 mg PO TID@0800,1200,1700 PRN PRN Reason: Hypotension Mirtazapine (Mirtazapine 15 Mg Tablet) 15 mg PO HS [facility] Last Admin: 03/03/22 20:20 Dose: 15 mg Documented by: Ondansetron HCl (Ondansetron 4 Mg/2 Ml Vial) 4 mg IV Q4HP PRN; Protocol PRN Reason: Nausea And Vomiting Oxycodone HCl (Oxycodone Hcl 5 Mg Tablet) 5 mg PO BIDP PRN; Protocol PRN Reason: Pain Last Admin: 03/04/22 10:59 Dose: 5 mg Documented by: Pantoprazole Sodium (Pantoprazole 40 Mg Vial) 40 mg IV QAMAC [facility] Last Admin: 03/04/22 12:29 Dose: 40 mg Documented by: Senna (Sennosides 1 Tablet) 2 tab PO HSP PRN PRN Reason: Constipation Sodium Chloride (0.9 % Sodium Chloride 10 Ml Syringe) 10 ml IV Q8 [facility] Last Admin: 03/04/22 13:26 Dose: 10 ml Documented by: Vancomycin HCl (Vancomycin Per Pharmacy) 1 order IV UD [facility]; Protocol A/P Narrative A/P Narrative: Assessment: 51-year-old female with a history of recent cellulitis of her lower extremity, chronic hyponatremia, decompensated alcoholic liver cirrhosis complicated by recurrent diuretic resistant ascites requiring frequent therapeutic paracentesis admitted for severe hyponatremia and evidence of sepsis probably secondary to lower extremity cellulitis. The patient was recently started on cephalexin for cellulitis. The patient also had a therapeutic paracentesis on 03/02/2022 for 3.4 L of fluid, the patient reportedly received albumin IV following the paracentesis. Urinalysis was not suggestive of UTI. The patient is currently being evaluated for liver transplant candidacy at the [facility]. 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 -Follow blood cultures x2. -Start Lasix 40 mg IV twice daily. -Monitor urine output and volume status. -Trend sodium, avoid correction > 8 mmol/L/24 hrs. -Monitor hemoglobin. -Liver ultrasound to evaluate portal vein patency. -Pelvic ultrasound to evaluate endometrial thickening noted on prior CT scan. -Analgesics as needed for lower extremity pain secondary to cellulitis. -Midodrine as needed for hypotension. -Continue home mirtazapine, lactulose, trazodone at bedtime as needed. -Holding home Lasix, spironolactone, metoprolol for now. -Fluid and sodium restricted diet. -Wound care for lower extremities. -Nutrition consult. -PT consult. -Monitor for recurrent ascites, therapeutic paracentesis as needed. -CODE STATUS: Full -Disposition: Home when stable. Follow-up with hepatology for ongoing evaluation for liver transplant. Time Spent With Patient Time: Total time spent is greater than 50% in coordination of care (as documented) at patient's floor/unit and/or counseling patient: QUALITY VTE Deep Vein Thrombosis/Pulmonary Embolism Present on Admission: No
[2022-03-04] MEDS ORDERED: traZODone HCL 50 MG TABLET PO PRN (15:20)
--- NOTE | 2022-03-04 18:06 | Ultrasound Report ---
CLINICAL INFORMATION: History of cirrhosis. Evaluate the portal vein COMPARISON: None. FINDINGS: The main portal vein is suboptimally visualized there is bidirectional flow. Moderate ascites noted.. IMPRESSION: Bidirectional main portal vein flow which would imply portal hypertension.. Interpreted and Authenticated by: Adam Meehan 03/04/22
--- NOTE | 2022-03-04 18:18 | Ultrasound Report ---
CLINICAL INFORMATION: Thickened endometrium seen on CT 12/05/2021 COMPARISON: Abdomen and pelvic CT 12/05/2021 FINDINGS: The uterus is anteflexed and normal in size, configuration and echotexture: 6.7 x 3.1 cm. Endometrium is normal thickness at 7 mm.. Neither ovary is visualized. Moderate ascites noted. IMPRESSION: Normal postmenopausal uterus with normal endometrial thickness Interpreted and Authenticated by: Adam Meehan 03/04/22
[2022-03-04] MEDS ORDERED: traZODone HCL 50 MG TABLET PO SCH (21:00)
[2022-03-04] MEDS: MIRTAZAPINE 15 MG TABLET PO SCH (21:17)
[2022-03-04] MEDS: ALBUMIN HUMAN 25 GM/100 ML BAG IV SCH ×2 (21:23→21:25)
[2022-03-05] MEDS: 0.9 % SODIUM CHLORIDE 10 ML SYRINGE IV SCH ×3 (05:42→21:31)
[2022-03-05 06:46] LABS: Hematocrit 25.1 % (34.1-44.9); Hemoglobin 8.8 g/dL (11.2-15.7); Mean Cell Volume 84.2 fL (80.0-100.0); Mean Corpuscular HGB Conc 35.1 g/dL (31.0-36.0); Mean Platelet Volume 8.8 fL (7.4-10.4); Platelet Count 114 K/mcL (140-440); RBC 2.98 M/mcL (3.59-5.38); Red Cell Distribution Width 15.6 % (11.5-14.5)
[2022-03-05 07:21] LABS: ALT/SGPT 20 U/L (<40); AST/SGOT 47 U/L (<32); Albumin 2.7 gm/dL (3.2-5.2); Albumin/Globulin Ratio 1.1 (1.0-2.3); Alkaline Phosphatase 197 U/L (39-117); Bilirubin,Direct 1.6 mg/dL (<0.3); Bilirubin,Total 2.7 mg/dL (0.1-1.0); Blood Urea Nitrogen 23 mg/dL (6-20); Calcium 8.2 mg/dL (8.6-10.4); Carbon Dioxide 19 mmol/L (22-30); Chloride 90 mmol/L (96-108); Globulin 2.5 gm/dL (2.2-3.7); Glomerular Filtration Rate 105; Glucose 109 mg/dL (70-105); Lactate Dehydrogenase 315 U/L (135-225); Phosphorous 2.6 mg/dL (2.5-4.5); Triglycerides 50 mg/dL (<150); Uric Acid 4.5 mg/dL (2.5-8.0)
[2022-03-05] MEDS: PANTOPRAZOLE 40 MG VIAL IV SCH (07:55)
[2022-03-05] MEDS ORDERED: MIDODRINE 5 MG TABLET PO SCH ×2 (08:00)
[2022-03-05] MEDS: MULTIVIT,THER IRON,CA,FA & MIN 1 TABLET PO SCH (09:14)
[2022-03-05] MEDS: cefTRIAXone 2 GM in DEXTROSE 5% IN WATER 50 ML IV SCH (09:14)
[2022-03-05 10:19] LABS: Anisocytosis 1+ (None Seen); Eosinophils % (Manual) 3 % (0-7); Lymphocytes % 23 % (15-49); Monocytes % (Manual) 9 % (1-12); Platelet Estimate DECREASED (Normal); RBC Morphology ABNORMAL (Normal); Segmented Neutrophils % 65 % (38-78)
[2022-03-05] MEDS: VANCOMYCIN 1,000 MG in 0.9 % SODIUM CHLORIDE 250 ML IV SCH (11:13)
[2022-03-05] MEDS: MIDODRINE 5 MG TABLET PO SCH ×2 (12:24→16:56)
--- NOTE | 2022-03-05 12:56 | Internal Med Progress Note ---
SUBJECTIVE Subjective Patient information: Note initiated : 03/05/22 at 12:51 pm Service Date, if different from initiated Date: [] Patient: Berkley Elizalde 51 y/o F admitted on 03/03/22 for Low Sodium. Chief Complaint: [] Interval history: Ms. 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 The patient had a therapeutic paracentesis on 03/02/2022 with 3.4 L of fluid removed. Prior to the paracentesis, the patient had labs drawn which showed a sodium level of 112. The patient was told to come to the ED for hyponatremia. In the ED, the patient was found to have a sodium level of 116. Additionally, the patient was tachycardic and hypotensive and had leukocytosis as well as anemia with a hemoglobin of 9.9, last hemoglobin was 10.9 on 02/18/2022. The patient was recently found to have cellulitis of her lower extremities and started on cephalexin. She says that the cellulitis has improved since starting cephalexin. Additionally, the patient says that she has been taking ciprofloxacin for spontaneous bacterial peritonitis prophylaxis. The patient was recently seen by eye specialist in [place] working with the [facility] liver transplant service. The patient says that she is currently in the process of being evaluated for liver transplant. The patient has had multiple paracentesis since her diagnosis of decompensated liver cir rhosis earlier this year. In the ED, the patient felt like she was unwell but could not place her finger on the root cause. She thinks that her lower extremity cellulitis has improved on antibiotics. We discussed the plan of care as well as CODE STATUS in detail. The patient wishes to be full code. 03/04 Feels better today, serum sodium about the same after 1.5 L of normal saline. Repeat lactic acid normal. Started Lasix 40 mg IV twice daily, following sodium closely. Blood culture showing no growth at day 1, continued vancomycin IV and ceftriaxone.Hemoglobin trend stable. Reviewed prior images, ordered portal vein Doppler and pelvic ultrasound to evaluate for portal vein thrombus and endometrial thickening, respectively. Chest x-ray radiology report impression was moderate consolidated infiltrate or atelectasis in the left lower lobe and moderate left pleural effusion. 5/6 Scheduled midodrine for persistent hypotension, received albumin IV yesterday evening for hypotension, sodium trended up to 119. Discontinued Lasix due to hypotension. 1 out of 2 blood cultures growing gram positive bacillus. Continues on vancomycin and ceftriaxone. TSH was mildly elevated, ordered free T4. Cortisol level was normal. Hemoglobin trend stable overnight however lower than upon admission. Liver ultrasound showed a bidirectional main portal vein flow, pelvic ultrasound did not show increased endometrial thickness as previously suggested on CT scan. Physical exam General: Chronically ill appearing 51-year-old female in no apparent distress. Head: Atraumatic, normal inspection. Eyes: normal appearance, no scleral icterus. Neck: full ROM Respiratory: no respiratory distress. Cardiovascular: Regular tachycardia, S1, S2. GI/Abdominal: Distended, soft, nontender, no guarding. Extremities: full range of motion, nontender. Neurological: CN II-XII intact, intact motor, intact sensation. Psychiatric: normal mood. Skin: Bilateral lower extremity redness and warmth with appearance of cellulitis, left lower extremity more impressive than right lower extremity. Constitutional Vitals: Vital Signs Temp Pulse Resp BP Pulse Ox 98 F 122 H 21 99/70 97 03/05/22 12:05 03/05/22 12:05 03/05/22 08:01 03/05/22 12:05 03/05/22 12:05 Period Temp Pulse Resp BP Sys/Hutton Pulse Ox Last 24 Hr 97.7 F-98.8 F 112-135 10-24 71-144/54-126 93-100 Intake and Output 03/04/22 03/05/22 03/05/22 21:59 05:59 13:59 Intake Total 837 830 770 Output Total 500 100 150 Balance 337 730 620 Weight 66.395 kg Intake & Output: Intake & Output 03/04/22 03/05/22 03/05/22 21:59 05:59 13:59 Intake Total 837 830 770 Output Total 500 100 150 Balance 337 730 620 Weight 66.395 kg Intake: Nourishment/Supplement quantity 237 240 (ml) IV 350 50 Vancomycin 1,000 mg In Sodium 250 Chloride 0.9% 250 ml @ 250 mls/ hr IV Q12H [facility] Rx#:[id number] Rocephin 2 gm In Dextrose 5% in 50 Water 50 ml @ 100 mls/hr IV DAILY [facility] Rx#:[id number] Oral 600 480 240 GI Tube Flush 240 Output: Void Amount 150 50 Urine/Stool Mix 350 100 Stool 100 Other: Meal Dinner Lunch Percent of Meal Consumed 25% 25% Feeding Ability Independent Nourishment/Supplement name Ensure ensure elive Stool Size Small Stool Color Brown Green Stool Consistency Loose Soft Formed # Bowel Movements 1 1 OBJ DATA Labs CBC & Chem 7: 03/05/22 08:02 03/05/22 05:22 Labs: Abnormal Lab Results 03/05/22 03/05/22 03/05/22 08:02 08:02 08:02 WBC RBC Hgb 9.0 L Hct POC Hct RDW Plt Count Neut % (Auto) Lymph % (Auto) Ralls # (Auto) Absolute Neutrophils Platelet Estimate RBC Morphology Anisocytosis PT INR VBG Lactic Acid POC Sodium Sodium POC Chloride Chloride Carbon Dioxide POC Total CO2 POC BUN BUN Glucose POC Glucose Osmolality Calcium POC WB Ioniz Calcium Total Bilirubin Direct Bilirubin GGT AST Alkaline Phosphatase Lactate Dehydrogenase Total Protein Albumin Albumin/Globulin Ratio TSH 6.49 H Urine Appearance Vancomycin Trough 20.5 H* 03/05/22 03/05/22 03/05/22 05:23 05:22 00:42 WBC RBC 2.98 L Hgb 8.8 L Hct 25.1 L POC Hct RDW 15.6 H Plt Count 114 L Neut % (Auto) Lymph % (Auto) Ralls # (Auto) Absolute Neutrophils Platelet Estimate Decreased A RBC Morphology Abnormal A Anisocytosis 1+ A PT INR VBG Lactic Acid POC Sodium Sodium 119 L* 117 L* POC Chloride Chloride 90 L Carbon Dioxide 19 L POC Total CO2 POC BUN BUN 23 H Glucose 109 H POC Glucose Osmolality Calcium 8.2 L POC WB Ioniz Calcium Total Bilirubin 2.7 H Direct Bilirubin 1.6 H GGT 81 H AST 47 H Alkaline Phosphatase 197 H Lactate Dehydrogenase 315 H Total Protein 5.2 L Albumin 2.7 L Albumin/Globulin Ratio TSH Urine Appearance Vancomycin Trough 03/04/22 03/04/22 03/04/22 18:27 18:27 12:09 WBC RBC Hgb 9.5 L Hct POC Hct RDW Plt Count Neut % (Auto) Lymph % (Auto) Ralls # (Auto) Absolute Neutrophils Platelet Estimate RBC Morphology Anisocytosis PT INR VBG Lactic Acid POC Sodium Sodium 117 L* 117 L* POC Chloride Chloride Carbon Dioxide POC Total CO2 POC BUN BUN Glucose POC Glucose Osmolality Calcium POC WB Ioniz Calcium Total Bilirubin Direct Bilirubin GGT AST Alkaline Phosphatase Lactate Dehydrogenase Total Protein Albumin Albumin/Globulin Ratio TSH Urine Appearance Vancomycin Trough 03/04/22 03/04/22 03/04/22 12:00 09:58 04:04 WBC 12.3 H RBC 3.29 L Hgb 9.8 L 9.5 L Hct 27.2 L POC Hct RDW 15.3 H Plt Count Neut % (Auto) Lymph % (Auto) Ralls # (Auto) Absolute Neutrophils Platelet Estimate RBC Morphology Abnormal A Anisocytosis 1+ A PT INR VBG Lactic Acid POC Sodium Sodium 118 L* POC Chloride Chloride Carbon Dioxide POC Total CO2 POC BUN BUN Glucose POC Glucose Osmolality Calcium POC WB Ioniz Calcium Total Bilirubin Direct Bilirubin GGT AST Alkaline Phosphatase Lactate Dehydrogenase Total Protein Albumin Albumin/Globulin Ratio TSH Urine Appearance Vancomycin Trough 03/04/22 03/03/22 03/03/22 04:03 22:15 22:15 WBC RBC Hgb 9.9 L Hct POC Hct RDW Plt Count Neut % (Auto) Lymph % (Auto) Ralls # (Auto) Absolute Neutrophils Platelet Estimate RBC Morphology Anisocytosis PT INR VBG Lactic Acid POC Sodium Sodium 117 L* 116 L* POC Chloride Chloride 90 L Carbon Dioxide 18 L POC Total CO2 POC BUN BUN 26 H Glucose POC Glucose Osmolality Calcium 7.8 L POC WB Ioniz Calcium Total Bilirubin 2.9 H Direct Bilirubin 1.8 H GGT 88 H AST 57 H Alkaline Phosphatase 216 H Lactate Dehydrogenase 335 H Total Protein 5.2 L Albumin 2.3 L Albumin/Globulin Ratio 0.8 L TSH Urine Appearance Vancomycin Trough 03/03/22 03/03/22 03/03/22 16:22 15:53 14:07 WBC RBC Hgb 9.6 L Hct POC Hct RDW Plt Count Neut % (Auto) Lymph % (Auto) Ralls # (Auto) Absolute Neutrophils Platelet Estimate RBC Morphology Anisocytosis PT INR VBG Lactic Acid 2.3 H POC Sodium Sodium 118 L* POC Chloride Chloride 89 L Carbon Dioxide 18 L POC Total CO2 POC BUN BUN 26 H Glucose 118 H POC Glucose Osmolality Calcium 7.8 L POC WB Ioniz Calcium Total Bilirubin 3.3 H Direct Bilirubin 2.0 H GGT 86 H AST 65 H Alkaline Phosphatase 232 H Lactate Dehydrogenase 381 H Total Protein 5.4 L Albumin 2.5 L Albumin/Globulin Ratio 0.9 L TSH Urine Appearance Vancomycin Trough 03/03/22 03/03/22 03/03/22 13:42 12:11 12:11 WBC RBC Hgb Hct POC Hct RDW Plt Count Neut % (Auto) Lymph % (Auto) Ralls # (Auto) Absolute Neutrophils Platelet Estimate RBC Morphology Anisocytosis PT 18.3 H INR 1.5 H VBG Lactic Acid POC Sodium Sodium 116 L* POC Chloride Chloride 87 L Carbon Dioxide 17 L POC Total CO2 POC BUN BUN 29 H Glucose 111 H POC Glucose Osmolality 264 L Calcium 8.4 L POC WB Ioniz Calcium Total Bilirubin 3.6 H Direct Bilirubin GGT AST 63 H Alkaline Phosphatase 242 H Lactate Dehydrogenase Total Protein 5.5 L Albumin 2.6 L Albumin/Globulin Ratio 0.9 L TSH Urine Appearance Hazy A Vancomycin Trough 03/03/22 03/03/22 12:11 12:09 WBC 13.1 H RBC 3.20 L Hgb 9.9 L Hct 27.6 L POC Hct 33.0 L RDW 15.4 H Plt Count Neut % (Auto) 79.2 H Lymph % (Auto) 11.8 L Ralls # (Auto) 1.06 H Absolute Neutrophils 10.34 H Platelet Estimate RBC Morphology Anisocytosis PT INR VBG Lactic Acid POC Sodium 121 L Sodium POC Chloride 91 L Chloride Carbon Dioxide POC Total CO2 21.0 L POC BUN 32 H BUN Glucose POC Glucose 112 H Osmolality Calcium POC WB Ioniz Calcium 1.12 L Total Bilirubin Direct Bilirubin GGT AST Alkaline Phosphatase Lactate Dehydrogenase Total Protein Albumin Albumin/Globulin Ratio TSH Urine Appearance Vancomycin Trough Meds: Medications Belladonna/Phenobarbital (Phenobarb/Hyoscy/Atropine/Scop 1 Dose Bottle) 1 dose PO Q4HP PRN PRN Reason: Dyspepsia Last Admin: 03/04/22 18:57 Dose: 1 dose Documented by: Ceftriaxone Sodium 2 gm/ (Dextrose) 50 mls @ 100 mls/hr IV DAILY [facility]; Protocol Last Infusion: 03/05/22 09:44 Dose: Infused Documented by: Vancomycin HCl 750 mg/ Sodium (Chloride) 250 mls @ 250 mls/hr IV Q12H [facility] Iron Carb/Multivit/Larimer/Folic Acid (Multivit,Ther Iron,Ca,Fa & Min 1 Tablet) 1 tab PO DAILY [facility] Last Admin: 03/05/22 09:14 Dose: 1 tab Documented by: Lactulose (Lactulose 20 Gm/30 Ml Oral.Josefina) 10 gm PO DAILYP PRN PRN Reason: Constipation Lactulose (Lactulose 20 Gm/30 Ml Oral.Josefina) 20 gm PO QIDP PRN PRN Reason: CONSTIPATION Midodrine (Midodrine 5 Mg Tablet) 7.5 mg PO QDAY@0800,1200,1700 [facility] Last Admin: 03/05/22 12:24 Dose: 7.5 mg Documented by: Mirtazapine (Mirtazapine 15 Mg Tablet) 15 mg PO HS [facility] Last Admin: 03/04/22 21:17 Dose: 15 mg Documented by: Ondansetron HCl (Ondansetron 4 Mg/2 Ml Vial) 4 mg IV Q4HP PRN; Protocol PRN Reason: Nausea And Vomiting Oxycodone HCl (Oxycodone Hcl 5 Mg Tablet) 5 mg PO BIDP PRN; Protocol PRN Reason: Pain Last Admin: 03/04/22 21:17 Dose: 5 mg Documented by: Pantoprazole Sodium (Pantoprazole 40 Mg Vial) 40 mg IV QAMAC [facility] Last Admin: 03/05/22 07:55 Dose: 40 mg Documented by: Senna (Sennosides 1 Tablet) 2 tab PO HSP PRN PRN Reason: Constipation Sodium Chloride (0.9 % Sodium Chloride 10 Ml Syringe) 10 ml IV Q8 [facility] Last Admin: 03/05/22 05:42 Dose: 10 ml Documented by: Trazodone HCl (Trazodone Hcl 50 Mg Tablet) 50 mg PO QHS PRN PRN Reason: insomnia Vancomycin HCl (Vancomycin Per Pharmacy) 1 order IV UD [facility]; Protocol A/P Narrative A/P Narrative: Assessment: 51-year-old female with a history of recent cellulitis of her lower extremity, chronic hyponatremia, decompensated alcoholic liver cirrhosis compli cated by recurrent diuretic resistant ascites requiring frequent therapeutic paracentesis admitted for severe hyponatremia and evidence of sepsis probably secondary to lower extremity cellulitis. The patient was recently started on cephalexin for cellulitis. The patient also had a therapeutic paracentesis on 03/02/2022 for 3.4 L of fluid, the patient reportedly received albumin IV following the paracentesis. Urinalysis was not suggestive of UTI. The patient is currently being evaluated for liver transplant candidacy at the [facility]. 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 -Follow blood cultures x2. -Monitor urine output and volume status. -Monitor sodium, avoid correction > 8 mmol/L/24 hrs. -Monitor hemoglobin. -Analgesics as needed for lower extremity pain secondary to cellulitis. -Midodrine 3 times daily. -Continue home mirtazapine, lactulose, trazodone at bedtime as needed. -Holding home Lasix, spironolactone, metoprolol for now. -Fluid and sodium restricted diet. -Wound care for lower extremities. -Nutrition consult. -PT consult. -Monitor for recurrent ascites, therapeutic paracentesis as needed. -CODE STATUS: Full -Disposition: Home when stable. Follow-up with hepatology for ongoing evaluation for liver transplant. Time Spent With Patient Time: Total time spent is greater than 50% in coordination of care (as documented) at patient's floor/unit and/or counseling patient: QUALITY VTE Deep Vein Thrombosis/Pulmonary Embolism Present on Admission: No
[2022-03-05] MEDS: VANCOMYCIN 750 MG in 0.9 % SODIUM CHLORIDE 250 ML IV SCH (13:22)
[2022-03-05] MEDS: MIRTAZAPINE 15 MG TABLET PO SCH (21:31)
[2022-03-06] MEDS: VANCOMYCIN 750 MG in 0.9 % SODIUM CHLORIDE 250 ML IV SCH ×2 (00:46→12:58)
[2022-03-06] MEDS: oxyCODONE HCL 5 MG TABLET PO PRN ×2 (00:46→21:52)
[2022-03-06] MEDS: 0.9 % SODIUM CHLORIDE 10 ML SYRINGE IV SCH ×3 (05:30→21:53)
[2022-03-06 06:20] LABS: Hematocrit 26.2 % (34.1-44.9); Hemoglobin 8.9 g/dL (11.2-15.7); Mean Cell Volume 85.1 fL (80.0-100.0); Mean Platelet Volume 8.8 fL (7.4-10.4); Platelet Count 125 K/mcL (140-440); RBC 3.08 M/mcL (3.59-5.38); Red Cell Distribution Width 15.9 % (11.5-14.5); WBC 10.9 K/mcL (4.5-11.0)
[2022-03-06] MEDS: PANTOPRAZOLE 40 MG VIAL IV SCH (06:36)
[2022-03-06 06:40] LABS: ALT/SGPT 19 U/L (<40); AST/SGOT 48 U/L (<32); Albumin 2.4 gm/dL (3.2-5.2); Albumin/Globulin Ratio 0.9 (1.0-2.3); Alkaline Phosphatase 189 U/L (39-117); Bilirubin,Direct 1.4 mg/dL (<0.3); Bilirubin,Total 2.4 mg/dL (0.1-1.0); Blood Urea Nitrogen 20 mg/dL (6-20); Calcium 8.2 mg/dL (8.6-10.4); Carbon Dioxide 19 mmol/L (22-30); Chloride 92 mmol/L (96-108); Globulin 2.7 gm/dL (2.2-3.7); Glomerular Filtration Rate 85; Glucose 110 mg/dL (70-105); Lactate Dehydrogenase 302 U/L (135-225); Phosphorous 2.5 mg/dL (2.5-4.5); Triglycerides 52 mg/dL (<150); Uric Acid 4.5 mg/dL (2.5-8.0)
[2022-03-06 06:50] LABS: Anisocytosis 1+ (None Seen); Band Neutrophils % 4 % (0-10); Eosinophils % (Manual) 7 % (0-7); Hypochromasia 1+ (None Seen); Lymphocytes % 19 % (15-49); Monocytes % (Manual) 11 % (1-12); Platelet Estimate DECREASED (Normal); RBC Fragments OCC (None Seen); RBC Morphology ABNORMAL (Normal); Segmented Neutrophils % 59 % (38-78)
[2022-03-06] MEDS ORDERED: SODIUM CHLORIDE 3 % 500 ML IV SCH (07:30)
[2022-03-06] MEDS: MIDODRINE 5 MG TABLET PO SCH ×3 (08:08→19:22)
[2022-03-06] MEDS: cefTRIAXone 2 GM in DEXTROSE 5% IN WATER 50 ML IV SCH ×2 (09:41→11:15)
[2022-03-06] MEDS: MULTIVIT,THER IRON,CA,FA & MIN 1 TABLET PO SCH (09:41)
--- NOTE | 2022-03-06 17:38 | Internal Med Progress Note ---
SUBJECTIVE Subjective Patient information: Note initiated : 03/06/22 at 5:31 pm Service Date, if different from initiated Date: [] Patient: Berkley Elizalde 51 y/o F admitted on 03/03/22 for Low Sodium. Chief Complaint: [] Interval history: Ms. 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 The patient had a therapeutic paracentesis on 03/02/2022 with 3.4 L of fluid removed. Prior to the paracentesis, the patient had labs drawn which showed a sodium level of 112. The patient was told to come to the ED for hyponatremia. In the ED, the patient was found to have a sodium level of 116. Additionally, the patient was tachycardic and hypotensive and had leukocytosis as well as anemia with a hemoglobin of 9.9, last hemoglobin was 10.9 on 02/18/2022. The patient was recently found to have cellulitis of her lower extremities and started on cephalexin. She says that the cellulitis has improved since starting cephalexin. Additionally, the patient says that she has been taking ciprofloxacin for spontaneous bacterial peritonitis prophylaxis. The patient was recently seen by cylinder block hole reliner in [place] working with the [facility] liver transplant service. The patient says that she is currently in the process of being evaluated for liver transplant. The patient has had multiple paracentesis since her diagnosis of decompensated liver cirr hosis earlier this year. In the ED, the patient felt like she was unwell but could not place her finger on the root cause. She thinks that her lower extremity cellulitis has improved on antibiotics. We discussed the plan of care as well as CODE STATUS in detail. The patient wishes to be full code. 03/04 Feels better today, serum sodium about the same after 1.5 L of normal saline. Repeat lactic acid normal. Started Lasix 40 mg IV twice daily, following sodium closely. Blood culture showing no growth at day 1, continued vancomycin IV and ceftriaxone.Hemoglobin trend stable. Reviewed prior images, ordered portal vein Doppler and pelvic ultrasound to evaluate for portal vein thrombus and endometrial thickening, respectively. Chest x-ray radiology report impression was moderate consolidated infiltrate or atelectasis in the left lower lobe and moderate left pleural effusion. 03/05 Scheduled midodrine for persistent hypotension, received albumin IV yesterday evening for hypotension, sodium trended up to 119. Discontinued Lasix due to hypotension. 1 out of 2 blood cultures growing gram positive bacillus. Continues on vancomycin and ceftriaxone. TSH was mildly elevated, ordered free T4. Cortisol level was normal. Hemoglobin trend stable overnight however lower than upon admission. Liver ultrasound showed a bidirectional main portal vein flow, pelvic ultrasound did not show increased endometrial thickness as previously suggested on CT scan. 03/06 Serum sodium was 119 this morning, started 3% saline IV for 90 mL. Follow-up serum sodium was 123. Increased midodrine to 10 mg 3 times daily. 1/2 blood cultures growing Lactobacillus Gasseri, likely a skin contaminant. Discontinued vancomycin, continued ceftriaxone. Cellulitis has improved significantly. The patient feels like she is due for another paracentesis soon. Physical exam General: Chronically ill appearing 51-year-old female in no apparent distress. Head: Atraumatic, normal inspection. Eyes: normal appearance, no scleral icterus. Neck: full ROM Respiratory: no respiratory distress. Cardiovascular: Regular tachycardia, S1, S2. GI/Abdominal: Distended, soft, nontender, no guarding. Extremities: full range of motion, nontender. Neurological: CN II-XII intact, intact motor, intact sensation. Psychiatric: normal mood. Skin: Bilateral lower extremity redness and warmth with appearance of cellulitis, left lower extremity more impressive than right lower extremity. Constitutional Vitals: Vital Signs Temp Pulse Resp BP Pulse Ox 98.5 F 119 H 18 102/74 98 03/06/22 08:00 03/06/22 11:42 03/06/22 04:40 03/06/22 11:08 03/06/22 11:42 Period Temp Pulse Resp BP Sys/[place] Pulse Ox Last 24 Hr 97.8 F-98.5 F 115-126 16-20 89-109/55-92 95-100 Intake and Output 03/06/22 03/06/22 03/06/22 05:59 13:59 21:59 Intake Total 610 540 Output Total 200 75 Balance 410 465 Intake & Output: Intake & Output 03/06/22 03/06/22 03/06/22 05:59 13:59 21:59 Intake Total 610 540 Output Total 200 75 Balance 410 465 Intake: IV 250 300 Vancomycin 750 mg In Sodium 250 250 Chloride 0.9% 250 ml @ 250 mls/ hr IV Q12H [facility] Rx#:[id number] Rocephin 2 gm In Dextrose 5% in 50 Water 50 ml @ 100 mls/hr IV DAILY [facility] Rx#:[id number] Oral 360 120 GI Tube Flush 120 Output: Void Amount 75 Urine/Stool Mix 200 Other: Urine Color Bright Yellow Stool Size Large Stool Consistency Soft # Bowel Movements 1 OBJ DATA Labs CBC & Chem 7: 03/06/22 05:29 03/06/22 12:39 Labs: Abnormal Lab Results 03/06/22 03/06/22 03/06/22 12:39 05:29 05:29 WBC RBC 3.08 L Hgb 8.9 L Hct 26.2 L RDW 15.9 H Plt Count 125 L Platelet Estimate Decreased A RBC Morphology Abnormal A Hypochromasia 1+ A Anisocytosis 1+ A RBC Fragments Occ A Sodium 123 L 119 L* Chloride 92 L Carbon Dioxide 19 L BUN Glucose 110 H Calcium 8.2 L Total Bilirubin 2.4 H Direct Bilirubin 1.4 H GGT 78 H AST 48 H Alkaline Phosphatase 189 H Lactate Dehydrogenase 302 H Total Protein 5.1 L Albumin 2.4 L Albumin/Globulin Ratio 0.9 L TSH Vancomycin Trough 03/05/22 03/05/22 03/05/22 14:44 08:02 08:02 WBC RBC Hgb 9.0 L Hct RDW Plt Count Platelet Estimate RBC Morphology Hypochromasia Anisocytosis RBC Fragments Sodium 119 L* Chloride Carbon Dioxide BUN Glucose Calcium Total Bilirubin Direct Bilirubin GGT AST Alkaline Phosphatase Lactate Dehydrogenase Total Protein Albumin Albumin/Globulin Ratio TSH 6.49 H Vancomycin Trough 03/05/22 03/05/22 03/05/22 08:02 05:23 05:22 WBC RBC 2.98 L Hgb 8.8 L Hct 25.1 L RDW 15.6 H Plt Count 114 L Platelet Estimate Decreased A RBC Morphology Abnormal A Hypochromasia Anisocytosis 1+ A RBC Fragments Sodium 119 L* Chloride 90 L Carbon Dioxide 19 L BUN 23 H Glucose 109 H Calcium 8.2 L Total Bilirubin 2.7 H Direct Bilirubin 1.6 H GGT 81 H AST 47 H Alkaline Phosphatase 197 H Lactate Dehydrogenase 315 H Total Protein 5.2 L Albumin 2.7 L Albumin/Globulin Ratio TSH Vancomycin Trough 20.5 H* 03/05/22 03/04/22 03/04/22 00:42 18:27 18:27 WBC RBC Hgb 9.5 L Hct RDW Plt Count Platelet Estimate RBC Morphology Hypochromasia Anisocytosis RBC Fragments Sodium 117 L* 117 L* Chloride Carbon Dioxide BUN Glucose Calcium Total Bilirubin Direct Bilirubin GGT AST Alkaline Phosphatase Lactate Dehydrogenase Total Protein Albumin Albumin/Globulin Ratio TSH Vancomycin Trough 03/04/22 03/04/22 03/04/22 12:09 12:00 09:58 WBC RBC Hgb 9.8 L Hct RDW Plt Count Platelet Estimate RBC Morphology Hypochromasia Anisocytosis RBC Fragments Sodium 117 L* 118 L* Chloride Carbon Dioxide BUN Glucose Calcium Total Bilirubin Direct Bilirubin GGT AST Alkaline Phosphatase Lactate Dehydrogenase Total Protein Albumin Albumin/Globulin Ratio TSH Vancomycin Trough 03/04/22 03/04/22 03/03/22 04:04 04:03 22:15 WBC 12.3 H RBC 3.29 L Hgb 9.5 L Hct 27.2 L RDW 15.3 H Plt Count Platelet Estimate RBC Morphology Abnormal A Hypochromasia Anisocytosis 1+ A RBC Fragments Sodium 117 L* 116 L* Chloride 90 L Carbon Dioxide 18 L BUN 26 H Glucose Calcium 7.8 L Total Bilirubin 2.9 H Direct Bilirubin 1.8 H GGT 88 H AST 57 H Alkaline Phosphatase 216 H Lactate Dehydrogenase 335 H Total Protein 5.2 L Albumin 2.3 L Albumin/Globulin Ratio 0.8 L TSH Vancomycin Trough 03/03/22 03/03/22 03/03/22 22:15 16:22 15:53 WBC RBC Hgb 9.9 L 9.6 L Hct RDW Plt Count Platelet Estimate RBC Morphology Hypochromasia Anisocytosis RBC Fragments Sodium 118 L* Chloride 89 L Carbon Dioxide 18 L BUN 26 H Glucose 118 H Calcium 7.8 L Total Bilirubin 3.3 H Direct Bilirubin 2.0 H GGT 86 H AST 65 H Alkaline Phosphatase 232 H Lactate Dehydrogenase 381 H Total Protein 5.4 L Albumin 2.5 L Albumin/Globulin Ratio 0.9 L TSH Vancomycin Trough Meds: Medications Belladonna/Phenobarbital (Phenobarb/Hyoscy/Atropine/Scop 1 Dose Bottle) 1 dose PO Q4HP PRN PRN Reason: Dyspepsia Last Admin: 03/04/22 18:57 Dose: 1 dose Documented by: Ceftriaxone Sodium 2 gm/ (Dextrose) 50 mls @ 100 mls/hr IV DAILY [facility]; Protocol Last Infusion: 03/06/22 11:45 Dose: Infused Documented by: Iron Carb/Multivit/[place]/Folic Acid (Multivit,Ther Iron,Ca,Fa & Min 1 Tablet) 1 tab PO DAILY [facility] Last Admin: 03/06/22 09:41 Dose: 1 tab Documented by: Lactulose (Lactulose 20 Gm/30 Ml Oral.Josefina) 20 gm PO QIDP PRN PRN Reason: CONSTIPATION Midodrine (Midodrine 5 Mg Tablet) 10 mg PO QDAY@0800,1200,1700 [facility] Last Admin: 03/06/22 12:26 Dose: 10 mg Documented by: Mirtazapine (Mirtazapine 15 Mg Tablet) 15 mg PO HS [facility] Last Admin: 03/05/22 21:31 Dose: 15 mg Documented by: Ondansetron HCl (Ondansetron 4 Mg/2 Ml Vial) 4 mg IV Q4HP PRN; Protocol PRN Reason: Nausea And Vomiting Oxycodone HCl (Oxycodone Hcl 5 Mg Tablet) 5 mg PO BIDP PRN; Protocol PRN Reason: Pain Last Admin: 03/06/22 00:46 Dose: 5 mg Documented by: Pantoprazole Sodium (Pantoprazole 40 Mg Vial) 40 mg IV QAMAC [facility] Last Admin: 03/06/22 06:36 Dose: 40 mg Documented by: Senna (Sennosides 1 Tablet) 2 tab PO HSP PRN PRN Reason: Constipation Sodium Chloride (0.9 % Sodium Chloride 10 Ml Syringe) 10 ml IV Q8 [facility] Last Admin: 03/06/22 12:58 Dose: 10 ml Documented by: Trazodone HCl (Trazodone Hcl 50 Mg Tablet) 50 mg PO QHS PRN PRN Reason: insomnia A/P Narrative A/P Narrative: Assessment: 51-year-old female with a history of recent cellulitis of her lower extremity, chronic hyponatremia, decompensated alcoholic liver cirrhosis complicated by recurrent diuretic resistant ascites requiring frequent therapeutic paracentesis admitted for severe hyponatremia and evidence of sepsis probably secondary to lower extremity cellulitis. The patient was recently started on cephalexin for cellulitis. The patient also had a therapeutic paracentesis on 03/02/2022 for 3.4 L of fluid, the patient reportedly received albumin IV following the paracentesis. Urinalysis was not suggestive of UTI. The patient is currently being evaluated for liver transplant candidacy at the [facility]. 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 -Discontinue vancomycin IV. -Follow blood cultures. -Monitor urine output and volume status. -3% saline IV today followed by a sodium recheck. -Monitor sodium, avoid correction > 8 mmol/L/24 hrs. -Monitor hemoglobin. -Analgesics as needed for lower extremity pain secondary to cellulitis. -Midodrine 3 times daily. -Continue home mirtazapine, lactulose, trazodone at bedtime as needed. -Holding home Lasix, spironolactone, metoprolol for now. -Therapeutic paracentesis as needed. -Fluid and sodium restricted diet. -Wound care for lower extremities. -Nutrition consult. -PT consult. -CODE STATUS: Full -Disposition: Home when stable if serum sodium level stabilizes near previous baseline, otherwise will look into transfer to [facility]. Follow-up with hepatology for ongoing evaluation for liver transplant, screening EGD for varices secondary to portal hypertension. Time Spent With Patient Time: Total time spent is greater than 50% in coordination of care (as documented) at patient's floor/unit and/or counseling patient: QUALITY VTE Deep Vein Thrombosis/Pulmonary Embolism Present on Admission: No
[2022-03-06] MEDS ORDERED: ALBUMIN HUMAN 25 GM/100 ML BAG IV ONE ×2 (18:58→19:14)
[2022-03-06] MEDS ORDERED: ALBUMIN HUMAN 0 ML IV ONE (19:08)
[2022-03-06 19:52] LABS: Total Protein,Peritoneal Fluid 0.3 gm/dL
--- NOTE | 2022-03-06 20:05 | Procedure Note ---
PROC Paracentesis Consent obtained: written consent Date of Procedure: 03/06/22 Time out performed: Yes Indication: Ascites Procedure: therapeutic paracentesis Location: RLQ Local anesthetic used: lidocaine 1% Amount of anesthesia used (mLs): 9 Bedside ultrasound used: yes, Ascites confirmed and location marked Preparation: sterile prep and drape Amount of fluid obtained: 5,100 Fluid: cloudy Size of needle used: 19 Post procedure exam: awake, alert Patient tolerated procedure: well and no complications
[2022-03-06 20:26] LABS: Mesothelial,Peritoneal Fluid 10 %; Monocyte,Peritoneal Fluid 31 %; Neutrophils,Peritoneal Fluid 6 %; Nucleated Cel,Peritoneal Fluid 226 /cumm; RBC,Peritoneal Fluid <50,000 /cumm
[2022-03-06] MEDS: MIRTAZAPINE 15 MG TABLET PO SCH (21:52)
[2022-03-07] MEDS: 0.9 % SODIUM CHLORIDE 10 ML SYRINGE IV SCH (05:23)
[2022-03-07] MEDS: PANTOPRAZOLE 40 MG VIAL IV SCH (07:20)
[2022-03-07] MEDS: MIDODRINE 5 MG TABLET PO SCH ×2 (07:22→11:15)
[2022-03-07 07:25] LABS: Hematocrit 24.8 % (34.1-44.9); Hemoglobin 8.7 g/dL (11.2-15.7); Mean Cell Volume 86.1 fL (80.0-100.0); Mean Corpuscular HGB Conc 35.1 g/dL (31.0-36.0); Mean Platelet Volume 9.3 fL (7.4-10.4); Platelet Count 114 K/mcL (140-440); RBC 2.88 M/mcL (3.59-5.38); WBC 10.6 K/mcL (4.5-11.0)
[2022-03-07 07:27] LABS: ALT/SGPT 16 U/L (<40); AST/SGOT 42 U/L (<32); Albumin 3.1 gm/dL (3.2-5.2); Albumin/Globulin Ratio 1.7 (1.0-2.3); Alkaline Phosphatase 154 U/L (39-117); Bilirubin,Direct 1.3 mg/dL (<0.3); Bilirubin,Total 2.3 mg/dL (0.1-1.0); Blood Urea Nitrogen 17 mg/dL (6-20); Carbon Dioxide 18 mmol/L (22-30); Chloride 94 mmol/L (96-108); Globulin 1.8 gm/dL (2.2-3.7); Glomerular Filtration Rate 105; Glucose 99 mg/dL (70-105); Lactate Dehydrogenase 268 U/L (135-225); Phosphorous 2.2 mg/dL (2.5-4.5); Triglycerides 49 mg/dL (<150); Uric Acid 4.4 mg/dL (2.5-8.0)
[2022-03-07 07:57] LABS: Anisocytosis 1+ (None Seen); Band Neutrophils % 2 % (0-10); Basophils % (Manual) 1 % (0-2); Eosinophils % (Manual) 2 % (0-7); Hypochromasia OCC (None Seen); Lymphocytes % 16 % (15-49); Monocytes % (Manual) 10 % (1-12); Platelet Estimate DECREASED (Normal); RBC Morphology ABNORMAL (Normal); Segmented Neutrophils % 69 % (38-78)
[2022-03-07] MEDS: MULTIVIT,THER IRON,CA,FA & MIN 1 TABLET PO SCH (08:17)
[2022-03-07] MEDS: cefTRIAXone 2 GM in DEXTROSE 5% IN WATER 50 ML IV SCH (08:50)
[2022-03-07 08:57] LABS: Iron 30 ug/dL (37-145); TIBC Calculation 148 ug/dl (228-428); Transferrin % Saturation 20 % (15-50)
--- NOTE | 2022-03-07 11:16 | Discharge Summary ---
Discharge Provider Provider Patient information: Note initiated : 03/07/22 at 11:06 am Service Date, if different from initiated Date: [] Patient: Berkley lEizalde 51 y/o F admitted on 03/03/22 for Low Sodium. Chief Complaint: [] Date of admission: 03/03/22 15:51 Discharge date: 03/07/22 Primary care physician: Lencho Pandey Consults: 03/03/22 Consult to Physician [CONS] Stat Comment: Consulting Provider: Antoni Lopez Reason For Exam: Physician to Consult Discharge Meds Discharge Medications Home Medications multivitamin 1 tab PO DAILY 12/06/17 [History Confirmed 03/03/22 Last Taken 12/05/21] trazodone 50 mg tablet 50 mg PO QHS 03/10/21 [History Confirmed 03/03/22 Last Taken Unknown] lactulose 20 gram/30 mL oral solution 30 ml PO QIDP PRN #1200 ml 12/10/21 [Rx Confirmed 03/03/22 Last Taken Unknown] cephalexin 500 mg capsule 1 cap PO QID 03/03/22 [History Confirmed 03/03/22 Last Taken Unknown] mirtazapine 15 mg tablet 1 tab PO HS 03/03/22 [History Confirmed 03/03/22 Last Taken Unknown] oxycodone 5 mg tablet 1 tab PO BIDP PRN 03/03/22 [History Confirmed 03/03/22 Last Taken Unknown] ciprofloxacin HCl 500 mg tablet (Cipro) 500 mg PO DAILY #30 tab 03/07/22 [Rx Last Taken Unknown] midodrine 5 mg tablet 10 mg PO QDAY@0800,1200,1700 #180 tab 03/07/22 [Rx Last Taken Unknown] COURSE Hospital Course Hospital course: Ms. 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 The patient had a therapeutic paracentesis on 03/02/2022 with 3.4 L of fluid removed. Prior to the paracentesis, the patient had labs drawn which showed a sodium level of 112. The patient was told to come to the ED for hyponatremia. In the ED, the patient was found to have a sodium level of 116. Additionally, the patient was tachycardic and hypotensive and had leukocytosis as well as anemia with a hemoglobin of 9.9, last hemoglobin was 10.9 on 02/18/2022. The patient was recently found to have cellulitis of her lower extremities and started on cephalexin. She says that the cellulitis has improved since starting cephalexin. Additionally, the patient says that she has been taking ciprofloxacin for spontaneous bacterial peritonitis prophylaxis. The patient was recently seen by physics tutor in [place] working with the [facility] liver transplant service. The patient says that she is currently in the process of being evaluated for liver transplant. The patient has had multiple paracentesis since her diagnosis of decompensated liver cirrhosis earlier this year. In the ED, the patient felt like she was unwell but could not place her finger on the root cause. She thinks that her lower extremity cellulitis has improved on antibiotics. We discussed the plan of care as well as CODE STATUS in detail. The patient wishes to be full code. 03/04 Feels better today, serum sodium about the same after 1.5 L of normal saline. Repeat lactic acid normal. Started Lasix 40 mg IV twice daily, following sodium closely. Blood culture showing no growth at day 1, continued vancomycin IV and ceftriaxone.Hemoglobin trend stable. Reviewed prior images, ordered portal vein Doppler and pelvic ultrasound to evaluate for portal vein thrombus and endometrial thickening, respectively. Chest x-ray radiology report impression was moderate consolidated infiltrate or atelectasis in the left lower lobe and moderate left pleural effusion. 03/05 Scheduled midodrine for persistent hypotension, received albumin IV yesterday evening for hypotension, sodium trended up to 119. Discontinued Lasix due to hypotension. 1 out of 2 blood cultures growing gram positive bacillus. Continues on vancomycin and ceftriaxone. TSH was mildly elevated, ordered free T4. Cortisol level was normal. Hemoglobin trend stable overnight however lower than upon admission. Liver ultrasound showed a bidirectional main portal vein flow, pelvic ultrasound did not show increased endometrial thickness as previously suggested on CT scan. 03/06 Serum sodium was 119 this morning, started 3% saline IV for 90 mL. Follow-up serum sodium was 123. Increased midodrine to 10 mg 3 times daily. 1/2 blood cultures growing Lactobacillus Gasseri, likely a skin contaminant. Discontinued vancomycin, continued ceftriaxone. Cellulitis has improved significantly. The patient feels like she is due for another paracentesis soon. Paracentesis at bedside for 5100 mL of cloudy fluid. Cell count was not consistent with spontaneous bacterial peritonitis. SAAG was consistent with ascites secondary to portal hypertension, peritoneal protein level was 0.3. Added on cytology as this was not done previously. 03/07 Serum sodium level 120, the patient wishes to discharge to home. Hemoglobin 8.7 today, iron studies consistent with chronic inflammation We had a long discussion for shared decision making regarding diuretics, the patient did not want to start diuretics at this time as she has not tolerated them well in the past. I told the patient her decision will likely increase the frequency of paracentesis, she understands this. The patient has a standing order with radiology for therapeutic paracentesis. The patient is tolerating midodrine 10 mg 3 times daily well so we will continue at discharge. We will discharge with cephalexin to complete about 7 days of treatment for cellulitis. Continue ciprofloxacin once a day at discharge for spontaneous bacterial peritonitis prophylaxis. Patient has a appointment with GI in clinic on 03/08/2022. She may be a candidate for a TIPS procedure for recurrent ascites and history of intolerance of diuretic therapy. The patient may also be a candidate for nonselective beta-sarah therapy however it is not clear if her blood pressure will tolerate a beta-sarah at this time. Follow-up with primary care provider to repeat lab work, recommend CBC and complete metabolic panel. I anticipate that midodrine could be weaned down in the near future. Discharged to home, the patient is at increased risk for hospital readmission. 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 -Monitor sodium, avoid correction > 8 mmol/L/24 hrs. -Monitor hemoglobin. -Analgesics as needed for lower extremity pain secondary to cellulitis. -Midodrine 3 times daily. -Continue home mirtazapine, lactulose, trazodone at bedtime as needed. -Holding home Lasix, spironolactone, metoprolol for now. -Therapeutic paracentesis as needed. -Fluid and sodium restricted diet. -Wound care for lower extremities. -Nutrition consult. -PT consult. -CODE STATUS: Full -Disposition: Home when stable. Follow-up with hepatology for ongoing evaluation for liver transplant, follow-up with GI at [facility] for screening EGD for varices secondary to portal hypertension. Physical exam General: Chronically ill appearing 51-year-old female in no apparent distress. Head: Atraumatic, normal inspection. Eyes: normal appearance, no scleral icterus. Neck: full ROM Respiratory: no respiratory distress. Cardiovascular: Regular tachycardia, S1, S2. GI/Abdominal: Distended, soft, nontender, no guarding. Extremities: full range of motion, nontender. Neurological: CN II-XII intact, intact motor, intact sensation. Psychiatric: normal mood. Skin: Bilateral lower extremity redness and warmth with appearance of cellulitis, left lower extremity more impressive than right lower extremity. Discharge diagnosis: Acute on chronic hyponatremia Secondary discharge diagnosis: Decompensated liver cirrhosis Recurrent ascites, paracentesis dependent Hypotension secondary to liver cirrhosis Anemia Time Spent with Patient Time attestation: Total time spent providing and/or coordinating discharge services: EXAM Constitutional Vitals: Temp Pulse Resp BP Pulse Ox 98.2 F 115 H 20 110/77 97 03/07/22 04:51 03/07/22 06:00 03/07/22 08:05 03/07/22 10:07 03/07/22 08:05 Discharge Data Data Completed and Pending Labs on day of discharge: Labs from last 24 hours 03/07/22 03/07/22 03/07/22 05:49 05:48 05:48 WBC 10.6 RBC 2.88 L Hgb 8.7 L Hct 24.8 L MCV 86.1 MCH 30.2 MCHC 35.1 RDW 16.0 H Plt Count 114 L MPV 9.3 Seg Neutrophils % 69 Band Neutrophils % 2 Lymphocytes % 16 Monocytes % (Manual) 10 Eosinophils % (Manual) 2 Basophils % (Manual) 1 Platelet Estimate Decreased A RBC Morphology Abnormal A Hypochromasia Occ A Anisocytosis 1+ A Sodium Potassium Chloride Carbon Dioxide Anion Gap BUN Creatinine GFR Calculation Glucose Uric Acid Calcium Phosphorus Magnesium Iron 30 L TIBC 148 L Unsat Iron Binding 118 Transferrin % Sat 20 Total Bilirubin Direct Bilirubin GGT AST ALT Alkaline Phosphatase Lactate Dehydrogenase Total Protein Albumin Globulin Albumin/Globulin Ratio Triglycerides Fluid Source Fluid Color Fluid Appearance Fluid RBC Fluid Diff Comment Fluid Tot Cell Count Fluid Nucleated Cells Fluid Neutrophils Fluid Lymphocytes Fluid Monocytes Fluid Eosinophils Fluid Basophils Fluid Plasma Cells Fld Mesothelial Cells Peritoneal Source Peritoneal Color Peritoneal Appearance Peritoneal RBC Periton Nuc Cells Periton Neutrophils Periton Lymphocytes Peritoneal Monocytes Periton Mesothelial Peritoneal Tot Protein Peritoneal Albumin 0.2 03/07/22 03/06/22 03/06/22 05:48 18:57 18:51 WBC RBC Hgb Hct MCV MCH MCHC RDW Plt Count MPV Seg Neutrophils % Band Neutrophils % Lymphocytes % Monocytes % (Manual) Eosinophils % (Manual) Basophils % (Manual) Platelet Estimate RBC Morphology Hypochromasia Anisocytosis Sodium 120 L 119 L* Potassium 4.0 Chloride 94 L Carbon Dioxide 18 L Anion Gap 8.0 BUN 17 Creatinine 0.6 GFR Calculation 105 Glucose 99 Uric Acid 4.4 Calcium 8.0 L Phosphorus 2.2 L Magnesium 2.0 Iron TIBC Unsat Iron Binding Transferrin % Sat Total Bilirubin 2.3 H Direct Bilirubin 1.3 H GGT 81 H AST 42 H ALT 16 Alkaline Phosphatase 154 H Lactate Dehydrogenase 268 H Total Protein 4.9 L Albumin 3.1 L Globulin 1.8 L Albumin/Globulin Ratio 1.7 Triglycerides 49 Fluid Source Fluid Color Fluid Appearance Fluid RBC Fluid Diff Comment Fluid Tot Cell Count Fluid Nucleated Cells Fluid Neutrophils Fluid Lymphocytes Fluid Monocytes Fluid Eosinophils Fluid Basophils Fluid Plasma Cells Fld Mesothelial Cells Peritoneal Source Peritoneal Peritoneal Color Yellow Peritoneal Appearance Cloudy Peritoneal RBC <50,000 Periton Nuc Cells 226 Periton Neutrophils 6 Periton Lymphocytes 53 Peritoneal Monocytes 31 Periton Mesothelial 10 Peritoneal Tot Protein Peritoneal Albumin 03/06/22 03/06/22 18:51 12:39 WBC RBC Hgb Hct MCV MCH MCHC RDW Plt Count MPV Seg Neutrophils % Band Neutrophils % Lymphocytes % Monocytes % (Manual) Eosinophils % (Manual) Basophils % (Manual) Platelet Estimate RBC Morphology Hypochromasia Anisocytosis Sodium 123 L Potassium Chloride Carbon Dioxide Anion Gap BUN Creatinine GFR Calculation Glucose Uric Acid Calcium Phosphorus Magnesium Iron TIBC Unsat Iron Binding Transferrin % Sat Total Bilirubin Direct Bilirubin GGT AST ALT Alkaline Phosphatase Lactate Dehydrogenase Total Protein Albumin Globulin Albumin/Globulin Ratio Triglycerides Fluid Source TNP Fluid Color TNP Fluid Appearance TNP Fluid RBC TNP Fluid Diff Comment TNP Fluid Tot Cell Count TNP Fluid Nucleated Cells TNP Fluid Neutrophils TNP Fluid Lymphocytes TNP Fluid Monocytes TNP Fluid Eosinophils TNP Fluid Basophils TNP Fluid Plasma Cells TNP Fld Mesothelial Cells TNP Peritoneal Source Peritoneal Color Peritoneal Appearance Peritoneal RBC Periton Nuc Cells Periton Neutrophils Periton Lymphocytes Peritoneal Monocytes Periton Mesothelial Peritoneal Tot Protein 0.3 Peritoneal Albumin Preliminary micro results at discharge 03/03/22 14:16 Blood Culture - Preliminary Blood 03/03/22 14:07 Blood Culture - Preliminary Blood Lactobacillus Gasseri Discharge Plan Patient/Caregiver Discharge Instructions Activity: increase activity as tolerated Diet: Low Sodium (2gm) Activity Restrictions/Additional Instructions: Take cephalexin for 4 more days to complete treatment for cellulitis, continue ciprofloxacin once a day for spontaneous bacterial peritonitis prophylaxis. Follow-up with GI as scheduled on 03/08/2022. Follow-up with your primary care provider for repeat lab work. Repeat paracentesis as needed with radiology. Prescriptions: New midodrine 5 mg Tablet 10 mg PO QDAY@0800,1200,1700 Qty: 180 2RF ciprofloxacin HCl [Cipro] 500 mg tablet 500 mg PO DAILY Qty: 30 3RF Continued multivitamin tablet 1 tab PO DAILY 0RF Label Comments: PO trazodone 50 mg tablet 50 mg PO QHS 0RF lactulose 20 gram/30 mL Solution 30 ml PO QIDP PRN (Reason: CONSTIPATION) Qty: 1200 3RF Rx Instructions: Take as needed for 2-3 loose bowel movements per day. mirtazapine 15 mg tablet 1 tab PO HS 0RF cephalexin 500 mg capsule 1 cap PO QID 0RF oxycodone 5 mg tablet 1 tab PO BIDP PRN (Reason: Pain) 0RF Discontinued furosemide 40 mg Tablet 40 mg PO DAILY Qty: 60 3RF pentoxifylline 400 mg Tablet Extended Release 400 mg PO TID Qty: 75 0RF M-Klck-Oclutva 250 mg tablet 1 tab PO BID Qty: 4 0RF potassium chloride 20 mEq packet 20 meq PO BID Qty: 4 0RF spironolactone 50 mg Tablet 50 mg PO QDAY 0RF metoprolol succinate 25 mg tablet extended release 24 hr 0.5 tab PO QDAY 0RF Follow Up Plan Follow up with: Lencho Pandey DO [Primary Care Provider] - Patient Disposition: Home, Self-Care Overall status at discharge: patient is progressing back to baseline Discharge Orders: Discharge Order (Routine); Ordered 03/07/22 Ordered By: Antoni BENTON VTE Deep Vein Thrombosis/Pulmonary Embolism Present on Admission: No
--- NOTE | 2022-03-08 08:00 | EKG ---
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 Measurements Intervals [place] Rate: 117 P: [place]: QRS: 17 QRSD: 72 T: 45 QT: 358 QTc: 500 Interpretive Statements Sinus tachycardia Low voltage Borderline prolonged QT interval Electronically Signed On 03-08-2022 8:00:40 PDT by Bindu Jessica D.O. /[id number]
== END 2022-03-07 12:03 | disposition home or self-care (01) | DRG 872 ==
LOC: ED 11:40 → ICU 15:51
PROVIDERS: ADMIT Internal Medicine; ATTEND Internal Medicine